=== PATIENT | male | born 1955 | race Caucasian/White ===

== ENCOUNTER 2020-01-05 13:24 | Emergency (ER) | payer BC, SELFPAY ==
[2020-01-05 13:26] VITALS: BP 159/88; PULSE 88; RESP 18; TEMP 36.4; O2SAT 96; BMI 25.9
--- NOTE | 2020-01-05 14:17 | ED.VIS.BACK ---
History of Present Illness Chief Complaint: Back Narrative: Patient presenting for evaluation secondary to back pain. History was somewhat limited on the patient secondary to his speech being difficult to understand. Patient reports that since Sunday he has been having back pain. He does feel that this was associated with lifting twisting pushing and pulling. Patient denies that there is any sort of specific injury associated with this, but states that over the course of the week it is been getting worse and now it radiates somewhat down his left leg. He states that the pain in his left leg is associated with a burning, be stinging type pain. He denies any bowel or bladder incontinence. Denies any fevers. Denies any recent injections, surgeries, or IV drug abuse. No numbness or weakness associated with this. Patient reports that he has not taken any [id number] analgesics for this. Review of systems otherwise negative. Past Medical History - Allergies and Home Meds Allergies/Adverse Reactions: Allergies No Known Allergies Allergy (Verified 01/05/20 13:28) Primary Care Physician: Trevre Acharya MD [STAFF PHYSICIAN] - As Needed Prior records reviewed: Yes Past Medical History: None Smoking Status: Never smoker Review of Systems All systems negative except as indicated General: Denies: Chills, Fever, Sweats Eyes: Denies: Visual changes - bilaterally, Diplopia ENT: Denies: Rhinorrhea, Sore throat Cardiovascular: Denies: Chest pain, Palpitations Respiratory: Denies: Dyspnea, Cough, Dyspnea on exertion Gastrointestinal: Denies: Abdominal pain, Nausea, Vomiting, Diarrhea, Melena, Hematochezia Genitourinary: Denies: Dysuria, Hematuria, Frequency Musculoskeletal: Reports: Back pain Skin: Denies: Rash, Wounds Neurological: Denies: Headache, Weakness, Numbness Physical Exam Vital Signs/Narrative: Vital Signs Temp Pulse Resp BP Pulse Ox 01/05/20 13:26 97.6 F L 88 18 159/88 H 96 Inital Vital Signs reviewed: Yes General: Well nourished, Well developed Head: Normocephalic, Atraumatic Eyes: Perrl, EOMI ENT: Moist mucous membranes, No rhinorrhea Neck: Supple, Nontender Cardiovascular: Regular rate, Regular rhythm, No murmurs Respiratory: No distress, CTA bilaterally, Chest nontender Abdomen: Soft, Nontender, Nondistended, Normal bowel sounds. Negative for: Pulsatile mass Back: Normal Inspection, Nontender, - - No reproducible tenderness of the back. 5 out of 5 strength at the hip knee ankle and foot with normal sensation over all dermatomes. 2+ Achilles and patellar reflexes with negative clonus. Normal distal pulses. Negative straight leg raise bilaterally. Extremeties: Nontender, No edema Skin: Normal color, No rash Neuro: Alert, Oriented, Normal Strength, Normal Sensation, Normal DTR, Normal Gait Psychological: Normal affect Diagnostic/Tx/Re-eval - Medical Decision Making Patient presented secondary to back pain. He has a reassuring physical exam, no evidence of red flag signs or symptoms or indications for neuroimaging. Patient has not tried any sort of intervention at home including no NSAIDs, so starting the patient on a initial course of NSAIDs for potential sciatica seems appropriate. He was placed on a course of Naprosyn. He was discharged in stable condition. ED Disposition - Plan for ED Patient: Disposition: Home or Assisted Living Diagnosis: Sciatica Instructions: Understanding Sciatica Prescriptions: Naproxen 500 mg PO BID #20 tab Prescription Printed Referrals: Trever Acharya MD [STAFF PHYSICIAN] - As Needed
[2020-01-05 15:01] VITALS: RESP 16
== END 2020-01-05 15:01 | disposition home or self-care (01) ==
LOC: ED 14:48
PROVIDERS: Emergency Provider Emergency Medicine
DX: M54.42 Lumbago with sciatica, left side (principal)
CPT/HCPCS: 99282

== ENCOUNTER 2020-04-14 15:28 | Emergency (ER) | payer BC, SELFPAY ==
[2020-04-14 15:29] VITALS: BP 167/111; PULSE 111; RESP 18; TEMP 36.8; O2SAT 97; BMI 25.9
[2020-04-14 15:50] VITALS: O2SAT 98
--- NOTE | 2020-04-14 15:50 | EKG12_ITS ---
Test Reason : CP Blood Pressure : / mmHG Vent. Rate : 108 BPM Atrial Rate : 108 BPM P-R Int : 134 ms QRS Dur : 070 ms QT Int : 320 ms P-R-T Axes : 035 -22 018 degrees QTc Int : 428 ms Sinus tachycardia Minimal voltage criteria for LVH, may be normal variant Inferior infarct , age undetermined Abnormal ECG Confirmed by ROSEMARIE SKELTON, CHAMP ([id number]), movie editor WILFRID RODRIGUEZ ([id number]) on 04/19/2020 12:51:56 PM Referred By: HARINDER Confirmed By:CHAMP HOUSTON MD
--- NOTE | 2020-04-14 16:00 | RAD_ITS ---
STUDY: X-RAY CHEST REASON FOR EXAM: Male, 64 years old. RIGHT SIDED CHEST PAIN FOR 1 WEEK TECHNIQUE: Single AP portable view of the chest. COMPARISON: None. FINDINGS: Moderate lung volumes. No infiltrates or effusions. There is mild cardiac enlargement. Normal mediastinum and saturnino. Normal visualized pulmonary arteries. Normal visualized aortic arch and descending thoracic aorta. Normal visualized thoracic spine. Normal visualized ribs, clavicles, and shoulders. There is no demonstrated abnormality of the visualized soft tissue structures of the upper abdomen. RAD/Chest 1 View (Portable) IMPRESSION: No definite acute or significant abnormality seen. Electronically Signed: Jesse Velarde MD at 16:13 EDT , Service support ,
[2020-04-14] MEDS: Acetaminophen 500 MG Tablet 1000 MG PO (16:06)
[2020-04-14] MEDS: Aspirin 81 MG TAB.CHEW 324 MG PO (16:06)
[2020-04-14] MEDS: 0.9% Normal Saline 1,000 ML 1000 ML IV (16:06)
[2020-04-14 16:11] LABS: Absolute Lymphocyte Count 0.61 X10^3/uL (0.83-4.51); Absolute Neutrophil Count 4.3 X10^3/uL (2.0-7.7); Basophil# 0.02 X10^3/uL; Basophil% 0.4 % (0-1); Eosinophil# 0.03 X10^3/uL; Eosinophils% 0.5 % (0-5); Hematocrit 46.1 % (40-54); Hemoglobin 15.5 g/dL (13.0-16.5); Lymphocyte # 0.61 X10^3/ul (4.0); Lymphocyte % 10.9 % (19-41); Mean Corp Hgb Conc 33.6 g/dL (32-36); Mean Corpuscular Hgb 34.4 pg (27.0-32.0); Mean Corpuscular Volume 102.2 fL (80-94); Mean Platelet Vol. 8.9 fl (6.2-12.0); Monocyte# 0.63 X10^3/uL; Monocyte% 11.2 % (0-10); NRBC Flagged by Analyzer 0 % (0-5); Neutrophil % 76.6 % (47-70); Platelet Count 317 K/mm3 (150-450); RBC Distribution Width CV 12.5 % (11.6-14.6); RBC Distribution Width SD 47.3 fl (35.1-43.9); Red Blood Count 4.51 M/mm3 (4.6-6.2); White Blood Count 5.6 K/mm3 (4.4-11.0)
--- NOTE | 2020-04-14 16:23 | ED.VISSUMM ---
- ER Visit Summary Date of Service: 04/14/20 Chief Complaint: Chest pain History of Present Illness: The patient is a 64 M presenting with chest pain. Patient states this started approximately 1 week ago. Pain is intermittent on the right side of his chest. It is worsened with bending over. He has associated shortness of breath. Denies fever or cough. He is not a smoker. Denies recent fall. Denies other complaints. Physical Examination: Vitals are stable. Patient is afebrile. Alert no acute distress. HEENT exam is unremarkable. Neck is supple. Lungs are clear and equal bilaterally. Right chest wall tenderness with no crepitus Heart is regular rate and rhythm. Abdomen is soft nontender nondistended. Extremities are unremarkable. Skin is warm and dry. No rash No focal neurologic deficit. Remainder of exam is unremarkable. Emergency Department Course and Treatment: EKG is sinus tachycardia rate of 108 with no acute ischemic changes. Patient declined morphine, he was given Tylenol. Chest x-ray shows no acute process. CBC, chemistries unremarkable. Troponin is negative. D-dimer was 0.55. This was discussed with the patient. Recommend CTA chest to rule out PE. Patient declines further testing and states he needs to leave the emergency department. He is advised risks of leaving AGAINST MEDICAL ADVICE including [place], . Patient understands these risks and signed out AGAINST MEDICAL ADVICE. He is advised to return to the ED if he has worsening complaints. Disposition: Left AGAINST MEDICAL ADVICE Impression: Chest pain This note was generated with [employer] dictation software. It may contain incorrect words, spelling, and punctuation that were not noted in review of the chart prior to signing ED Disposition - Plan for ED Patient: Instructions: ED Chest Pain Atypical Unkn Cause Referrals: Raul Zuniga DO [NON CLINICAL AFFILIATE] -
[2020-04-14 16:27] LABS: Anion Gap 6 (5-15); BUN 12 mg/dL (7-18); BUN/Creat Ratio 12.8 RATIO (10-20); Calcium,Total 8.9 mg/dL (8.5-10.1); Chloride 107 mmol/L (98-107); Creatinine, Serum 0.94 mg/dL (0.70-1.30); EST Glomerular Filtration Rate 87 mL/min (>60); Est Glom Filt Rate - Afr Amer 105 mL/min (>60); Estimated Creatinine Clearance 78.83 ml/min; Glucose 94 mg/dL (74-106); Potassium 4.1 mmol/L (3.5-5.1); Sodium Level 141 mmol/L (136-145)
[2020-04-14 17:00] LABS: D-Dimer Quantitative (DVT/PE) 0.55 FEU/ug/m (0.27-0.49)
--- NOTE | 2020-04-14 17:12 | ED.DEP ---
ED Disposition - Plan for ED Patient: Instructions: ED Chest Pain Atypical Unkn Cause Referrals: Raul Zuniga DO [NON CLINICAL AFFILIATE] -
[2020-04-14 17:24] VITALS: BP 164/90; PULSE 76; RESP 18; O2SAT 99
== END 2020-04-14 17:26 | disposition left against medical advice (07) ==
PROVIDERS: Emergency Provider Emergency Medicine
DX: R07.89 Other chest pain (principal); R06.00 Dyspnea, unspecified; Z53.21 Procedure and treatment not carried out due to patient leaving prior to being seen by health care provider
CPT/HCPCS: 71045; 80048; 84484; 85025; 85379; 93005; 96360; 99285; J7030; A4216

== ENCOUNTER 2021-04-16 08:27 | Emergency (ER) | payer MEDICARE, SELFPAY ==
[2021-04-16 08:28] VITALS: BP 149/117; PULSE 109; RESP 20; TEMP 35.9; O2SAT 97; BMI 26.2
[2021-04-16 08:30] VITALS: BP 149/117; PULSE 109; RESP 20; TEMP 35.9; O2SAT 97
[2021-04-16] MEDS: Loratadine 10 MG Tablet 5 MG PO (09:05)
--- NOTE | 2021-04-16 09:18 | EX.ED.DYSGE1 ---
HPI History of Present Illness Chief Complaint: Cough Narrative Narrative: Patient presents with cough and congestion runny nose itchy eyes for 1 week. No shortness of breath. No fever or chills. 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 [facility] Home Medications NK 04/14/20 [History Last Taken Unknown] Allergy/AdvReac Type Severity Reaction Status Date / Time bee venom protein (honey bee) Allergy Anaphylaxis Verified 04/16/21 08:28 Social History Smoking Status: Unknown if ever smoked ROS ROS ED ROS Narrative Past medical history: Reviewed, negative Medications: Reviewed Social history: Noncontributory Review of systems: All systems negative except as indicated General: No fever Eyes: No visual changes. Itchy eyes ENT: Rhinorrhea, upper airway congestion, itchy eyes Neck: No neck pain Cardiovascular: No chest pain Respiratory: No shortness of breath. There is a nonproductive cough. Gastrointestinal: No abdominal pain, nausea vomiting or diarrhea Genitourinary: No dysuria Musculoskeletal: Denies myalgias no difficulty with ambulation Skin: No rash Neurological: No memory loss, confusion or any focal weakness Hematologic: No easy bleeding or easy bruising EXAM Physical Exam Narrative Exam Narrative: Physical exam General: Well nourished, Well developed, No Acute Distress Head: Normocephalic, Atraumatic Eyes: Conjunctiva not pale ENT: Moist mucous membranes. He has upper airway congestion and rhinorrhea. Nasal turbinates are swollen but they are not red. No significant postnasal drip. No pharyngeal erythema. Normal voice. Neck: Supple, Nontender, No lymphadenopathy Cardiovascular: Regular rate, Regular rhythm Respiratory: No distress, CTA bilaterally Abdomen: Soft, Nontender, Nondistended Back: Nontender, Normal Inspection. Negative for: CVA tenderness Extremities: Nontender, No edema Skin: Normal color, No rash Neurological: Alert, Normal Strength, Normal Sensation Psychological: Normal affect Const Vital Signs: 04/16/21 08:28 04/16/21 08:30 04/16/21 08:43 Temperature 96.6 F L 96.6 F L Temperature Source Temporal Temporal Pulse Rate 109 H 109 H Respiratory Rate 20 H 20 H Respiratory Effort Normal Non-Labored Blood Pressure 149/117 H 149/117 H Blood Pressure Mean 127 127 Pulse Ox 97 97 Oxygen Delivery Method Room Air Room Air MDM MDM MDM Narrative Medical decision making narrative: Patient is found to have COVID-19 with corresponding infiltrates on the x-ray. Otherwise he is saturating well he appears well. He is 65 years old without any medical problems therefore he does not meet criteria for monoclonal antibodies at this time. I will discharge with education and reassurance of anything changes he is to return. Otherwise he is to quarantine. Discharge Plan Triage Chief Complaint: Cough ED Provider: Bebo Cerda Dx/Rx/DC Orders Clinical Impression: COVID-19 Instructions: Coronavirus Disease 2019 (COVID-19): Overview Prescriptions: No Action NK RF: 0 Primary Care Provider: Care Physician,No Primary Referrals: Care Physician,No Primary [Primary Care Provider] - 3-5 Days Disposition Disposition: Home, Self Care
--- NOTE | 2021-04-16 09:20 | RAD_ITS ---
STUDY: X-RAY CHEST REASON FOR EXAM: Male, 65 years old. Cough TECHNIQUE: Single AP portable upright view of the chest. Images degraded by some motion artifact near the level of the diaphragm COMPARISON: Portable AP upright chest x-ray 04/14/2020 FINDINGS: The lungs are incompletely expanded which, when combined with motion artifact, limits evaluation. Some degree of bibasilar volume loss is likely present, but there is no acute lobar consolidation. There is no demonstrated pleural abnormality. There is borderline cardiomegaly. Normal mediastinum and saturnino. Normal visualized pulmonary arteries when allowing for crowding. Normal visualized aortic arch and descending thoracic aorta. There are stable multilevel degenerative changes of the visualized thoracic spine. Normal visualized ribs, clavicles, and shoulders. There is no demonstrated abnormality of the visualized soft tissue structures of the upper abdomen. RAD/Chest 1 View (Portable) IMPRESSION: X-ray examination of the chest degraded by poor territory effort and motion artifact. The heart is borderline enlarged. No overt CHF or new pneumonic infiltrate. Electronically Signed: Geovanny Garsia MD at 9:47 EDT , Service support ,
[2021-04-16 10:30] VITALS: RESP 14
[2021-04-16 10:32] VITALS: O2SAT 95
== END 2021-04-16 10:32 | disposition home or self-care (01) ==
PROVIDERS: Emergency Provider Emergency Medicine
DX: U07.1 COVID-19 (principal)
CPT/HCPCS: 71045; 87426; 99282

== ENCOUNTER 2022-05-17 18:16 | Emergency (ER) | payer MEDICARE, SELFPAY ==
[2022-05-17 18:17] VITALS: BP 168/94; PULSE 92; RESP 16; TEMP 37.1; O2SAT 96; BMI 29.4
--- NOTE | 2022-05-17 19:25 | ED.RN ---
pt states he is going home and will come back tomorrow
== END 2022-05-17 19:30 | disposition left against medical advice (07) ==
LOC: ED 19:45
DX: Z53.21 Procedure and treatment not carried out due to patient leaving prior to being seen by health care provider (principal)

== ENCOUNTER → 2022-06-15 | Outpatient (CLI) | payer MEDICAID, SELFPAY ==
[2022-06-15 11:48] LABS: Absolute Lymphocyte Count 0.67 X10^3/uL (0.83-4.51); Absolute Neutrophil Count 3.8 X10^3/uL (2.0-7.7); Basophil# 0.04 X10^3/uL; Basophil% 0.7 % (0-1); Eosinophil# 0.42 X10^3/uL; Eosinophils% 7.6 % (0-5); Hematocrit 48.6 % (40-54); Hemoglobin 16.7 g/dL (13.0-16.5); Lymphocyte # 0.67 X10^3/ul (0.83-4.51); Lymphocyte % 12.2 % (19-41); Mean Corp Hgb Conc 34.4 g/dL (32-36); Mean Platelet Vol. 8.9 fl (6.2-12.0); Monocyte# 0.53 X10^3/uL; Monocyte% 9.6 % (0-10); NRBC Flagged by Analyzer 0 % (0-5); Neutrophil # 3.84 X10^3/uL (2.7-7.7); Neutrophil % 69.7 % (47-70); Platelet Count 251 K/mm3 (150-450); RBC Distribution Width CV 12.3 % (11.6-14.6); RBC Distribution Width SD 45.2 fl (35.1-43.9); Red Blood Count 4.91 M/mm3 (4.6-6.2); White Blood Count 5.5 K/mm3 (4.4-11.0)
[2022-06-15 12:12] LABS: Anion Gap 7 (5-15); BUN 9 mg/dL (7-18); Calcium,Total 9.4 mg/dL (8.5-10.1); Chloride 106 mmol/L (98-107); EST Glomerular Filtration Rate 90 mL/min (>60); Est Glom Filt Rate - Afr Amer 109 mL/min (>60); Glucose 94 mg/dL (74-106); Potassium 4.3 mmol/L (3.5-5.1); Sodium Level 138 mmol/L (136-145)
== END | disposition home or self-care (01) ==
PROVIDERS: Visit Provider Nurse Practitioner Family
DX: R05.3 Chronic cough (principal)
CPT/HCPCS: 36415; 80048; 85025

== ENCOUNTER → 2022-06-16 | Outpatient (CLI) | payer MEDICAID, SELFPAY ==
--- NOTE | 2022-06-16 09:37 | RAD_ITS ---
INDICATION: CHRONIC COUGH EXAMINATION/TECHNIQUE: X-RAY - XR Chest 2 Views COMPARISON: 04/16/2021 chest x-ray FINDINGS: LINES/DEVICES: None. LUNGS: Symmetric normal lung volumes. No airspace opacity or abnormal interstitial pattern. No nodule or mass. No pleural effusion or pneumothorax. MEDIASTINUM AND CARDIOVASCULAR STRUCTURES: Normal size and contour of the cardiomediastinal silhouette. No evidence of pulmonary vascular congestion. BONES AND SOFT TISSUES: No fracture or focal osseous lesion. Moderate degenerative changes left glenohumeral joint. [id number] degenerative endplate changes of the visualized spine. RAD/Chest PA and Lateral IMPRESSION: 1. No radiographic evidence of acute cardiopulmonary disease. Electronically Signed: Chu Ibarra DO at 20:29 EST ,
== END | disposition home or self-care (01) ==
PROVIDERS: Referring Provider Nurse Practitioner Family; Visit Provider Nurse Practitioner Family
DX: R05.3 Chronic cough (principal)
CPT/HCPCS: 71046

== ENCOUNTER 2022-06-27 09:18 | Emergency (ER) | payer MEDICAID, SELFPAY ==
[2022-06-27 09:18] VITALS: PULSE 101; RESP 16; TEMP 36.7; O2SAT 96; BMI 25.7
--- NOTE | 2022-06-27 09:54 | CT_ITS ---
HISTORY: Anterior left rib trauma. Fell 3 days ago, left rib pain. TECHNIQUE: Helically acquired images were obtained of the chest without contrast. A radiation dose optimization technique was used for this scan. 940 images. COMPARISON: XR 06/16/2022. FINDINGS: LARGE AIRWAYS: Patent. LUNGS: Calcified granulomas and mild dependent atelectasis bilaterally. PLEURA: No pneumothorax or significant pleural effusion. HEART/PERICARDIUM: Heart within normal limits in size. Minimal coronary artery calcification. No pericardial effusion. VESSELS: Thoracic aorta nondilated. Mild atherosclerosis. MEDIASTINUM/JERALD: Mildly enlarged precarinal and paratracheal, and subcarinal lymph nodes. Calcified hilar and mediastinal lymph nodes also noted. UPPER ABDOMEN: Unremarkable. BONES: Old right posterior fifth and sixth and 10th and 11th rib fractures. Nondisplaced left anterior fourth through sixth rib fractures. Mild degenerative changes and scoliosis of the spine. CT/Chest without Contrast IMPRESSION: Nondisplaced left anterior fourth through sixth rib fractures. Chronic granulomatous disease in the chest with mildly enlarged calcified and noncalcified lymph nodes. Old right posterior rib fractures. Electronically Signed: Laisha Lambert MD at 10:27 EST ,
--- NOTE | 2022-06-27 10:03 | EX.ED.GENINJ ---
HPI History of Present Illness Chief Complaint: Fall Informant: patient Narrative Narrative: Patient presented to the emergency room with left anterior chest pain. Patient states that on Sunday he fell at his house striking the table on his left anterior ribs. He also notes that he injured his left lateral thigh and that is bruised. He states that he is continue to have pain in the chest and that its making him feel short of breath because he cannot take a deep breath. He denies any hemoptysis or fevers. He notes a slight cough. No abdominal symptoms and no hematuria. [facility] Medical History (Updated 06/27/22 @ 10:[address] Gab Schuler DO) HTN (hypertension) Home Medications oxycodone-acetaminophen 5 mg-325 mg tablet 1 tab PO Q6H PRN PRN pain 5 days #20 TABLETS 06/27/22 [Rx Last Taken Unknown] Allergy/AdvReac Type Severity Reaction Status Date / Time bee venom protein (honey bee) Allergy Anaphylaxis Verified 06/27/22 09:21 Social History (Updated 06/27/22 @ 10:[address] Gab Schuler DO) Smoking Status: Former smoker substance use type: does not use ROS ROS ED Constitutional Constitutional ED: Denies chills, fever(s) or weight loss Eyes Eyes: Denies change in vision or diplopia ENT ENT ED: Denies ear pain, rhinorrhea or sore throat Cardiovascular Cardiovascular: Reports chest pain; Denies orthopnea, palpitations or racing heartbeat Respiratory/Chest Respiratory/Chest: Denies cough, dyspnea or orthopnea Gastrointestinal Gastrointestinal: Denies abdominal pain, diarrhea, nausea or vomiting Genitourinary Genitourinary ED: Denies dysuria, hematuria or urinary frequency Musculoskeletal Musculoskeletal: Reports other; Denies arthralgias or myalgias Integumentary Denies abscess or rash Neurologic Neurologic: Denies headache(s) or weakness Psychiatric Psychiatric: Denies anxiety, depression, suicidal ideation or suicidal thoughts Endocrine Endocrinology: Denies polydipsia, polyphagia or polyuria Allergic/Immunologic Allergic/Immunologic ED: Denies mouth swelling, tongue swelling or urticaria EXAM Physical Exam Const Vital Signs: 06/27/22 09:18 06/27/22 10:11 Temperature 98.1 F Temperature Source Temporal Pulse Rate 101 H Respiratory Rate 16 Respiratory Effort Normal Non-Labored Pulse Ox 96 Oxygen Delivery Method Room Air Positive well nourished and well developed General Appearance ED: well developed HEENT Reports normocephalic, head/scalp atraumatic and moist mucous membranes Eyes PERRL and EOMs intact bilaterally Neck no lymphadenopathy, supple and no JVD Chest Wall Chest Narrative: Left anterior lower chest wall tenderness to palpation. No crepitance is felt. No obvious deformities felt. Resp normal respiratory effort and clear to auscultation bilaterally Cardio regular rate, regular rhythm and no murmurs GI normal to inspection, nondistended, normoactive bowel sounds and non-tender Palpation: soft Back/Spine no CVA tenderness and normal ROM Extremity normal to inspection General Extremety ED: Negative for edema General Extremity: Negative for edema Neuro oriented x3 and CN's II-XII intact bilaterally Sensorium / Orientation: alert Motor Exam: strength 5/5 throughout Psych mental status grossly normal Mood & Affect: Negative for depressed or tearful Skin no rashes or lesions noted and no wounds MDM MDM MDM Narrative Medical decision making narrative: CT the chest was obtained which demonstrates nondisplaced fractures of the left fourth 5 and sixth ribs. Patient will have pain medicine written for him. I do not see any evidence of hemothorax or pneumothorax. There is no pneumonia. Would recommend follow-up 1 to 2 weeks return if worsening or concerns Radiography Diagnostic Testing: Clinical Impression(s) from Imaging Studies Chest CT 06/27/22 09:54 IMPRESSION: Nondisplaced left anterior fourth through sixth rib fractures. Chronic granulomatous disease in the chest with mildly enlarged calcified and noncalcified lymph nodes. Old right posterior rib fractures. Electronically Signed: Laisha Lambert MD at 10:27 EST , Discharge Plan Triage Chief Complaint: Fall ED Provider: Gab Schuler Dx/Rx/DC Orders Clinical Impression: Contusion of left thigh, Left rib fracture, Fall Instructions: ED Rib Fracture Prescriptions: New oxycodone-acetaminophen [oxycodone-acetaminophen] 5-325 mg tablet 1 tab PO Q6H PRN PRN (Reason: pain) 5 Days Qty: 20 0RF [facility]Primary Care Provider] - 1-2 Weeks Disposition Disposition: Home, Self Care
== END 2022-06-27 11:02 | disposition home or self-care (01) ==
PROVIDERS: Emergency Provider Emergency Medicine; Visit Provider Emergency Medicine
DX: S22.43XA Multiple fractures of ribs, bilateral, initial encounter for closed fracture (principal); I10 Essential (primary) hypertension; S70.12XA Contusion of left thigh, initial encounter; Z87.891 Personal history of nicotine dependence; W19.XXXA Unspecified fall, initial encounter
CPT/HCPCS: 71250; 99282

== ENCOUNTER → 2022-09-28 | Outpatient (CLI) | payer MEDICAID, SELFPAY ==
--- NOTE | 2022-09-28 15:50 | RAD_ITS ---
STUDY: X-RAY - LEFT KNEE REASON FOR EXAM: Male, 66 years old. L KNEE PAIN TECHNIQUE: 3 view(s) of the knee. COMPARISON: None. FINDINGS: Normal visualized distal femur. Normal visualized proximal tibia and fibula. Normal proximal tibiofibular articulation. Mildly narrowed medial femorotibial compartment. Normal lateral femorotibial compartment. Normal patellofemoral articulation. The soft tissue structures are unremarkable. RAD/Knee 3 Views IMPRESSION: Mild degenerative change. No acute fracture or other significant bony pathology Electronically Signed: Yonathan Dumont MD at 21:48 EST ,
--- NOTE | 2022-09-28 15:50 | RAD_ITS ---
STUDY: X-RAY - LUMBAR SPINE REASON FOR EXAM: Male, 66 years old. LUMBAR PAIN TECHNIQUE: AP and lateral view(s) of the lumbar spine were obtained. COMPARISON: None FINDINGS: Normal lumbar lordosis. There is severe dextro scoliosis. There is a normal alignment of the vertebrae. No evidence for acute fracture or subluxation. No lytic or sclerotic bony lesions . Multilevel disc space narrowing and endplate spurring. The soft tissue structures are unremarkable. RAD/Lumbar Spine 2 or 3 Views IMPRESSION: Scoliosis and degenerative change. No acute fracture or other significant bony pathology. Electronically Signed: Yonathan Dumont MD at 21:43 EST ,
--- NOTE | 2022-09-28 16:00 | RAD_ITS ---
STUDY: X-RAY - PELVIS AND LEFT HIP REASON FOR EXAM: Male, 66 years old. LUMBAR PAIN TECHNIQUE: 3 views of the pelvis and hip. COMPARISON: None. FINDINGS: There is a non-specific bowel gas pattern. Normal visualized soft tissue structures. Normal bilateral iliac wings, sacroiliac joints and visualized sacrum. Normal bilateral superior and inferior pubic rami. Normal pubic symphysis. Normal bilateral ischial tuberosities. Normal visualized femoral head. Mild acetabular spurring.. Narrowed superolateral hip joint. RAD/HIP, UNI W/ Pelvis 2-3 Views IMPRESSION: Degenerative changes of the left hip [. No acute hip or pelvic fracture. Electronically Signed: Yonathan Dumont MD at 21:49 EST ,
== END | disposition home or self-care (01) ==
LOC: RAD 15:46
PROVIDERS: Referring Provider Nurse Practitioner Family; Visit Provider Nurse Practitioner Family
DX: M25.562 Pain in left knee (principal); M54.16 Radiculopathy, lumbar region
CPT/HCPCS: 72100; 73502; 73562

== ENCOUNTER 2022-10-05 14:18 | Emergency (ER) | payer MEDICARE, MEDICAID, SELFPAY ==
[2022-10-05 14:19] VITALS: BP 159/82; PULSE 74; RESP 14; TEMP 36.8; O2SAT 98; BMI 25.5
--- NOTE | 2022-10-05 16:43 | EX.ED.DYSGE1 ---
HPI <CRISTINA Camargo - Last Filed: 10/05/22 17:40> History of Present Illness Chief Complaint: Other, Pain/Inj Narrative Narrative: 66-year-old male with history of difficulty speaking secondary to an accident when he was 20 years old presents to the emergency department for left sided rib pain. Patient denies any injury. Patient states it hurts with certain movements as well as lifting objects. He was told to come here to be evaluated. Patient states that it feels muscle skeletal however he wants to be sure. He denies any cough, fever chills nausea or vomiting. Denies any injury. PFS <CRISTINA Camargo - Last Filed: 10/05/22 17:40> [facility] Medical History HTN (hypertension) Home Medications oxycodone-acetaminophen 5 mg-325 mg tablet 1 tab PO Q6H PRN PRN pain 5 days #20 TABLETS 06/27/22 [Rx Last Taken Unknown] ibuprofen 600 mg tablet 600 mg PO Q6H PRN PRN pain #20 TABLETS 10/05/22 [Rx Last Taken Unknown] Allergy/AdvReac Type Severity Reaction Status Date / Time bee venom protein (honey bee) Allergy Anaphylaxis Verified 10/05/22 14:20 Social History (Updated 06/27/22 @ 10:[address] Gab Schuler, DO) Smoking Status: Former smoker substance use type: does not use ROS <CRISTINA Camargo - Last Filed: 10/05/22 17:40> ROS ED ROS Narrative Constitutional: Negative for fever, chills, weight loss, weakness Eyes: Negative for vision loss, vision change, double vision ENT: Negative for any sore throat, ear pain, congestion Cardiovascular: Negative for any chest pain, tightness, palpitations Respiratory: Negative for any cough, sputum production, hemoptysis, dyspnea, dyspnea on exertion, orthopnea Gastrointestinal: Negative for any abdominal pain, nausea, vomiting, diarrhea, constipation, blood in stool, blood in vomit : Negative for any urinary frequency, dysuria, retention, blood in urine Muscle skeletal: Negative for any muscle joint pain, stiffness, myalgias, arthralgias, neck pain. Positive for left anterior chest pain Neurological: Negative for any headache, syncope, numbness or tingling, dizziness Skin: Negative for any rashes, lumps, itching, abrasions, lacerations Psychiatric: Negative for any depression, anxiety, stress, suicidal ideation, homicidal ideation Hematologic: Negative for any easy bruising, excessive bruising, easy bleeding Allergies: Negative for any eczema, hives, rash EXAM <CRISTINA Camargo - Last Filed: 10/05/22 17:40> Physical Exam Narrative Exam Narrative: Vital signs reviewed. HEET: Head normocephalic atraumatic, TMs clear bilaterally. Posterior pharynx is clear, moist mucous membranes. Nares clear bilaterally. Neck: Supple with no lymphadenopathy or tenderness. No signs of meningismus, negative jolt sign. Cardiac: Regular rate and rhythm no murmurs gallops or rubs, equal peripheral pulses bilaterally. Respiratory: Lungs clear to auscultation bilaterally. Patient has some left anterior, lateral chest tenderness. Worse on palpation. When raising the patient's arms up and turning, this caused more pain. Denies any pain with inspiration. Abdomen: Soft, nontender, nondistended. No abdominal bruit or pulsatile masses. No hepatosplenomegaly Extremities: No peripheral edema, no signs of gross trauma or deformity. Active full range of motion of all extremities. Neuro: Cranial nerves II through XII intact, no focal neurological deficits. Skin: Clean dry and intact with no rash, purpura, petechiae, vesicles or pustules. Backs/flank: No CVA tenderness, no midline spinal tenderness, no deformity. Psych: Normal mood and affect. No SI, HI or acute psychosis. Const Vital Signs: 10/05/22 14:19 10/05/22 17:47 Temperature 98.3 F Temperature Source Temporal Pulse Rate 74 Respiratory Rate 14 Respiratory Effort Normal Respiratory Pattern Normal Blood Pressure 159/82 H Blood Pressure Mean 107 Pulse Ox 98 Oxygen Delivery Method Room Air Positive well nourished and well developed General Appearance ED: well developed <Dr. Gee Talley DO - Last Filed: 10/05/22 23:13> Physical Exam Const Vital Signs: 10/05/22 14:19 10/05/22 17:47 Temperature 98.3 F Temperature Source Temporal Pulse Rate 74 Respiratory Rate 14 Respiratory Effort Normal Respiratory Pattern Normal Blood Pressure 159/82 H Blood Pressure Mean 107 Pulse Ox 98 Oxygen Delivery Method Room Air MDM <CRISTINA Camargo - Last Filed: 10/05/22 17:40> [facility] Radiography Diagnostic Testing: Clinical Impression(s) from Imaging Studies Ribs w/Chest X-Ray 10/05/22 16:50 IMPRESSION: Negative chest and left ribs series. Electronically Signed: Henok Lezama MD at 17:13 EST , Treatment and Re-Evaluation :: All radiologic examinations were read, reviewed by the emergency department attending. From these reads, a plan of care will be put in place. Patient appears well, patient appears nontoxic, vital signs are stable. Patient presents to the emergency department with complaints of left-sided rib pain has been ongoing for last week. Patient thinks it is a muscle pain however he is concerned, and he was told to come to the emergency department. Patient's physical examination is consistent with a muscle strain. Patient will receive x-rays of the left side of the ribs as well as a chest. Differential diagnosis include pneumonia, costochondritis, rib fracture. Patient had no significant trauma, patient's x-rays were unremarkable. At this time, patient be treated with a muscle strain. He will be treated with ibuprofen 600 mg. He is instructed return for any worsening symptoms. Patient stable for discharge. <Dr. Gee Talley DO - Last Filed: 10/05/22 23:13> [facility] Narrative Medical decision making narrative: This patient was seen with a PA/FLATBED OWNER OPERATOR Individually assessed they patient including history and physical. I have reviewed everything on the chart that is available and agree with the documentation provided by the PA/FLATBED OWNER OPERATOR including discussion about the assessment, treatment plan, discussion, and return precautions. Patient with rib pain. Nontraumatic. Low suspicion for pneumonia or rib fracture but x-rays were obtained and these are negative on my interpretation. Patient request ibuprofen for home. Discharged stable condition. Radiography Diagnostic Testing: Clinical Impression(s) from Imaging Studies Ribs w/Chest X-Ray 10/05/22 16:50 IMPRESSION: Negative chest and left ribs series. Electronically Signed: Henok Lezama MD at 17:13 EST , Discharge Plan Triage Chief Complaint: Other, Pain/Inj ED Midlevel Provider: Bebo Arriaga ED Provider: Gee Talley Dx/Rx/DC Orders Clinical Impression: Acute chest wall pain Instructions: ED Chest Pain, Noncardiac Prescriptions: New ibuprofen 600 mg tablet 600 mg PO Q6H PRN PRN (Reason: pain) Qty: 20 0RF No Action oxycodone-acetaminophen [oxycodone-acetaminophen] 5-325 mg tablet 1 tab PO Q6H PRN PRN (Reason: pain) 5 Days Qty: 20 0RF Primary Care Provider: [facility] Priti Littlejohn Referrals: [facility] Eron,Priti Ruiz [Primary Care Provider] - Disposition Disposition: Home, Self Care Discharge Date/Time: 10/05/22 17:49
--- NOTE | 2022-10-05 16:50 | RAD_ITS ---
EXAM: XR LEFT RIBS AND AP CHEST, 3 OR MORE VIEWS CLINICAL INDICATION: rib pain TECHNIQUE: Frontal and oblique views of the left ribs and frontal view of the chest. This report was created using mohchi report Pond[employer] technology. COMPARISON: None. FINDINGS: LUNGS AND PLEURAL SPACES: Unremarkable. No consolidation or edema. No pneumothorax. No effusion. HEART: Unremarkable. Cardiac silhouette not enlarged. MEDIASTINUM: Central airways and mediastinal contour are unremarkable. BONES/JOINTS: Unremarkable. No evidence of displaced rib fractures. RAD/Ribs Uni Min 3V w/PA Chest IMPRESSION: Negative chest and left ribs series. Electronically Signed: Henok Lezama MD at 17:13 EST ,
== END 2022-10-05 17:49 | disposition home or self-care (01) ==
PROVIDERS: Emergency Provider Student in an Organized Health Care Education/Training Program; Visit Provider Student in an Organized Health Care Education/Training Program
DX: R07.81 Pleurodynia (principal); R07.89 Other chest pain; Z87.891 Personal history of nicotine dependence; I10 Essential (primary) hypertension
CPT/HCPCS: 99281; 71101; 99282

== ENCOUNTER 2023-01-08 17:26 | Observation (INO) | payer MEDICARE, MEDICAID, SELFPAY ==
--- NOTE | 2022-12-29 11:49 | NURSING ---
PAT INTERVIEW WITH ROXANNA OLIVERA. ROXANNA STATES PT RESIDES AT [facility] AN INDEPENDENT RESIDENT. ROXANNA WORKS WITH PT THROUGH [facility] AND STATES THAT POSTOP PT WILL BE TRANSITIONED TO ASSISTED LIVING AT [facility]. ROXANNA STATES PT HAS SLOW MENTATION WITH NO DIAGNOSIS R/T MENTATION. ROXANNA AND PT INSTRUCTED ON MEDS TO TAKE DOS, NPO, SHOWER PREP AND ARRIVAL.
[2023-01-03 10:22] LABS: Hematocrit 48.6 % (40-54); Hemoglobin 15.7 g/dL (13.0-16.5); Mean Corp Hgb Conc 32.3 g/dL (32-36); Mean Corpuscular Hgb 32.8 pg (27.0-32.0); Mean Corpuscular Volume 101.5 fL (80-94); Mean Platelet Vol. 9.7 fl (6.2-12.0); Platelet Count 229 K/mm3 (150-450); RBC Distribution Width CV 13.2 % (11.6-14.6); RBC Distribution Width SD 50.2 fl (35.1-43.9); Red Blood Count 4.79 M/mm3 (4.6-6.2)
[2023-01-03 11:22] LABS: Anion Gap 4 (5-15); BUN 10 mg/dL (7-18); BUN/Creat Ratio 9.5 RATIO (10-20); Calcium,Total 9.1 mg/dL (8.5-10.1); Chloride 104 mmol/L (98-107); Creatinine, Serum 1.05 mg/dL (0.70-1.30); EST Glomerular Filtration Rate 75 mL/min (>60); Est Glom Filt Rate - Afr Amer 91 mL/min (>60); Glucose 80 mg/dL (74-106); Potassium 4.2 mmol/L (3.5-5.1); Sodium Level 138 mmol/L (136-145)
[2023-01-08] VITALS (11 sets, daily range): BP systolic 129–140; BP diastolic 62–91; PULSE 67–91; RESP 16–24; TEMP 36.2–37.1; O2SAT 93–100; BMI 32.1; BMI 32.2; BMI 32.4
[2023-01-08] MEDS: Lactated Ringers 1,000 ML 15 ML IV ×2 (12:40→15:40)
--- NOTE | 2023-01-08 12:46 | HP.PCM_ITS ---
History and Physical Date of Admission: 01/08/23 Intake Vital Signs ? 10/05/2313:19 12/27/2308:46 Height 5 ft 8 in 5 ft 8 in Weight: 168 lb 217 lb 8 oz BMI 25.5 33.0 BP 159/82 H 156/89 H Blood Pressure Location ? Rt radial Position ? Sitting RespirationB 14 19 H Pulse 74 68 Pulse Source ? Monitor Temp 98.3 F 97.6 F L D Temp Source Temporal Temporal Pulse Oximetry (%) 98 96 Intake Visit Reasons:?L INGUINAL HERNIA AT RISK FOR INCARCERATION Chief Complaint: inguinal hernia Allergies bee venom protein (honey bee) Allergy (Verified 10/05/22 14:20) Anaphylaxis PFSH Medical History?(Updated 12/27/22 @ 09:[address] Derrell Toribio MD) HTN (hypertension) Social History? Smoking Status:? Former smoker substance use type:? does not use HPI HPI HPI: Patient has a left inguinal hernia and is here for discussion of repair.? He says it does bother him.? He denies any nausea or vomiting or fevers or chills. ROS General General: Yes weight change; No appetite, fatigue, colon cancer, breast cancer or weakness HEENT HEENT: No difficulty swallowing, eye injury, eye surgery, swollen glands or hoarseness Endo Endocrine: No thyroid disease, diabetes mellitus, thyroid cancer, Hair loss, heat intolerance or cold intolerance Skin Skin: No rash or changing moles Breast Breast: No left breast lump, right breast lump, nipple discharge, breast pain, abnormal mammogram, abnormal US or breast enlargement Musc Musculoskeletal: Yes back problems and arthritis; No rheumatoid arthritis, gout or joint pain Cardio Cardiovascular: Yes murmur, high blood pressure and heart attack; No pacemaker, heart disease, atrial fibrillation, heart stent, palpitations, shortness of breat with exertion or chest pain Psych Psychiatric: No depression, anxiety or hearing voices Resp Respiratory: Yes shortness of breath, Yes sleep apnea, Yes cough, No COPD, No asthma, No emphysema and No wheezing Gastro Gastrointestinal: No abdominal pain, No nausea or vomiting, No diarrhea, No constipation, No blood in stool, Yes acid reflux, No hemorrhoids, No ulcers, No gallbladder problem and No black,tarry stools Van Hematologic: No blood thinners, No blood disorders, No bleeding, No anemia and No blood clots Neuro Neurologic: No system reviewed and no additional complaints, except as documented, No as per HPI, No abnormal gait, No abnormal hearing, No abnormal movements, No abnormal speech, No behavioral changes, No burning sensations, No confusion, No convulsions, No disequilibrium, No dizziness, No localized weakness, No frequent falls, No headache(s), No lack of coordination, No loss of vision, No memory loss, No numbness, No other visual disturbances, No radicular pain, No restless legs, No sensory deficit, No syncope, No tingling, No tremor(s), No weakness and No other Exam Const General: cooperative Orientation: alert and oriented x3 HENMT Head: normal to inspection Neck Neck: normal visual inspection and full ROM Chest Chest palpation & inspection: normal inspection of the chest Resp Effort & Inspection: normal respiratory effort Auscultation: clear to auscultation bilaterally Cardio Rate: regular rate Rhythm: regular rhythm GI Inspection: non-distended Palpation: soft, hernia indirect inguinal on the left and nontender Skin General: no rashes or lesions noted Neuro General: patient alert and patient oriented x3 Extrem General: full ROM Psych Appearance: grossly normal Mental Status: mental status grossly normal Assessment and Plan Assessment and Plan (1) Left inguinal hernia: ?Status:?Acute ?Plan: Patient has a large left inguinal hernia which is reducible.? I discussed robotic assisted laparoscopic left inguinal hernia repair with mesh.? I discussed this with the patient and his psychologist social.? I also discussed repairing the contralateral side if there is any hernia on that side.? I discussed the risks of the procedure such as bleeding, infection, injury to underlying organs.? Patient understands the risks and mesh placement and is willing to proceed. Derrell Toribio MD Pager: [facility] [address] [place] [address], [address] [place] [address] Office: I have examined the patient and the H&P has been reviewed. There are no clinical changes since date of exam.
[2023-01-08] MEDS: Cefazolin 2 GM in 0.9% Normal Saline 100 ML IV (13:19)
[2023-01-08] MEDS: Bupivacaine Mpf 0.5% 30 ML VIAL (14:51)
--- NOTE | 2023-01-08 15:04 | PCM.OPRPT ---
Report of Operation Date of Procedure: 01/08/23 Pre-Operative Diagnosis: Large incarcerated left inguinal hernia Post-Operative Diagnosis: Same Surgery/Procedure Performed:: Robotic assisted laparoscopic incarcerated left inguinal hernia repair with mesh Specimen's removed: Lipoma of the left cord Description of Procedure: Patient was brought back to the operating room and general anesthesia was induced. The abdomen is prepped and draped in usual sterile fashion. An incision was made superior to the umbilicus and deepened to the fascia which was elevated. Veress needle was placed into the abdomen and a drop test was performed and then the abdomen was insufflated 15 mmHg. The Veress needle was removed and a port was placed and then the camera placed into the abdomen. Patient had a very large incarcerated left inguinal hernia. With direct pressure and traction from the inside it was able to be mostly reduced but there was an adhesion from pericolonic fat to the hernia sac. This was divided and the colonic side was suture-ligated using 3-0 Vicryl suture in case this was a diverticulum. Next the colon was reflected out of the hernia. A transverse incision was made in the peritoneum superior to the hernia and using combination of blunt and electrocautery dissection it was carried down to the hernia sac. The hernia sac was very long and extended all the way into the scrotum. It was removed and dissected free along its course. There was a very large lipoma in the inguinal canal. This was reduced in the course of removing it some bleeding was encountered. This may be a testicular vein but it was unable to be followed. It did not appear to be arterial. It was clipped on both sides using the robotic clips. It appeared to be venous and not arterial and it does not appear to be the ureter. The fat was then fully removed and placed in the intra-abdominal area. Once the entire hernia sac was dissected free a piece of ProGrip mesh was unfolded over the hernia defect and extending down inferiorly to cover the hernia defect and superiorly with good overlap. The peritoneum was reapproximated using 2 3-0 V-Loc sutures. There was complete coverage of the mesh after the peritoneum was reapproximated. Next the robot was undocked and the camera was placed through the lateral port. A removal bag was placed through the camera port and the lipoma was placed into the bag. It was then removed. The scrotum was checked and appeared to have both testicles. The incisions were injected with local anesthetic and closed with interrupted 4-0 Monocryl sutures. Steri-Strips and bandages were applied. The scrotum was checked once more at the end of the case and contain both testicles. Patient was awoken and taken to PACU in stable condition. Grafts/Implants Used: ProGrip mesh Admit VTE Documentation VTE Mechan Device Prophylaxis: SCD's
--- NOTE | 2023-01-08 15:09 | DCINST_ITS ---
Discharge Instructions Procedure Hernia Diet Discharge Diet: Light diet - advance as tolerated Activity Discharge Activity: May Not Drive (for 2-3 days or while taking narcotic pain meds.) and May Shower (with the bandage in place 1-2 days after surgery.) Lifting Restrictions: 20 pounds for 6 weeks. Additional Activity Instructions:: Climbing stairs is fine, walking is encouraged. Sitting in bed may be uncomfortable. Sitting up using your lateral muscles (sitting up sideways) is usually more comfortable. Do not drive, work heavy equipment of sign legal documents for 24 hours. If your hernia repair was an inguinal repair, you may have scrotal swelling, an ice pack and/or athletic support can provide more comfort. Pain medications may cause nausea, you should typically eat light foods as you take your pain medications. Pain medications may also cause constipation. If you have difficulty with this, discuss with your doctor. Please call if there is extreme testicular pain [phone] Dressing / Incision Call your doctor if your incision/area has: Continuous Slow Oozing, Sudden Increased Bleeding, Increased Pain/ Swelling, Increased Redness and Foul Smelling Discharge Call your doctor if you observe: Fever of 101 or Higher and Inability to urinate Suture Line Care: Avoid Pulling/Pushing and Avoid Pinching/Bending Remove Dressing in: 2 days (Remove clear bandages in 2 days, remove Steri-Strips in 7 to 10 days.) Follow Up Care Please Follow Up With: Derrell Toribio MD When: Please call to schedule 1 week follow up appointment. [phone] Test Results: Test results from this visit will be discussed in further detail at your follow- up appointment, if applicable. Discharge Plan Admission Attending Provider: Derrell Toribio [facility] Orders/Prescriptions Prescriptions: New oxycodone 10 mg tablet 5 - 10 mg PO Q6H PRN (Reason: pain) 5 Days Qty: 20 0RF No Action ibuprofen 600 mg tablet 600 mg PO Q6H PRN PRN (Reason: pain) Qty: 20 0RF cetirizine 10 mg tablet 10 mg PO DAILY Label Comments: TAKE 1 TABLET BY MOUTH EVERY DAY metoprolol succinate 50 mg tablet extended release 24 hr 50 mg PO DAILY Label Comments: TAKE 1 TABLET BY MOUTH EVERY DAY amlodipine 10 mg tablet 10 mg PO DAILY Label Comments: TAKE 1 TABLET BY MOUTH EVERY DAY pantoprazole 40 mg tablet,delayed release (DR/EC) 40 mg PO DAILY Label Comments: TAKE 1 TABLET BY MOUTH EVERY DAY albuterol sulfate 90 mcg/actuation HFA aerosol inhaler 1 - 2 puff INHALATION PRN PRN (Reason: Wheezing) Label Comments: Inhale 2 inhalations every 4-6 hours as needed for shortness of breath/cough [facility] Ruiz [Primary Care Provider] - Disposition Disposition (needs filled in before D/C Order can be placed): Home, Self Care
--- NOTE | 2023-01-08 15:25 | SUR.PHASEI ---
RN called from OR stating Dr. Medina would like pt to have duoneb inhalation when he arrives to pacu.
[2023-01-08] MEDS: Ipratropium/Albuterol Sulfate 3 ML AMPUL.NEB INHALATION ×2 (15:34→19:26)
--- NOTE | 2023-01-08 17:28 | PCM.PN.BLA ---
Progress Note patient became hypoxic before extubation. received breathing treatments in PACU. was still on nasal cannula and unable to go home due to hypoxia. Chest xray ordered. pt will be admitted for observation and hospitalist consulted.
--- NOTE | 2023-01-08 17:30 | RAD_ITS ---
STUDY: XR Chest 2 Views 01/08/2023 5:33 PM REASON FOR EXAM: Male, 67 years old. CHEST PAIN sob and wheezing COMPARISON: 3.2.23 TECHNIQUE: XR Chest 2 Views FINDINGS: There is no pneumothorax. There is bilateral infiltrate / atelectasis. Right pleural thickening. Enlarged heart size. Normal mediastinum. Normal saturnino. Prominent appearing increased interstitial lung markings. Normal visualized pulmonary arteries. There is atherosclerotic calcification of the aortic arch with tortuosity. There are diffuse degenerative changes of the visualized thoracic spine. There is degenerative osteoarthritis of the bilateral shoulders. There is no demonstrated abnormality of the visualized soft tissue structures of the upper abdomen. RAD/Chest PA and Lateral IMPRESSION: Bilateral pneumonia. Electronically Signed: Jose Rafael Gipson MD at 17:46 EDT ,
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
[2023-01-08 19:02] LABS: Absolute Lymphocyte Count 0.24 X10^3/uL (0.83-4.51); Basophil# 0.02 X10^3/uL; Basophil% 0.2 % (0-1); Eosinophil# 0.02 X10^3/uL; Eosinophils% 0.2 % (0-5); Hematocrit 46.6 % (40-54); Hemoglobin 15.1 g/dL (13.0-16.5); Lymphocyte # 0.24 X10^3/ul (0.83-4.51); Lymphocyte % 2.3 % (19-41); Mean Corp Hgb Conc 32.4 g/dL (32-36); Mean Corpuscular Hgb 33.1 pg (27.0-32.0); Mean Corpuscular Volume 102.2 fL (80-94); Mean Platelet Vol. 9.1 fl (6.2-12.0); Monocyte# 0.09 X10^3/uL; Monocyte% 0.9 % (0-10); NRBC Flagged by Analyzer 0 % (0-5); Neutrophil # 9.96 X10^3/uL (2.7-7.7); Neutrophil % 96.1 % (47-70); POSITIVE DIFFERENTIAL YES; Platelet Count 242 K/mm3 (150-450); RBC Distribution Width CV 13.1 % (11.6-14.6); RBC Distribution Width SD 49.7 fl (35.1-43.9); Red Blood Count 4.56 M/mm3 (4.6-6.2); White Blood Count 10.4 K/mm3 (4.4-11.0)
[2023-01-08 19:03] LABS: Differential Indicated SCAN CRITERIA MET
[2023-01-08 19:17] LABS: BNP,B-Type NATRIURETIC PEPTIDE 21.4 pg/mL (0-100)
[2023-01-08 19:24] LABS: Anisocytosis 1+; Platelet Estimate ADEQUATE (ADEQ); Red Cell Morphology N CHROM NORMAL (NORM C&C)
[2023-01-08 19:25] LABS: Macrocytosis 1+
[2023-01-08 19:28] LABS: Vitamin B12 268 pg/mL (211-911)
[2023-01-08 19:31] LABS: ALB/GLOB Ratio 0.9 RATIO (0.9-2.4); AST(SGOT) 18 U/L (15-37); Alanine Aminotransfer ALT/SGPT 23 U/L (16-61); Albumin, Serum 3.5 g/dL (3.2-5.0); Alkaline Phosphatase 64 U/L (45-117); Anion Gap 2 (5-15); BUN 12 mg/dL (7-18); BUN/Creat Ratio 11.7 RATIO (10-20); Calcium,Total 8.6 mg/dL (8.5-10.1); Chloride 108 mmol/L (98-107); Creatinine, Serum 1.03 mg/dL (0.70-1.30); EST Glomerular Filtration Rate 77 mL/min (>60); Est Glom Filt Rate - Afr Amer 93 mL/min (>60); Estimated Creatinine Clearance 69.17 ml/min; Globulin 3.9 g/dL (2.2-4.2); Glucose 150 mg/dL (74-106); Protein, Total 7.4 g/dL (6.4-8.2); Sodium Level 137 mmol/L (136-145)
[2023-01-08] MEDS: guaiFENesin 1,200 MG Tablet 1200 MG PO (20:31)
[2023-01-09] VITALS (8 sets, daily range): BP systolic 121–150; BP diastolic 64–87; PULSE 74–94; RESP 18; TEMP 36.6–36.7; O2SAT 86–96; BMI 32.2
--- NOTE | 2023-01-09 | HERN_PTH ---
PATIENT: KRISTY MERCER Jr. LOC: MS3 U#:[id number] AGE/SX: 67/M [place] [facility] [place]08[place]: Dr. Derrell Toribio MD : 1955 BED: 1 DIS: 01/09/2023 SPEC #: [id number] RECD: 01/09/23 09:20 STATUS: MILA NGUYENRahul #: [id number] MAUREEN: 01/09/23 00:[address]: Derrell Toribio DEPT: SURGICAL PATHOLOGY RECD BY: Rosalino Garcia ENTERED: 01/09/23 09:20 SP TYPE: Hernia OTHR DR: Dr. Delicia Davis MD [facility] Tissues: HERNIA Procedures: Surgery Specimen Level III HEADER OPERATION: Robotic left inguinal hernia with mesh PRE-OP DIAGNOSIS: Left inguinal hernia TISSUE SUBMITTED: Cord lipoma left MICROSCOPIC DIAGNOSIS Left cord lipoma, excision: Mature adipose tissue, consistent with lipoma. SJ:faviola 01/10/2023 MICROSCOPIC DESCRIPTION Slides are reviewed. GROSS DESCRIPTION Received in fixative is one container labeled with the patient's name and designated cord lipoma left. The specimen consists of an irregular piece of yellow adipose tissue measuring 13.0 x 2.5 x 1.1 cm. Sections reveal yellow adipose cut surfaces without area of hemorrhage, necrosis or cystic degeneration. Public Relations Officer sections are submitted in one cassette. / TALYA:faviola 01/10/2023 TC:1 CPT: 52118
[2023-01-09 06:50] LABS: Absolute Lymphocyte Count 0.46 X10^3/uL (0.83-4.51); Absolute Neutrophil Count 10.6 X10^3/uL (2.0-7.7); Basophil# 0.01 X10^3/uL; Basophil% 0.1 % (0-1); Hematocrit 46.9 % (40-54); Hemoglobin 14.8 g/dL (13.0-16.5); Lymphocyte # 0.46 X10^3/ul (0.83-4.51); Mean Corp Hgb Conc 31.6 g/dL (32-36); Mean Corpuscular Hgb 32.4 pg (27.0-32.0); Mean Corpuscular Volume 102.6 fL (80-94); Mean Platelet Vol. 9.3 fl (6.2-12.0); Monocyte# 0.49 X10^3/uL; Monocyte% 4.2 % (0-10); NRBC Flagged by Analyzer 0 % (0-5); Neutrophil # 10.59 X10^3/uL (2.7-7.7); POSITIVE DIFFERENTIAL YES; Platelet Count 281 K/mm3 (150-450); RBC Distribution Width CV 12.9 % (11.6-14.6); RBC Distribution Width SD 48.9 fl (35.1-43.9); Red Blood Count 4.57 M/mm3 (4.6-6.2); White Blood Count 11.6 K/mm3 (4.4-11.0)
[2023-01-09 07:06] LABS: Differential Indicated SCAN CRITERIA MET
[2023-01-09 07:18] LABS: Anion Gap 5 (5-15); BUN 12 mg/dL (7-18); BUN/Creat Ratio 11.9 RATIO (10-20); Chloride 106 mmol/L (98-107); Creatinine, Serum 1.01 mg/dL (0.70-1.30); EST Glomerular Filtration Rate 79 mL/min (>60); Est Glom Filt Rate - Afr Amer 95 mL/min (>60); Estimated Creatinine Clearance 70.54 ml/min; Glucose 131 mg/dL (74-106); Potassium 4.3 mmol/L (3.5-5.1); Sodium Level 139 mmol/L (136-145)
[2023-01-09] MEDS: Ipratropium/Albuterol Sulfate 3 ML AMPUL.NEB INHALATION ×2 (07:32→11:39)
--- NOTE | 2023-01-09 07:39 | PN.HOSP_ITS ---
Reason for Visit Reason for Visit: Diagnoses Unilateral inguinal hernia, without obstruction or gangrene, not specified as r ecurrent (01/08/23) Hypoxemia (01/08/23) Encounter for other preprocedural examination (01/08/23) Subjective Subjective Patient feeling much better today, requiring O2 only with ambulation Objective Data Objective Data Vital Signs: Vital Signs Temp Pulse Resp BP Pulse Ox O2 Del Method O2 Flow Rate 98.1 F 80 18 121/68 H 96 Nasal Cannula 2 01/09/23 03:08 01/09/23 07:29 01/09/23 07:29 01/09/23 03:08 01/09/23 03:08 01/09/23 03:08 01/09/23 03:08 Oxygen Flow Rate (L/min) 2 Oxygen Delivery Method Nasal Cannula Weight: 96.9 kg Body Mass Index (BMI) 32.4 Intake & Output: Intake and Output for Last 24 Hours 01/07/23 01/08/23 01/09/23 23:59 23:59 23:59 Intake Total 1488.5 / 1488.5 Output Total 250 / 250 100 / 100 Balance 1238.5 / 1238.5 -100 / -100 Lab / Micro Data Result Diagrams: 01/09/23 06:00 01/09/23 06:00 Labs: Laboratory Results - last 24 hr 01/08/23 18:50: WBC 10.4, RBC 4.56 L, Hgb 15.1, Hct 46.6, MCV 102.2 H, MCH 33.1 H, MCHC 32.4, RDW Std Deviation 49.7 H, RDW Coeff of [place]ron[place] 13.1, Plt Count 242, MPV 9.1, Immature Gran % (Auto) 0.300, Neut % (Auto) 96.1 H, Lymph % (Auto) 2.3 L, Christian % (Auto) 0.9, Eos % (Auto) 0.2, Baso % (Auto) 0.2, Absolute Neuts (auto) 10.0 H, Absolute Lymphs (auto) 0.24 L, Nucleated RBC % 0, Differential Comment SEE COMMENT, Platelet Estimate ADEQUATE, RBC Morphology N CHROM, Anisocytosis 1+, Macrocytosis 1+ 01/08/23 18:50: Sodium 137, Potassium 4.0, Chloride 108 H, Carbon Dioxide 27.0, Anion Gap 2 L, BUN 12, Creatinine 1.03, Estim Creat Clear Calc 69.17, Est GFR (MDRD) Af Amer 93, Est GFR (MDRD) Non-Af 77, BUN/Creatinine Ratio 11.7, Glucose 150 H, Calcium 8.6, Total Bilirubin 0.40, AST 18, ALT 23, Alkaline Phosphatase 64, Total Protein 7.4, Albumin 3.5, Globulin 3.9, Albumin/Globulin Ratio 0.9, Folate 14.50 01/08/23 18:50: Vitamin B12 268 01/08/23 18:50: B-Natriuretic Peptide 21.4 01/09/23 06:00: WBC 11.6 H, RBC 4.57 L, Hgb 14.8, Hct 46.9, MCV 102.6 H, MCH 32.4 H, MCHC 31.6 L, RDW Std Deviation 48.9 H, RDW Coeff of [place] 12.9, Plt Count 281, MPV 9.3, Immature Gran % (Auto) 0.700, Neut % (Auto) 91.0 H, Lymph % (Auto) 4.0 L, Christian % (Auto) 4.2, Eos % (Auto) 0.0, Baso % (Auto) 0.1, Absolute Neuts (auto) 10.6 H, Absolute Lymphs (auto) 0.46 L, Nucleated RBC % 0 01/09/23 06:00: Sodium 139, Potassium 4.3, Chloride 106, Carbon Dioxide 28.0, Anion Gap 5, BUN 12, Creatinine 1.01, Estim Creat Clear Calc 70.54, Est GFR (MDRD) Af Amer 95, Est GFR (MDRD) Non-Af 79, BUN/Creatinine Ratio 11.9, Glucose 131 H, Calcium 9.0 Radiography Diagnostic Testing: Radiology Impression Chest X-Ray 01/08/23 17:30 IMPRESSION: Bilateral pneumonia. Electronically Signed: Jose Rafael Gipson MD at 17:46 EDT , Physical Exam Narrative General: Alert, oriented, no apparent distress HEENT: Atraumatic, normocephalic Eyes: Anicteric, normal conjunctiva, extraocular movements grossly intact, does have slight speech impediment Neck: Supple Respiratory: Normal respiratory effort, improving airflow Cardiovascular: Regular rate and rhythm GI: Slightly distended, status post surgery Extremities: No edema Musculoskeletal: Moving all extremities Neuro: No overt focal neurological deficits Skin: No rashes appreciated Psych: Cooperative Assessment & Plan Assessment/Plan (1) Hypoxia: PLAN: Plan #Acute hypoxia suspect secondary to pneumonia -Postop hypoxia with O2 sat going to 83% on room air and requiring 4 L to maintain sat of 93% -Exposed use inhalers at home, suspect component of COPD and noncompliance with inhalers contributing but no wheezing and do not feel he is in exacerbation -Chest x-ray with poor inspiration and increased markings, query as bilateral pneumonia -Given patient's history of increasing cough and sputum production will treat for CAP with low threshold to broaden coverage if needed, no reported history of aspirating -Also scheduled nebs -Sputum culture if able -Urine antigens -Incentive spirometry -Mucinex -Patient did not appear overloaded on exam however cannot rule out with his cardiomegaly and increased markings, BNP ordered -We will hold on fluids pending that result -01/09: BNP within normal limits, was taken off O2 and went to 88% on room air. When ambulated required O2, patient is a community ambulator and needs portable oxygen at discharge. Can continue antibiotics, Augmentin 875 twice daily for 5 days and azithromycin 500 daily for 3 days. Continue home inhalers. Okay to DC from medicine perspective #Status post elective inguinal hernia repair -Pain control -Management per primary #Tobacco use -Uses chew tobacco -Advise cessation -We will add as needed nicotine gum #DVT ppx: SCDs, will defer decision to start chemoprophylaxis to primary Delicia Davis MD Time spent in the patient's overall evaluation,decision-making process, review of diagnostic data, adjustment of management, discussion with other providers, nursing nursing and ancillary staff involved in patient's care documentation, 31 minutes Charges/Coding Visit Charges Inpatient E&M: 34284 Subs Hosp L2
--- NOTE | 2023-01-09 07:54 | PCM.PN.SRG ---
Subjective Subjective Patient notes he is feeling well and really wants to go home Objective Data Objective Data Vital Signs: Vital Signs Temp Pulse Resp BP Pulse Ox O2 Del Method O2 Flow Rate 97.9 F 94 18 150/87 H 93 Room Air 2 01/09/23 07:45 01/09/23 07:45 01/09/23 07:45 01/09/23 07:45 01/09/23 07:45 01/09/23 07:46 01/09/23 03:08 Oxygen Flow Rate (L/min) 2 Oxygen Delivery Method Room Air Weight: 213 lb 10.047 oz Body Mass Index (BMI) 32.4 Intake & Output: Intake and Output for Last 24 Hours 01/07/23 01/08/23 01/09/23 23:59 23:59 23:59 Intake Total 1488.5 / 1488.5 Output Total 250 / 250 100 / 100 Balance 1238.5 / 1238.5 -100 / -100 Lab / Micro Data Result Diagrams: 01/09/23 06:00 01/09/23 06:00 Labs: Laboratory Results - last 24 hr 01/08/23 18:50: WBC 10.4, RBC 4.56 L, Hgb 15.1, Hct 46.6, MCV 102.2 H, MCH 33.1 H, MCHC 32.4, RDW Std Deviation 49.7 H, RDW Coeff of Petrona 13.1, Plt Count 242, MPV 9.1, Immature Gran % (Auto) 0.300, Neut % (Auto) 96.1 H, Lymph % (Auto) 2.3 L, [place] % (Auto) 0.9, Eos % (Auto) 0.2, Baso % (Auto) 0.2, Absolute Neuts (auto) 10.0 H, Absolute Lymphs (auto) 0.24 L, Nucleated RBC % 0, Differential Comment SEE COMMENT, Platelet Estimate ADEQUATE, RBC Morphology N CHROM, Anisocytosis 1+, Macrocytosis 1+ 01/08/23 18:50: Sodium 137, Potassium 4.0, Chloride 108 H, Carbon Dioxide 27.0, Anion Gap 2 L, BUN 12, Creatinine 1.03, Estim Creat Clear Calc 69.17, Est GFR (MDRD) Af Amer 93, Est GFR (MDRD) Non-Af 77, BUN/Creatinine Ratio 11.7, Glucose 150 H, Calcium 8.6, Total Bilirubin 0.40, AST 18, ALT 23, Alkaline Phosphatase 64, Total Protein 7.4, Albumin 3.5, Globulin 3.9, Albumin/Globulin Ratio 0.9, Folate 14.50 01/08/23 18:50: Vitamin B12 268 01/08/23 18:50: B-Natriuretic Peptide 21.4 01/09/23 06:00: WBC 11.6 H, RBC 4.57 L, Hgb 14.8, Hct 46.9, MCV 102.6 H, MCH 32.4 H, MCHC 31.6 L, RDW Std Deviation 48.9 H, RDW Coeff of [place]ron[place] 12.9, Plt Count 281, MPV 9.3, Immature Gran % (Auto) 0.700, Neut % (Auto) 91.0 H, Lymph % (Auto) 4.0 L, [place] % (Auto) 4.2, Eos % (Auto) 0.0, Baso % (Auto) 0.1, Absolute Neuts (auto) 10.6 H, Absolute Lymphs (auto) 0.46 L, Nucleated RBC % 0, Differential Comment COMMENT 01/09/23 06:00: Sodium 139, Potassium 4.3, Chloride 106, Carbon Dioxide 28.0, Anion Gap 5, BUN 12, Creatinine 1.01, Estim Creat Clear Calc 70.54, Est GFR (MDRD) Af Amer 95, Est GFR (MDRD) Non-Af 79, BUN/Creatinine Ratio 11.9, Glucose 131 H, Calcium 9.0 Micro: Microbiology 01/09/23 07:00 Urine, Clean Catch Legionella Antigen - Final 01/09/23 07:00 Urine, Clean Catch Streptococcus pneumoniae Antigen (M - Final Radiography Diagnostic Testing: Radiology Impression Chest X-Ray 01/08/23 17:30 IMPRESSION: Bilateral pneumonia. Electronically Signed: Jose Rafael Gipson MD at 17:46 EDT , Physical Exam Const no apparent distress Resp normal respiratory effort GI soft to palpation and non-tender Assessment & Plan Assessment/Plan (1) Left inguinal hernia: (2) Hypoxia: PLAN: Plan Patient was admitted for hypoxia last night. He is still only 87% on room air but he is satting well on 2 L. I will advance his diet and stopping IV fluids. Antibiotics for possible pneumonia. Hospitalist involved. Possible DC today although the patient did threaten to leave AMA this morning. Derrell Toribio MD Pager: [facility] [address] [place] [address], [address] [place] [address] Office:
[2023-01-09] MEDS: guaiFENesin 1,200 MG Tablet 1200 MG PO (09:14)
[2023-01-09] MEDS: Pantoprazole Sodium 40 MG Tablet PO (09:14)
[2023-01-09] MEDS: Metoprolol(XL)Succ 25 MG Tablet PO (09:14)
--- NOTE | 2023-01-09 09:40 | CASEMGMT ---
Addendum entered by Oralia Hood 01/09/23 12:01: Per physician pt is ready for discharge today. Discharge instructions faxed to [facility]. SW met with pt who called LEYLACandida Lexii and left message requesting she come pick him up. No further SW needs. DERRICK Bingham Original Note: Social Work SW met with pt and introduced self and role of SW. Pt confirms he currently lives at [facility]. Pt communicating with SW but very difficult to understand. NOK listed is Lexii Hare. Pt states she is from [facility] and permission given to call Lexii. VM left requesting return call. SW placed call to Paige at [facility] who states pt was moved from independent living to the assisted living on Sunday or Sunday and pt can return when medically ready. Plan: [facility], when medically ready DERRICK Bingham
--- NOTE | 2023-01-09 10:36 | EX.PCM.DISCH ---
Discharge Instructions Procedure Hernia Diet Discharge Diet: Light diet - advance as tolerated Activity Discharge Activity: May Not Drive (for 2-3 days or while taking narcotic pain meds.) and May Shower (with the bandage in place 1-2 days after surgery.) Lifting Restrictions: 20 pounds for 6 weeks. Additional Activity Instructions:: Climbing stairs is fine, walking is encouraged. Sitting in bed may be uncomfortable. Sitting up using your lateral muscles (sitting up sideways) is usually more comfortable. Do not drive, work heavy equipment of sign legal documents for 24 hours. If your hernia repair was an inguinal repair, you may have scrotal swelling, an ice pack and/or athletic support can provide more comfort. Pain medications may cause nausea, you should typically eat light foods as you take your pain medications. Pain medications may also cause constipation. If you have difficulty with this, discuss with your doctor. Please call if there is extreme testicular pain [phone] Dressing / Incision Call your doctor if your incision/area has: Continuous Slow Oozing, Sudden Increased Bleeding, Increased Pain/ Swelling, Increased Redness and Foul Smelling Discharge Call your doctor if you observe: Fever of 101 or Higher and Inability to urinate Suture Line Care: Avoid Pulling/Pushing and Avoid Pinching/Bending Remove Dressing in: 2 days (Remove clear bandages in 2 days, remove Steri-Strips in 7 to 10 days.) Follow Up Care Please Follow Up With: Derrell Toribio MD When: Please call to schedule 1 week follow up appointment. [phone] Test Results: Test results from this visit will be discussed in further detail at your follow-up appointment, if applicable. Discharge Plan Admission Admit Date/Time: 01/08/23 17:26 Attending Provider: Derrell Toribio [facility] Providers: Delicia Davis Discharge Orders/Prescriptions Prescriptions: New oxycodone 10 mg tablet 5 - 10 mg PO Q6H PRN (Reason: pain) 5 Days Qty: 20 0RF acetaminophen 325 mg Tablet 650 mg PO Q4H PRN PRN (Reason: P/F) Qty: 0 0RF amoxicillin-pot clavulanate 875-125 mg tablet 1 tab PO BID 5 Days Qty: 10 0RF azithromycin 500 mg tablet 500 mg PO DAILY 3 Days Qty: 3 0RF Continued ibuprofen 600 mg tablet 600 mg PO Q6H PRN PRN (Reason: pain) Qty: 20 0RF cetirizine 10 mg tablet 10 mg PO DAILY Label Comments: TAKE 1 TABLET BY MOUTH EVERY DAY metoprolol succinate 50 mg tablet extended release 24 hr 50 mg PO DAILY Label Comments: TAKE 1 TABLET BY MOUTH EVERY DAY amlodipine 10 mg tablet 10 mg PO DAILY Label Comments: TAKE 1 TABLET BY MOUTH EVERY DAY pantoprazole 40 mg tablet,delayed release (DR/EC) 40 mg PO DAILY Label Comments: TAKE 1 TABLET BY MOUTH EVERY DAY albuterol sulfate 90 mcg/actuation HFA aerosol inhaler 1 - 2 puff INHALATION PRN PRN (Reason: Wheezing) Label Comments: Inhale 2 inhalations every 4-6 hours as needed for shortness of breath/cough [facility]Primary Care Provider[facility] - Disposition Disposition (needs filled in before D/C Order can be placed): Home, Self Care
--- NOTE | 2023-01-09 10:55 | CASEMGMT ---
NANCI CM into pt room as pt qualifies for oxygen with exertion. Veronique MCMAHAN present in room, discussed homegoing oxygen instructions, pt verbalized understanding. Pt states he does not have a pox but is able to afford it and Lexii or Leta from [employer] will help him get one. Provided pt with a verbal local in network list of [employer] companies, pt chose [employer]. Referral sent to [employer] via careport at this time. Pt very anxious to leave and denies further needs.
--- NOTE | 2023-01-09 11:27 | PHA.DC.MC ---
Pharmacy Service has performed discharge medication reconciliation and counseling for this patient. 1. AZITHROMYCIN 500MG PO DAILY X 3 DAYS 2. AUGMENTIN 875MG 1T PO BID X 5 DAYS 3. OXYCODONE 5-10MG PO Q6H PRN PAIN The patient's discharge medication list was reviewed for discrepancies and discrepancies were resolved. Home Medications ibuprofen 600 mg tablet 600 mg PO Q6H PRN PRN pain #20 TABLETS 10/05/22 albuterol sulfate 90 mcg/actuation aerosol inhaler 1 - 2 puff inhalation PRN PRN Wheezing 12/29/22 amlodipine 10 mg tablet 10 mg PO DAILY 12/29/22 cetirizine 10 mg tablet 10 mg PO DAILY 12/29/22 metoprolol succinate 50 mg tablet,extended release 24 hr 50 mg PO DAILY 12/29/22 pantoprazole 40 mg tablet,delayed release 40 mg PO DAILY 12/29/22 oxycodone 10 mg tablet 5 - 10 mg PO Q6H PRN pain 5 days #20 tabs 01/08/23 acetaminophen 325 mg tablet 650 mg PO Q4H PRN PRN P/F #0 tabs 01/09/23 amoxicillin 875 mg-potassium clavulanate 125 mg tablet 1 tab PO BID 5 days #10 tabs 01/09/23 azithromycin 500 mg tablet 500 mg PO DAILY 3 days #3 tabs 01/09/23 The patient was counseled on the following discharge medications and changes in medications for homegoing were reviewed. The Reason for Use, instructions for use, and potential side effects were reviewed for all new medications. The patient's questions regarding all of their medications were answered. The patient was able to verbally demonstrate an understanding of their discharge medications. Patient counseled by pharmacy services representativeMark.
== END 2023-01-09 12:55 | disposition home or self-care (01) ==
LOC: MS3 17:26 → SDC 17:57 → MS3 17:57
PROVIDERS: Anesthesiology; Internal Medicine; Admitting Provider Surgery; Referring Provider Surgery; Visit Provider Surgery
PROC: 0YQ64ZZ Repair Left Inguinal Region, Percutaneous Endoscopic Approach (ICD-10-PCS; CPT 49650; principal; 2023-01-08 13:10)
DX: K40.30 Unilateral inguinal hernia, with obstruction, without gangrene, not specified as recurrent (principal); I10 Essential (primary) hypertension; F17.220 Nicotine dependence, chewing tobacco, uncomplicated; R09.02 Hypoxemia; D17.6 Benign lipomatous neoplasm of spermatic cord; K21.9 Gastro-esophageal reflux disease without esophagitis; I25.2 Old myocardial infarction; Z79.899 Other long term (current) drug therapy; R06.02 Shortness of breath
CPT/HCPCS: 49650; S2900; 00830; 36415; 71046; 80048; 80053; 82607; 82746; 83880; 85025; 85027; 87449; 88302; 88304; 93005; 94640; 94668; 96365; 96366; 96367; 99221; 99252; J7120; G0378; G0463; J0696; J2405

== ENCOUNTER 2023-04-26 09:35 | Emergency (ER) | payer MEDICARE, MEDICAID, SELFPAY ==
[2023-04-26] VITALS (8 sets, daily range): BP systolic 140–159; BP diastolic 79–87; PULSE 61–83; RESP 14–27; TEMP 36.7; O2SAT 92–96; BMI 36.3
--- NOTE | 2023-04-26 09:44 | ED.VIS.DYS ---
HPI History of Present Illness Chief Complaint: Shortness of Breath PFSH PFS Medical History Alcohol use Back pain Chews tobacco Gastric reflux Heart murmur History of heart attack Hoarseness HTN (hypertension) Mental disability Seasonal allergies Speech abnormality Home Medications ibuprofen 600 mg tablet 600 mg PO Q6H PRN PRN pain #20 TABLETS 10/05/22 [Rx Last Taken Unknown] albuterol sulfate 90 mcg/actuation aerosol inhaler 1 - 2 puff inhalation PRN PRN Wheezing 12/29/22 [History Last Taken Unknown] amlodipine 10 mg tablet 10 mg PO DAILY 12/29/22 [History Last Taken 01/08/23] cetirizine 10 mg tablet 10 mg PO DAILY 12/29/22 [History Last Taken Unknown] metoprolol succinate 50 mg tablet,extended release 24 hr 50 mg PO DAILY 12/29/22 [History Last Taken 01/08/23] pantoprazole 40 mg tablet,delayed release 40 mg PO DAILY 12/29/22 [History Last Taken 01/08/23] acetaminophen 325 mg tablet 650 mg (2 x 325 mg) PO Q4H PRN PRN P/F #0 tabs 01/09/23 [Rx Last Taken Unknown] furosemide 20 mg tablet (Lasix) 20 mg PO DAILY #14 tabs 04/26/23 [Rx Last Taken Unknown] ipratropium 20 mcg-albuterol 100 mcg/actuation mist for inhalation 1 puff inhalation Q4H PRN shortness of breath or wheezing 14 days #4 grams 04/26/23 [Rx Last Taken Unknown] prednisone 20 mg tablet 20 mg PO DAILY #5 tabs 04/26/23 [Rx Last Taken Unknown] Allergy/AdvReac Type Severity Reaction Status Date / Time bee venom protein (honey bee) Allergy Anaphylaxis Verified 04/26/23 09:37 mushroom Allergy swollen Verified 04/26/23 09:37 Social History Smoking Status: Former smoker quit date: 09/09/75 pack-years: 5 substance use type: does not use EXAM Physical Exam Const Vital Signs: 04/26/23 09:37 04/26/23 09:49 04/26/23 09:49 Temperature 98.0 F Temperature Source Temporal Pulse Rate 76 Respiratory Rate 16 Respiratory Effort Short of Breath Labored Respiratory Pattern Blood Pressure 159/79 H Blood Pressure Mean 105 Pulse Ox 95 94 Oxygen Delivery Method Room Air Room Air Room Air 04/26/23 10:38 04/26/23 10:54 04/26/23 10:55 Temperature Temperature Source Pulse Rate 61 70 Respiratory Rate 16 14 Respiratory Effort Respiratory Pattern Normal Blood Pressure 140/87 H Blood Pressure Mean 104 Pulse Ox 94 94 Oxygen Delivery Method Room Air Room Air 04/26/23 11:09 04/26/23 12:09 04/26/23 12:09 Temperature Temperature Source Pulse Rate 83 76 76 Respiratory Rate 23 H 27 H Respiratory Effort Respiratory Pattern Blood Pressure 140/87 H 143/79 H 143/79 H Blood Pressure Mean 104 100 Pulse Ox 94 92 Oxygen Delivery Method Room Air MDM MDM MDM Narrative Medical decision making narrative: HISTORY OF PRESENT ILLNESS: 67-year-old male here with shortness of breath, bilateral lower extremity edema. He states he has been having progressive lower extremity edema and problems with breathing since his surgery in January. No recent surgeries reported. The patient denies recent surgery in the last 4 weeks or immobilization in the last 3 days, denies previous diagnosis of DVT or PE, hemoptysis, unilateral leg swelling or malignancy with treatment the last 6 months or palliative. No estrogen use noted. He denies chest pain. He notes a cough dyspnea, white sputum. Denies any fever. Denies any sick contacts. REVIEW OF SYSTEMS: Pertinent positives: Shortness of breath, bilateral lower extremity edema Pertinent negatives: Syncope, chest pain PHYSICAL EXAM: Nursing triage notes reviewed, Vital signs reviewed Constitutional: please see mdm HENT: MMM Eyes: Pupils equal round and reactive to light, Extraocular muscles intact Neck: No stridor, no JVD, full neck ROM Lungs: Diminished breath sounds throughout, bilateral wheezing noted worse in the lung bases. Mild increased work of breathing but no conversational dyspnea or respiratory distress noted. Heart: Regular rate and rhythm, No murmurs, No rubs and No gallops, 2+ distal pulses (radial, femoral, posterior tibial) in all extremities Abdomen: Soft, there is no tenderness, rigidity, rebound or guarding, no obvious peritoneal signs, no palpable pulsatile abdominal masses, no auscultated abdominal bruit : No CVAT Extremities: 2+ pitting edema bilateral lower extremities Neuro: No focal neurological deficits, cranial nerves II through XII intact, 5/5 strength in all extremities. Intact sensation to light touch in all extremities, 2+ reflexes bilateral patella tendons. Normal gait. No ataxia. Skin: No rash or lesions noted MEDICAL DECISION MAKING: Chief Complaint: Shortness of breath, lower extremity edema External records reviewed: No recent echocardiograms noted in the chart. Imaging reviewed: Chest x-ray from January 2023 shows bilateral infiltrates versus atelectasis as well as right pleural thickening Factors affecting care: n hypertension, emphysema Social determinants of health: 5-year pack smoking history History obtained from others: Patient's patient account representative Consults: none MDM Narrative: Patient was initially hemodynamically stable, afebrile, nontoxic-appearing. Pulmonary exam consistent with wheezing clinically. Patient appears volume overloaded consistent with CHF. There is a possibility given wheezing is also COPD exacerbation given report of emphysema on prior imaging studies. I considered the following differential diagnosis: CHF exacerbation, COPD exacerbation, pneumonia, COVID-19/flu, ACS, arrhythmia, anemia, pulmonary embolism. I Considered pulmonary embolism but thought this diagnosis was less likely given low risk Wells score and lack of right heart strain on EKG. There is medication for CTA or D-dimer at this time given focal lung findings and more compelling diagnosis of CHF or COPD. EKG with normal sinus rhythm, normal axis, normal intervals, no STEMI, no signs of right heart strain VBG without evidence of CO2 retention to suggest severe COPD exacerbation Troponin is negative, no evidence of myocardial ischemia BNP within normal limits suggestive no increased ventricular myocyte stretch CBC without leukocytosis, severe anemia, no thrombocytopenia. COVID/flu negative I have personally reviewed the patient's chest x-ray. Chest x-ray is unremarkable for pulmonary edema, pneumothorax, pneumonia or focal cardiopulmonary abnormality. I obtained a broad lab and imaging work-up to further elucidate the etiology of the patient's complaints. Initial EKG was nonacute non-arrhythmogenic nonischemic. No signs of right heart strain. There is no significant anemia. No significant electrolyte abnormalities. Troponin negative. BNP negative. COVID and flu is negative. VBG without evidence of CO2 retention. Chest x-ray without evidence of pneumonia or volume overload. No clear life-limiting etiology could be identified to explain the patient's symptomatology. Did give DuoNeb breathing treatment and performed ambulatory pulse ox. Patient ambulated without significant hypoxia. [place] marginally better after breathing treatment. Patient has home oxygen. He was given a prescription for oral Lasix to start diuresis, prednisone for anti-inflammatory effect and inhaler for symptomatic control. I suspect the patient is suffering from a COPD exacerbation. He is to follow-up with his primary care physician at the next available appointment for further evaluation. Notification for admission at this time. The patient and/or family, caregivers express understanding. The patient and/or family, caregivers agrees with the plan. Shared decision making: I will have a discussion with the patient and or visitors regarding risk/benefits of further testing or admission. They will be made aware of of the risk/benefits inherent in this decision they will be given the opportunity to voice understanding. Total critical care time today provided was at least 0 minutes. This excludes separately billable procedures. Critical care time (if documented) is secondary to the patient having high probability of clinically significant/life threatening deterioration in the patient's condition which required my urgent intervention. Impression: 1. Dyspnea 2. Lower extremity edema 3. COPD exacerbation Dispo: Discharge Lab Data Attestation: I reviewed the patient's lab results. Labs: Laboratory Results - last 24 hr 04/26/23 10:00 WBC 5.8 RBC 3.98 L Hgb 13.2 Hct 41.0 MCV 103.0 H MCH 33.2 H MCHC 32.2 RDW Std Deviation 49.4 H RDW Coeff of [place] 12.9 Plt Count 281 MPV 8.8 Immature Gran % (Auto) 0.300 Neut % (Auto) 65.0 Lymph % (Auto) 9.9 L [place] % (Auto) 11.8 H Eos % (Auto) 12.1 H Baso % (Auto) 0.9 Absolute Neuts (auto) 3.8 Absolute Lymphs (auto) 0.57 L Nucleated RBC % 0 Differential Comment COMMENT Sodium 138 Potassium 4.1 Chloride 106 Carbon Dioxide 29.0 Anion Gap 3 L BUN 12 Creatinine 1.07 Estim Creat Clear Calc 66.59 Est GFR (MDRD) Af Amer 89 Est GFR (MDRD) Non-Af 74 BUN/Creatinine Ratio 11.2 Glucose 118 H Calcium 9.0 Troponin I High Sens 5 B-Natriuretic Peptide 21.2 ABG Data ABG results: ABG 04/26/23 10:50 Specimen Type BOGDAN Sample Site Not entered O2 % 21.0 VBG pH 7.35 VBG pO2 39 VBG HCO3 28 H VBG Total CO2 30 VBG O2 Sat (Calc) 70 VBG Base Excess 2 POC Mix VBG pCO2 Pt Tmp 51.5 H O2 Delivery Device Not entered Radiography Chest X-Ray - ED: Read by ED Physician Diagnostic Testing: Clinical Impression(s) from Imaging Studies Chest X-Ray 04/26/23 10:15 IMPRESSION: Elevation of the right hemidiaphragm. The lungs are clear. Electronically Signed: Edgar Altman MD at 10:31 EDT , Discharge Plan Triage Chief Complaint: Shortness of Breath ED Provider: Rex Urbano Dx/Rx/DC Orders Instructions: ED Dyspnea Prescriptions: New furosemide [Lasix] 20 mg tablet 20 mg PO DAILY Qty: 14 0RF prednisone 20 mg tablet 20 mg PO DAILY Qty: 5 0RF ipratropium-albuterol 20-100 mcg/actuation mist 1 puff inhalation Q4H PRN (Reason: shortness of breath or wheezing) 14 Days Qty: 4 0RF No Action ibuprofen 600 mg tablet 600 mg PO Q6H PRN PRN (Reason: pain) Qty: 20 0RF cetirizine 10 mg tablet 10 mg PO DAILY Patient Comments: TAKE 1 TABLET BY MOUTH EVERY DAY metoprolol succinate 50 mg tablet extended release 24 hr 50 mg PO DAILY Patient Comments: TAKE 1 TABLET BY MOUTH EVERY DAY amlodipine 10 mg tablet 10 mg PO DAILY Patient Comments: TAKE 1 TABLET BY MOUTH EVERY DAY pantoprazole 40 mg tablet,delayed release (DR/EC) 40 mg PO DAILY Patient Comments: TAKE 1 TABLET BY MOUTH EVERY DAY albuterol sulfate 90 mcg/actuation HFA aerosol inhaler 1 - 2 puff INHALATION PRN PRN (Reason: Wheezing) Patient Comments: Inhale 2 inhalations every 4-6 hours as needed for shortness of breath/cough acetaminophen 325 mg Tablet 650 mg PO Q4H PRN PRN (Reason: P/F) Qty: 0 0RF Primary Care Provider: Priti Pak Referrals: Priti Pak [Primary Care Provider] - Activity Restrictions/Additional Instructions: Thank you for trusting us with your care today! Please take Tylenol (2 pills, 650 mg), ibuprofen (2 pills, 400 mg) every 6 hours as needed for pain and fever control. Please begin taking Lasix daily to alleviate swelling in your lower extremities. Please take prednisone for next 5 days to decrease inflammation in your lungs. Please use prescribed inhaler as needed for shortness of breath Please use your home oxygen as needed. Please return to the emergency department if your symptoms change or worsen. Specifically for shortness of breath worsens. Specific if develop loss of consciousness, chest pain. Please follow with your primary care physician for further outpatient evaluation and management. Disposition Disposition: Home, Self Care Discharge Date/Time: 04/26/23 12:10
--- NOTE | 2023-04-26 09:46 | EKG12_ITS ---
Test Reason : SOB Blood Pressure : / mmHG Vent. Rate : 071 BPM Atrial Rate : 071 BPM P-R Int : 162 ms QRS Dur : 066 ms QT Int : 368 ms P-R-T Axes : 036 -13 034 degrees QTc Int : 399 ms Normal sinus rhythm Inferior infarct (cited on or before 14-APR-2020) Abnormal ECG Confirmed by JOSE MARTIN SKELTON, RUBEN ([id number]), newspaper photo editor JODY PINO ([id number]) on 05/01/2023 11:25:27 AM Referred By: Confirmed By:OSIEL PHILIPPE MD
--- NOTE | 2023-04-26 09:51 | ED.RN ---
pitting edema to ble.
[2023-04-26 10:09] LABS: Absolute Lymphocyte Count 0.57 X10^3/uL (0.83-4.51); Absolute Neutrophil Count 3.8 X10^3/uL (2.0-7.7); Basophil# 0.05 X10^3/uL; Basophil% 0.9 % (0-1); Eosinophils% 12.1 % (0-5); Hemoglobin 13.2 g/dL (13.0-16.5); Lymphocyte # 0.57 X10^3/ul (0.83-4.51); Lymphocyte % 9.9 % (19-41); Mean Corp Hgb Conc 32.2 g/dL (32-36); Mean Corpuscular Hgb 33.2 pg (27.0-32.0); Mean Platelet Vol. 8.8 fl (6.2-12.0); Monocyte# 0.68 X10^3/uL; Monocyte% 11.8 % (0-10); NRBC Flagged by Analyzer 0 % (0-5); Neutrophil # 3.76 X10^3/uL (2.7-7.7); POSITIVE DIFFERENTIAL YES; Platelet Count 281 K/mm3 (150-450); RBC Distribution Width CV 12.9 % (11.6-14.6); RBC Distribution Width SD 49.4 fl (35.1-43.9); Red Blood Count 3.98 M/mm3 (4.6-6.2); White Blood Count 5.8 K/mm3 (4.4-11.0)
[2023-04-26 10:10] LABS: Differential Indicated SCAN CRITERIA MET
--- NOTE | 2023-04-26 10:15 | RAD_ITS ---
STUDY: X-RAY CHEST REASON FOR EXAM: Male, 67 years old. SOB TECHNIQUE: Single AP portable view of the chest. COMPARISON: Comparison is made with prior study January 08, 2023. FINDINGS: EKG electrodes are seen. Elevation of the right hemidiaphragm. The lungs are clear. There is no demonstrated pleural abnormality. Normal size heart. Normal mediastinum and saturnino. Normal visualized pulmonary arteries. Normal visualized aortic arch and descending thoracic aorta. Normal visualized thoracic spine. Normal visualized ribs, clavicles, and shoulders. There is no demonstrated abnormality of the visualized soft tissue structures of the upper abdomen. RAD/Chest 1 View (Portable) IMPRESSION: Elevation of the right hemidiaphragm. The lungs are clear. Electronically Signed: Edgar Altman MD at 10:31 EDT ,
[2023-04-26 10:23] LABS: BNP,B-Type NATRIURETIC PEPTIDE 21.2 pg/mL (0-100)
[2023-04-26 10:26] LABS: Anion Gap 3 (5-15); BUN 12 mg/dL (7-18); BUN/Creat Ratio 11.2 RATIO (10-20); Chloride 106 mmol/L (98-107); Creatinine, Serum 1.07 mg/dL (0.70-1.30); EST Glomerular Filtration Rate 74 mL/min (>60); Est Glom Filt Rate - Afr Amer 89 mL/min (>60); Estimated Creatinine Clearance 66.59 ml/min; Glucose 118 mg/dL (74-106); Potassium 4.1 mmol/L (3.5-5.1); Sodium Level 138 mmol/L (136-145); Troponin-I HS 5 pg/mL (3.0-78.0)
[2023-04-26] MEDS: Ipratropium/Albuterol Sulfate 3 ML AMPUL.NEB INHALATION (10:35)
--- NOTE | 2023-04-26 10:38 | CPS ---
Pt has a wheeze in the upper airway but lungs are diminished
[2023-04-26 10:55] LABS: Blood Gas Specimen Type VEN; O2 Delivery Device Not entered; SITE Not entered; VBG BASE EXCESS 2 mmol/L (-1.0-3.5); VBG Bicarbonate 28 mmol/L (22-26); VBG PO2 39 mmHg (25-40); VBG SO2 70 % (50-70); VBG TCO2 30 mmol/L (23-33); VBG pCO2 51.5 mmHg (41-51); VBG pH 7.35 (7.32-7.42)
== END 2023-04-26 12:10 | disposition home or self-care (01) ==
PROVIDERS: Emergency Provider Emergency Medicine; Visit Provider Emergency Medicine
DX: R60.0 Localized edema (principal); J44.1 Chronic obstructive pulmonary disease with (acute) exacerbation; F17.220 Nicotine dependence, chewing tobacco, uncomplicated; I10 Essential (primary) hypertension; R06.00 Dyspnea, unspecified; K21.9 Gastro-esophageal reflux disease without esophagitis; Z79.899 Other long term (current) drug therapy
CPT/HCPCS: 71045; 80048; 82803; 83880; 84484; 85025; 87428; 93005; 94640; 99284; A4216

== ENCOUNTER → 2023-05-03 | Outpatient (CLI) | payer MEDICARE, MEDICAID, SELFPAY ==
[2023-05-03 11:35] VITALS: PULSE 72; PULSE 80; PULSE 85; PULSE 88; PULSE 95; PULSE 96; PULSE 98; O2SAT 93; O2SAT 94; O2SAT 95; O2SAT 97
--- NOTE | 2023-05-04 05:57 | WT_ITS ---
PSN 6 Minute Walk Test 6 Minute Walk Test 6 Minute Walk Test: 6 Minute Walk Test PSN:6-Minute Walk Test Start: 05/03/23 11:35 Freq: Status: Active Protocol: RESP.6MINW Document 05/03/23 11:35 [facility] (Rec: 05/03/23 11:38 [facility] [id number]) 6 Minute Walk Test Date Performed 05/03/23 Time Performed 11:15 Height 5 ft 8 in Weight: 96.162 kg Weight in Pounds 212.[address]: Dr Corado Assistive device used: Walker Pre-test Oxygen Delivery Method Room Air Pulse Ox 95 Pulse Rate (60-100) 72 Dyspnea Ioana Scale (0-10) 0 Exertion Ioana Scale (6-20) 6 1st minute Oxygen Delivery Method Room Air Pulse Ox 97 Pulse Rate (60-100) 85 2nd minute Oxygen Delivery Method Room Air Pulse Ox 97 Pulse Rate (60-100) 98 3rd minute Oxygen Delivery Method Room Air Pulse Ox 94 Pulse Rate (60-100) 88 4th minute Oxygen Delivery Method Room Air Pulse Ox 93 Pulse Rate (60-100) 95 5th minute Oxygen Delivery Method Room Air Pulse Ox 93 Pulse Rate (60-100) 96 6th minute Oxygen Delivery Method Room Air Pulse Ox 93 Pulse Rate (60-100) 96 Dyspnea Ioana Scale (0-10) 0 Exertion Ioana Scale (6-20) 12 Post-test Oxygen Delivery Method Room Air Pulse Ox 95 Pulse Rate (60-100) 80 Full Laps Walked 12 Partial Lap, Number of Tiles Walked 25 Total Distance Walked (ft) 733 Interpretation Interpretation: The patient was able to ambulate 733 feet over the course of 6 minutes on room air with the assistance of a walker and no breaks. The patient experienced no significant tachycardia or desaturation during testing with an oxygen faustino of 93%. These findings are consistent with a musculoskeletal limitation exercise tolerance. Recommendations Recommendations: No supplemental oxygen is indicated at this time, but could consider repeating if musculoskeletal status improves.
== END | disposition home or self-care (01) ==
LOC: PSN 11:06
PROVIDERS: Referring Provider Internal Medicine Critical Care Medicine; Visit Provider Internal Medicine Critical Care Medicine
DX: R09.02 Hypoxemia (principal)
CPT/HCPCS: 94618

== ENCOUNTER → 2023-05-24 | Outpatient (CLI) | payer MEDICARE, MEDICAID, SELFPAY ==
--- NOTE | 2023-05-24 13:55 | RAD_ITS ---
STUDY: X-RAY CHEST REASON FOR EXAM: Male, 67 years old. Tightness with history of rib fracture TECHNIQUE: PA and lateral COMPARISON: April 26, 2023 FINDINGS: Elevated right hemidiaphragm and mild basilar atelectasis. Tiny calcified granuloma in the right upper and lower lobes There is no demonstrated pleural abnormality. Normal size heart. Normal mediastinum and saturnino. Normal visualized pulmonary arteries. Normal visualized aortic arch and descending thoracic aorta. Normal visualized thoracic spine. Normal visualized clavicles, and shoulders. Deformity of the right lateral chest wall which may be consistent with old healed rib fractures There is no demonstrated abnormality of the visualized soft tissue structures of the upper abdomen. RAD/Chest PA and Lateral IMPRESSION: Elevated right hemidiaphragm and mild basilar atelectasis. No acute disease. Electronically Signed: Yonathan Dumont MD at 18:31 EDT ,
== END | disposition home or self-care (01) ==
PROVIDERS: Referring Provider Internal Medicine Critical Care Medicine; Visit Provider Internal Medicine Critical Care Medicine
DX: S22.49XA Multiple fractures of ribs, unspecified side, initial encounter for closed fracture (principal); R06.00 Dyspnea, unspecified
CPT/HCPCS: 71046

== ENCOUNTER → 2023-06-06 | Outpatient (CLI) | payer MEDICAID, MEDICARE, SELFPAY ==
[2023-06-06 13:27] LABS: BNP,B-Type NATRIURETIC PEPTIDE 12.5 pg/mL (0-100)
== END | disposition home or self-care (01) ==
LOC: LAB 11:53
PROVIDERS: Referring Provider Internal Medicine Cardiovascular Disease; Visit Provider Internal Medicine Cardiovascular Disease
DX: R06.09 Other forms of dyspnea (principal); R60.0 Localized edema; I10 Essential (primary) hypertension; G47.10 Hypersomnia, unspecified
CPT/HCPCS: 36415; 83880; 84443

== ENCOUNTER 2023-06-12 08:12 | Emergency (ER) | payer MEDICARE, MEDICAID, SELFPAY ==
[2023-06-12] VITALS (7 sets, daily range): BP systolic 130–146; BP diastolic 72–85; PULSE 74–90; RESP 15–29; TEMP 36.3; O2SAT 94–98; BMI 30.8
--- NOTE | 2023-06-12 08:22 | EKG12_ITS ---
Test Reason : CHEST PAIN Blood Pressure : / mmHG Vent. Rate : 088 BPM Atrial Rate : 088 BPM P-R Int : 170 ms QRS Dur : 068 ms QT Int : 358 ms P-R-T Axes : 049 -12 035 degrees QTc Int : 433 ms Normal sinus rhythm Inferior infarct , age undetermined Abnormal ECG Confirmed by JOSE MARTIN SKELTON, RUBEN ([id number]), writer editor WILFRID RODRIGUEZ ([id number]) on 06/18/2023 10:15:17 AM Referred By: Confirmed By:OSIEL PHILIPPE MD
--- NOTE | 2023-06-12 08:22 | RAD_ITS ---
STUDY: X-RAY CHEST REASON FOR EXAM: Male, 67 years old. Left-sided chest pain. TECHNIQUE: Single AP portable view of the chest. COMPARISON: Comparison is made with prior study dated May 24, 2023. FINDINGS: EKG electrodes are seen. There is elevation of the right hemidiaphragm. There is no demonstrated pleural abnormality. There is moderate cardiac enlargement. Normal mediastinum and saturnino. Normal visualized pulmonary arteries. Normal visualized aortic arch and descending thoracic aorta. There are diffuse degenerative changes of the visualized thoracic spine. Normal visualized ribs, clavicles, and shoulders. There is no demonstrated abnormality of the visualized soft tissue structures of the upper abdomen. RAD/Chest 1 View (Portable) IMPRESSION: Elevation of the right hemidiaphragm. Cardiomegaly. Electronically Signed: Edgar Altman MD at 8:50 EST ,
--- NOTE | 2023-06-12 08:23 | ED.VIS.CHEST ---
HPI History of Present Illness Chief Complaint: Chest Pain Detail of Chief Complaint: Chest pain Informant: patient Narrative Narrative: Patient presents to the emergency department with complaint of chest pain that started around 2 AM. Patient states that it woke him from sleep. He describes a heaviness across his left chest. He denies nausea or vomiting or diaphoresis. No real radiation of the pain. Patient states the pain comes and goes and lasts anywhere from half an hour to 45 minutes. Called EMS this morning will bring him in for evaluation. Currently rates his pain about a 4 out of 10. He tells me he had a heart attack in his 20s but no stents or any type of intervention. Patient had a head cold 2 weeks ago. Patient denies recent travel or surgery. No history of PE or DVT. [facility] Medical History Alcohol use Back pain Chews tobacco COVID-19 Gastric reflux Heart murmur History of heart attack Hoarseness HTN (hypertension) Mental disability Rib fractures Seasonal allergies Speech abnormality Home Medications ibuprofen 600 mg tablet 600 mg PO Q6H PRN PRN pain #20 TABLETS 10/05/22 [Rx Last Taken Unknown] cetirizine 10 mg tablet 10 mg PO DAILY 12/29/22 [History Last Taken Unknown] pantoprazole 40 mg tablet,delayed release 40 mg PO DAILY 12/29/22 [History Last Taken 01/08/23] acetaminophen 325 mg tablet 650 mg (2 x 325 mg) PO Q4H PRN PRN P/F #0 tabs 01/09/23 [Rx Last Taken Unknown] ipratropium 20 mcg-albuterol 100 mcg/actuation mist for inhalation 1 puff inhalation Q4H PRN shortness of breath or wheezing 14 days #4 grams 04/26/23 [Rx Last Taken Unknown] guaifenesin 1,200 mg tablet, extended release 12 hr (Mucinex) 1,200 mg PO Q12H #60 tabs 05/24/23 [Rx Last Taken Unknown] albuterol sulfate 90 mcg/actuation aerosol inhaler 2 puff inhalation Q4H PRN Wheezing 05/31/23 [History Last Taken Unknown] lisinopril 20 mg tablet 20 mg PO DAILY 05/31/23 [History Last Taken Unknown] furosemide 40 mg tablet (Lasix) 40 mg PO DAILY #90 tabs 06/06/23 [Rx Last Taken Unknown] metoprolol succinate 100 mg tablet,extended release 24 hr 100 mg PO DAILY #90 tabs 06/06/23 [Rx Last Taken Unknown] montelukast 10 mg tablet 10 mg PO QHS 06/06/23 [History Last Taken Unknown] potassium chloride 20 mEq tablet,extended release 20 meq PO DAILY #90 tabs 06/06/23 [Rx Last Taken Unknown] tamsulosin 0.4 mg capsule 0.4 mg PO DAILY 06/06/23 [History Last Taken Unknown] Allergy/AdvReac Type Severity Reaction Status Date / Time grass pollen Allergy Intermediate Chest Verified 06/12/23 08:24 tightness bee venom protein (honey bee) Allergy Anaphylaxis Verified 06/12/23 08:24 mushroom Allergy swollen Verified 06/12/23 08:24 Family History (Updated 06/06/23 @ 10:41 by Fany Granda) Mother Heart disease Father Heart disease Surgical History Hx of tonsillectomy Social History (Updated 06/06/23 @ 10:40 by Fany Granda) Smoking Status: Former smoker quit date: 09/09/75 pack-years: 5 Smokeless tobacco user: chewing tobacco alcohol intake: current alcohol intake frequency: a few times a month substance use type: does not use caffeine: Yes ROS ROS ED Review of Systems ROS Unobtainable: other Constitutional Constitutional ED: Reports lethargy; Denies chills, fever(s), sweats or weight loss Eyes Eyes: Denies blurry vision, change in vision or diplopia ENT ENT ED: Denies rhinorrhea or sore throat Cardiovascular Cardiovascular: Reports chest pain; Denies orthopnea or racing heartbeat Respiratory/Chest Respiratory/Chest: Denies cough, dyspnea, dyspnea on exertion, orthopnea or sputum Gastrointestinal Gastrointestinal: Denies abdominal pain, diarrhea, nausea or vomiting Genitourinary Genitourinary ED: Denies dysuria, hematuria or urinary frequency Musculoskeletal Musculoskeletal: Denies arthralgias, back pain, myalgias or neck pain Integumentary Denies abscess, Abrasions or rash Neurologic Neurologic: Denies headache(s) or weakness Psychiatric Psychiatric: Denies anxiety, depression or suicidal thoughts Endocrine Endocrinology: Denies polydipsia, polyphagia or polyuria Hematologic/Lymphatic Hematologic/Lymphatic: Denies easy bleeding, easy bruising or lymphadenopathy Allergic/Immunologic Allergic/Immunologic ED: Denies mouth swelling, tongue swelling or urticaria EXAM Physical Exam Const Vital Signs: 06/12/23 08:14 06/12/23 08:19 06/12/23 08:19 Temperature 97.4 F L Temperature Source Oral Pulse Rate 90 89 Respiratory Rate 16 15 Respiratory Effort Normal Non-Labored Blood Pressure 135/75 H 135/75 H Blood Pressure Mean 95 95 Pulse Ox 94 95 Oxygen Delivery Method Room Air Room Air 06/12/23 08:24 06/12/23 09:46 06/12/23 10:23 Temperature Temperature Source Pulse Rate 75 74 Respiratory Rate 29 H 17 Respiratory Effort Blood Pressure 130/85 H 142/74 H Blood Pressure Mean 100 96 Pulse Ox 94 95 95 Oxygen Delivery Method Room Air Room Air Room Air 06/12/23 11:05 Temperature Temperature Source Pulse Rate 75 Respiratory Rate 15 Respiratory Effort Blood Pressure 146/74 H Blood Pressure Mean 98 Pulse Ox 94 Oxygen Delivery Method Room Air Positive well nourished and well developed General Appearance ED: well developed and NAD HEENT Reports TM's clear and moist mucous membranes normocephalic and atraumatic; Negative for trauma or tenderness Tympanic Membrane ED: Yes TM's clear Eyes PERRL and EOMs intact bilaterally General Eye ED: Negative for pale conjunctiva or scleral icterus Neck no lymphadenopathy, supple and no JVD General: Negative for tenderness Chest Wall inspection of chest normal and palpation of chest normal Chest: Negative for tenderness Resp normal respiratory effort and clear to auscultation bilaterally Effort and Inspection: Negative for respiratory distress or pain with movement Auscultation: Negative for rhonchi, wheezes or diminished lung sounds Cardio regular rate, regular rhythm, S1 normal heart sound, S2 normal heart sound and no murmurs Peripheral Pulses: pulses 2+ throughout GI normal to inspection, nondistended, normoactive bowel sounds, soft to palpation, non-tender, non-distended and no masses Back/Spine no CVA tenderness and no thoracic nor lumbar tenderness Extremity normal to inspection General Extremety ED: Negative for edema General Extremity: Negative for edema Neuro oriented x3, CN's II-XII intact bilaterally, no sensory deficits noted and gait normal Sensorium / Orientation: awake, alert, oriented to person, oriented to place and oriented to time Motor Exam: strength 5/5 throughout and strength abnormal Psych mental status grossly normal Skin no rashes or lesions noted and no wounds Heart Score History: Slightly/Non-Suspicious ECG: Normal Age: >/= 65 years Risk Factors: 1 or 2 Risk Factors Troponin: </= Normal Limit Score: 3 MDM MDM MDM Narrative Medical decision making narrative: Patient presents with vague chest discomfort since 2 AM. At times pain positional. Pains been intermittent. Patient had an IV line established on arrival and placed on nurse monitoring. In the differential would be acute coronary syndrome versus PE versus musculoskeletal chest pain. CBC with differential obtained showed a white count 7.1 with hemoglobin 15 and platelets of 276. Chemistries unremarkable. First troponin was normal at 6. Delta troponin also normal at 8. D-dimer was negative. Chest x-ray showed nothing acute. EKG on arrival showed sinus rhythm with a rate of 88 bpm with no acute ST segment changes. Patient has a heart score of 3. On repeat exam his chest discomfort is resolved and he feels well. Requesting to be discharged. I feel he can be safely discharged to home suspicion is low for acute coronary syndrome. Lab Data Attestation: I reviewed the patient's lab results. Labs: Laboratory Results - last 24 hr 06/12/23 06/12/23 08:05 10:21 WBC 7.1 RBC 4.71 Hgb 15.4 Hct 47.5 MCV 100.8 H MCH 32.7 H MCHC 32.4 RDW Std Deviation 45.5 H RDW Coeff of [place] 11.9 Plt Count 276 MPV 9.2 Immature Gran % (Auto) 0.300 Neut % (Auto) 51.7 Lymph % (Auto) 15.4 L [place] % (Auto) 11.8 H Eos % (Auto) 20.0 H Baso % (Auto) 0.8 Absolute Neuts (auto) 3.7 Absolute Lymphs (auto) 1.10 Nucleated RBC % 0 D-Dimer Quant (PE/DVT) 0.48 Sodium 137 Potassium 4.0 Chloride 104 Carbon Dioxide 29.0 Anion Gap 4 L BUN 14 Creatinine 0.95 Estim Creat Clear Calc 75.00 Est GFR (MDRD) Af Amer 102 Est GFR (MDRD) Non-Af 84 BUN/Creatinine Ratio 14.7 Glucose 85 Calcium 9.2 Troponin I High Sens 6 8 Radiography Diagnostic Testing: Clinical Impression(s) from Imaging Studies Chest X-Ray 06/12/23 08:22 IMPRESSION: Elevation of the right hemidiaphragm. Cardiomegaly. Electronically Signed: Edgar Altman MD at 8:50 EST , 1 view chest x-ray obtained interpreted by myself as no evidence of infiltrate or pneumothorax or acute disease process. Radiology was in agreement and they did note a an elevated right hemidiaphragm. Also noted was cardiomegaly. EKG Initial EKG: Attestation: I personally reviewed and interpreted this EKG as follows: Comments: Sinus rhythm with a ventricular rate of 88 bpm with no acute ST segment changes Prior EKG tracings: available for review Prior: Unchanged Discharge Plan Triage Chief Complaint: Chest Pain ED Provider: Ulisses Young Dx/Rx/DC Orders Clinical Impression: Chest pain Instructions: ED Chest Pain, Uncertain Cause Prescriptions: No Action guaifenesin [Mucinex] 1,200 mg tablet extended release 12hr 1,200 mg PO Q12H Qty: 60 7RF lisinopril 20 mg tablet 20 mg PO DAILY montelukast 10 mg tablet 10 mg PO QHS tamsulosin 0.4 mg capsule 0.4 mg PO DAILY furosemide [Lasix] 40 mg tablet 40 mg PO DAILY Qty: 90 3RF potassium chloride 20 mEq tablet extended release 20 meq PO DAILY Qty: 90 3RF metoprolol succinate 100 mg tablet extended release 24 hr 100 mg PO DAILY Qty: 90 3RF ibuprofen 600 mg tablet 600 mg PO Q6H PRN PRN (Reason: pain) Qty: 20 0RF cetirizine 10 mg tablet 10 mg PO DAILY Patient Comments: TAKE 1 TABLET BY MOUTH EVERY DAY pantoprazole 40 mg tablet,delayed release (DR/EC) 40 mg PO DAILY Patient Comments: TAKE 1 TABLET BY MOUTH EVERY DAY acetaminophen 325 mg Tablet 650 mg PO Q4H PRN PRN (Reason: P/F) Qty: 0 0RF albuterol sulfate 90 mcg/actuation HFA aerosol inhaler 2 puff INHALATION Q4H PRN (Reason: Wheezing) Patient Comments: Inhale 2 inhalations every 4-6 hours as needed for shortness of breath/cough ipratropium-albuterol 20-100 mcg/actuation mist 1 puff inhalation Q4H PRN (Reason: shortness of breath or wheezing) 14 Days Qty: 4 0RF Primary Care Provider: Medical Priti Littlejohn Referrals: [facility] Eron,Priti Ruiz [Primary Care Provider] - 3-5 Days Disposition Disposition: Home, Self Care
[2023-06-12 08:29] LABS: Absolute Neutrophil Count 3.7 X10^3/uL (2.0-7.7); Basophil# 0.06 X10^3/uL; Basophil% 0.8 % (0-1); Eosinophil# 1.43 X10^3/uL; Hematocrit 47.5 % (40-54); Hemoglobin 15.4 g/dL (13.0-16.5); Lymphocyte % 15.4 % (19-41); Mean Corp Hgb Conc 32.4 g/dL (32-36); Mean Corpuscular Hgb 32.7 pg (27.0-32.0); Mean Corpuscular Volume 100.8 fL (80-94); Mean Platelet Vol. 9.2 fl (6.2-12.0); Monocyte# 0.84 X10^3/uL; Monocyte% 11.8 % (0-10); NRBC Flagged by Analyzer 0 % (0-5); Neutrophil # 3.69 X10^3/uL (2.7-7.7); Neutrophil % 51.7 % (47-70); Platelet Count 276 K/mm3 (150-450); RBC Distribution Width CV 11.9 % (11.6-14.6); RBC Distribution Width SD 45.5 fl (35.1-43.9); Red Blood Count 4.71 M/mm3 (4.6-6.2); White Blood Count 7.1 K/mm3 (4.4-11.0)
[2023-06-12] MEDS: Aspirin 81 MG TAB.CHEW 324 MG PO (08:31)
[2023-06-12] MEDS: 0.9% Normal Saline (1000mL) 1,000 ML 150 ML IV (08:31)
[2023-06-12 08:47] LABS: Anion Gap 4 (5-15); BUN 14 mg/dL (7-18); BUN/Creat Ratio 14.7 RATIO (10-20); Calcium,Total 9.2 mg/dL (8.5-10.1); Chloride 104 mmol/L (98-107); Creatinine, Serum 0.95 mg/dL (0.70-1.30); EST Glomerular Filtration Rate 84 mL/min (>60); Est Glom Filt Rate - Afr Amer 102 mL/min (>60); Glucose 85 mg/dL (74-106); Sodium Level 137 mmol/L (136-145); Troponin-I HS (w/2H Reflex) 6 pg/mL (3.0-78.0)
[2023-06-12 08:55] LABS: D-Dimer Quantitative (DVT/PE) 0.48 FEU/ug/m (0.27-0.49)
[2023-06-12 10:27] LABS: Reflex Troponin-HS? (from REC) Y
[2023-06-12 10:52] LABS: Troponin-I HS 8 pg/mL (3.0-78.0)
--- NOTE | 2023-06-12 11:25 | ED.RN ---
THIS RN CALLED REPORT BACK TO [facility]. REPORT GIVEN TO NANCI HAYES AT 1125.
== END 2023-06-12 11:27 | disposition home or self-care (01) ==
PROVIDERS: Emergency Provider Emergency Medicine; Visit Provider Emergency Medicine
DX: R07.9 Chest pain, unspecified (principal); I10 Essential (primary) hypertension; J30.2 Other seasonal allergic rhinitis; K21.9 Gastro-esophageal reflux disease without esophagitis; Z79.899 Other long term (current) drug therapy; F17.220 Nicotine dependence, chewing tobacco, uncomplicated
CPT/HCPCS: 71045; 80048; 84484; 85025; 85379; 93005; 96360; 96361; 99285; J7030; A4216

== ENCOUNTER → 2023-07-11 | Outpatient (CLI) | payer MEDICARE, MEDICAID, SELFPAY ==
--- NOTE | 2023-07-11 07:10 | ECHOD_ITS ---
Reason For Study: HYPOXEMIA Procedure This was a 2D Doppler, Color Flow transthoracic echocardiogram. Exam performed in department. Left Ventricle Normal size and thickness. The left ventricular ejection fraction is 65 %. Stage 1 diastolic dysfunction. Right Ventricle Normal right ventricle. Atria The left atrium is mildly enlarged. Normal right atrium. Mitral Valve Trivial mitral valve insufficiency. Tricuspid Valve Trivial tricuspid valve insufficiency. Normal pulmonary artery pressure. Aortic Valve Mildly calcified aortic valve annulus. There is no aortic stenosis. No aortic valve insufficiency. Pulmonic Valve The pulmonic valve is not well visualized. Great Vessels Mildly dilated aortic root. Pericardium/Pleural No pericardial effusion. MMode/2D Measurements & Calculations LVIDd: 4.5 cm IVSd: 0.99 cm Ao root diam: 3.8 cm LVIDs: 3.4 cm LVPWd: 0.99 cm RVDd: 3.3 cm FS: 24.0 % LAV(MOD-bp): 33.5 ml LVAd ap4: 31.1 cm2 LVAd ap2: 22.8 cm2 LAV(MOD-bp) Indexed: 15.5 ml/m2 LVLd ap4: 8.8 cm LVLd ap2: 7.8 cm LAV(MOD-sp2): 33.6 ml EDV(MOD-sp4): 91.8 ml EDV(MOD-sp2): 57.3 ml LAV(MOD-sp4): 33.8 ml EDV(sp4-el): 93.1 ml EDV(sp2-el): 56.5 ml LVAs ap4: 17.4 cm2 LVAs ap2: 13.2 cm2 LVLs ap4: 6.9 cm LVLs ap2: 7.0 cm ESV(MOD-sp4): 38.7 ml ESV(MOD-sp2): 22.3 ml ESV(sp4-el): 37.0 ml ESV(sp2-el): 21.1 ml EF(MOD-sp4): 57.9 % EF(MOD-sp2): 61.1 % EF(sp4-el): 60.2 % SV(MOD-sp4): 53.2 ml SV(MOD-sp2): 35.0 ml SV(sp4-el): 56.1 ml LA dimension(2D): 4.2 cm LA A4 area: 13.9 cm2 RA A4 area: 11.8 cm2 TAPSE: 1.9 cm Time Measurements MV dec time: 0.28 sec Doppler Measurements & Calculations MV E max tera: 45.5 cm/sec Lat Peak E' Tera: 11.8 cm/sec Med Peak E' Tera: 6.2 cm/sec MV A max tera: 51.2 cm/sec E/E' lat: 3.8 E/E' med: 7.3 MV E/A: 0.89 MV V2 max: 74.1 cm/sec MV P1/2t max tera: 54.5 cm/sec Ao V2 max: 126.3 cm/sec MV max P.2 mmHg MV P1/2t: 94.0 msec Ao max P.4 mmHg MV V2 mean: 38.3 cm/sec MV dec slope: 169.7 cm/sec2 Ao V2 mean: 86.3 cm/sec MV mean P.67 mmHg Ao mean P.4 mmHg MV V2 VTI: 16.5 cm MVA(P1/2t): 2.3 cm2 Ao V2 VTI: 25.9 cm AV (velocity ratio): 0.93 LV V1 max: 103.8 cm/sec PA V2 max: 126.5 cm/sec TR max tera: 226.0 cm/sec LV V1 max P.3 mmHg PA V2 mean: 84.9 cm/sec TR max P.4 mmHg LV V1 mean P.1 mmHg LV V1 mean: 67.7 cm/sec LV V1 VTI: 24.1 cm ECHO/Echo Complete Interpretation Summary The left ventricular ejection fraction is 65 %. Stage 1 diastolic dysfunction. The left atrium is mildly enlarged. Mildly calcified aortic valve annulus. Mildly dilated aortic root. Ordering Physician: Kenton Couch Referring Physician: BRITTANI ROE [facility] Performed By: Berta Hardwick, RDCS, RVT
== END | disposition home or self-care (01) ==
PROVIDERS: Referring Provider Internal Medicine Cardiovascular Disease; Visit Provider Internal Medicine Cardiovascular Disease
DX: R06.09 Other forms of dyspnea (principal); R60.0 Localized edema; I10 Essential (primary) hypertension; R09.02 Hypoxemia
CPT/HCPCS: 78452; 93017; 93306; A9500; A4216; J2785

== ENCOUNTER → 2023-09-18 | Outpatient (CLI) | payer MEDICARE, MEDICAID, SELFPAY ==
--- OUTSIDE RECORDS SUMMARY | 2023-09-18 20:58 | XMS RPT_ITS | CCD ---
Author Name Unknown Address [address] [place] [address] Organization [facility] Care Team Providers Care Equipment Planner Name Role Phone CRUZ CONNER Unavailable Unavailable CRUZ CONNER Unavailable Unavailable Problems Problem Classification Problem Date Documented Da te Episodic/Chronic Other non-traumatic joint disorders (1 source) Pain in right knee; Translations: [Pain in right knee] Onset: 03-15-2017 Episodic Results Test Name Value Interpretation Reference Range Facil ity Encounters Encounter Date Encounter Type Care Provider Facility Start: 03-15-2017 End: 03-15-2017 Ambulatory CRUZ CONNER [facility] Summary Purpose Family History No Family History Records Found Advance Directives No Advanced Directives Records Found Additional Source Comments (unrecognized sect ion and content) No Status Records Found INFORMATION SOURCE (unrecogn ized section and content) FOR RECORDS PERTAINING TO PATIENTS WHO ARE OR HAVE BEEN ENROLLED IN A CHEMICAL DEPENDENCY/SUBSTANCEABUSE PROGRAM, SOME INFORMATION MAY BE OMITTED. This clinical summary was aggregated from multiple sources. Caution should be exercised in using it in the provision of clinical care. This summary normalizes information from multiple sources, and as a consequence, information in this document may materially change the coding, format and clinical context of patient data. In addition, data may be omitted in some cases. CLINICAL DECISIONS SHOULD BE BASED ON THE PRIMARY CLINICAL RECORDS. [employer] [facility]. provides no warranty or guarantee of the accuracy or completeness of information in this document.
== END | disposition home or self-care (01) ==
LOC: SL 20:09
PROVIDERS: Referring Provider Internal Medicine Critical Care Medicine; Visit Provider Internal Medicine Critical Care Medicine
DX: G47.10 Hypersomnia, unspecified (principal)
CPT/HCPCS: 95810

== ENCOUNTER 2025-01-14 09:00 | Outpatient (RCR) | payer MEDICARE, MEDICAID, SELFPAY ==
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
--- NOTE | 2025-05-05 08:59 | HP.PT.NRP ---
Patient Information Patient Information: KRISTY MERCER Jr. was seen in my office for initial evaluation on 12/08/24. The following Plan of Care was established for this patient: POC Established Initial Frequency: 2x /Week Initial Duration: 3 Months Anticipated Interventions Patient/Client Instruction: Educate patient on: Condition and Plan of Care For the Purpose of:: To decrease pain, To increase ROM, To improve nutrient delivery to tissue, To improve muscle performance and motor function, To improve ability to perform ADL's, To increase tolerance to activity/condition/position, To improve performance and independence with ADL's, To decrease level of supervision to perform tasks, To improve ability of physical actions for home/community/work/leisure, To improve gait and locomotor functions, To improve health of tissue, To decrease soft tissue restriction, To increase flexibility/ROM and To improve balance Therapeutic Exercise to Include: Strength training, Endurance training, Body mechanics, Postural training, Flexibilty training, Gait and locomotor training, Neuromotor development, Passive ROM, Active ROM, Dynamic Lumbar Stabilization and Scapular Strength/Stabilization For the Purpose of:: To decrease pain, To increase ROM, To improve muscle performance and motor function, To improve ability to perform ADL's, To increase tolerance to activity/condition/position, To improve performance and independence with ADL's, To improve ability of physical actions for home/community/work/leisure, To improve gait and locomotor functions, To improve health of tissue, To decrease soft tissue restriction, To increase flexibility/ROM, To improve endurance and To improve safety with gait Functional Training to Include: Gait training For the Purpose of:: To improve gait and locomotor functions and To improve safety with gait Manual Therapy Techniques to Include: Passive ROM For the Purpose of:: To decrease pain, To increase ROM, To improve nutrient delivery to tissue, To improve muscle performance and motor function, To improve ability to perform ADL's, To increase tolerance to activity/condition/position, To improve performance and independence with ADL's, To improve ability of physical actions for home/community/work/leisure, To improve gait and locomotor functions, To improve health of tissue, To decrease soft tissue restriction, To increase flexibility/ROM, To improve endurance and To improve safety with gait Last Seen Last Seen: This patient was last seen in our office 01/14/25. Pertinent comments regarding their Physical therapy will appear below: [facility] PT At this point I will be discontinuing this patient from physical therapy. I would be happy to see this patient again in the future if found appropriate by the physician. Thank you! Sandra Hobbs, JCARLOS Balance/Gait/Functional tests Balance/Special Test Scores Lower Extremity Functional Score: 23
== END 2025-01-14 19:00 | disposition home or self-care (01) ==
LOC: PT 09:00
PROVIDERS: Referring Provider Orthopaedic Surgery; Visit Provider Orthopaedic Surgery
DX: M47.816 Spondylosis without myelopathy or radiculopathy, lumbar region (principal); M16.12 Unilateral primary osteoarthritis, left hip; M70.62 Trochanteric bursitis, left hip
CPT/HCPCS: 97110; 97140; 97162

== ENCOUNTER 2025-01-20 10:34 | Day surgery (SDC) | payer MEDICARE, MEDICAID, SELFPAY ==
--- NOTE | 2025-01-16 14:37 | PAT.ANE_ITS ---
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 When Was Last Pacemaker Check QUESTION #4 FULL TEXT: You/Your Family Experience fever (hyperthermia) with Anesthesia Last Oral Intake Last Oral intake: Last Oral Intake NPO since Meds taken in AM with sips of water? Meds patient instructed to take am of surgery PONV PONV - bag machine adjuster: PONV - bag machine adjuster Female No 01/16/25 14:01 HX of Motion Sickness No 01/16/25 14:01 HX of N/V After Surgery No 01/16/25 14:01 Non-Smoker No 01/16/25 14:01 Duration of Surgery greater No 01/16/25 14:01 than 60 minutes Number of Risk Factors PONV Score Height & Weight Height & Weight: Anesthesia: Height & Weight Height 5 ft 8 in 12/01/24 07:38 Respiratory Assessment Respiratory Assessment - bag machine adjuster: Respiratory Tract Infection Hx - bag machine adjuster Hx Respiratory Tract Infection No 01/16/25 14:01 STOP Sleep Apnea STOP Sleep Apnea - bag machine adjuster: STOP Sleep Apnea - bag machine adjuster Hx Hypertension Yes: PER CAREGIVER, WELL 01/16/25 14:01 CONTROLLED Hx Sleep Apnea No 01/16/25 14:01 CPAP No 01/16/25 14:01 BIPAP No 01/16/25 14:01 Do you snore loudly (louder No 01/16/25 14:01 than talking or can be heard Do you often feel tired/ No 01/16/25 14:01 fatigued/ sleepy during daytime? Has anyone observed you stop No 01/16/25 14:01 breathing during sleep? STOP Results Negative 01/16/25 14:01 QUESTION #5 FULL TEXT : Do you snore loudly (louder than talking or can be heard through closed doors)? 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 Specify any problems Hx of Preganancy in last 3 N/A 01/16/25 14:01 Months Nurse Filling Out Transfusion VCHRISTIN 01/16/25 14:01 & Questions: Date: 01/16/25 01/16/25 14:01 Time: 14:02 01/16/25 14:01 Patient unable to answer at this time (ie. confused, unrespo /Reproduction History /Reproductive History - bag machine adjuster: /Reproductive Hx- bag machine adjuster Hx Now Gestational Age (in weeks): EDC: Hx Hx Para Hx [facility] Medical History (Updated 01/16/25 @ 14:01 by Norma Summers) History of echocardiogram History of stress test Cardiology follow-up encounter Walker as ambulation aid On home oxygen therapy Shortness of breath on exertion Chronic cough History of edema H/O inguinal hernia Obesity (BMI 30.0-34.9) Bilateral lower extremity edema Hypersomnia Dyspnea Hypoxia Mental disability Speech abnormality Seasonal allergies Alcohol use Back pain Gastric reflux Hoarseness Chews tobacco History of heart attack Heart murmur Rib fractures HTN (hypertension) COVID-19 Home Medications ?Medication ?Instructions ?Recorded ?Last Taken ?Type ibuprofen 600 mg tablet 600 mg PO Q6H PRN PRN pain # 20 10/05/22 Unknown Rx TABLETS cetirizine 10 mg tablet 10 mg PO DAILY 12/29/22 Unkn own History pantoprazole 40 mg tablet,delayed 40 mg PO DAILY 12/2901/08/23 History release albuterol sulfate 90 mcg/actuation 2 puff inhalation Q 4H PRN Wheezing 05/31/23 U nknown History aerosol inhaler lisinopril 20 mg tablet 20 mg PO DAILY 05/31/23 Unkn own History montelukast 10 mg tablet 10 mg PO QHS 06/06/23 Unknow n History tamsulosin 0.4 mg capsule 0.4 mg PO DAILY 06/06/23 Unk nown History aspirin 81 mg tablet,delayed 81 mg PO DAILY #30 tabs 1 09/04/22 Unknown Rx release isosorbide mononitrate 60 mg 60 mg PO DAILY #30 tabs 1 09/04/22 Unknown Rx tablet,extended release 24 hr potassium chloride 20 mEq 20 meq PO DAILY #30 tabs Unknown Rx tablet,extended release acetaminophen 500 mg tablet 1,000 mg PO TID PRN pain 0 09/19/23 Unknown History (Tylenol Extra Strength) fluticasone propionate 50 1 spray intranasal DAILY all ergy 09/19/23 Unknown History mcg/actuation nasal symptoms spray,suspension polyethylene glycol 3350 17 gram 17 g PO DAILY PRN con stipation 09/19/23 Unknown History oral powder packet atorvastatin 20 mg tablet 20 mg PO QHS 11/05/24 Unknow n History coenzyme Q10 100 mg capsule 100 mg PO QDAY 11/05/24 Un known History famotidine 20 mg tablet 20 mg PO QDAY 11/05/24 Unkno wn History melatonin 5 mg capsule 5 mg PO QHS 11/05/24 Unknown History metoprolol succinate 100 mg 100 mg PO DAILY 11/05/24 U nknown History tablet,extended release 24 hr trazodone 100 mg tablet 100 mg PO QHS 11/05/24 Unkno wn History budesonide 32 mcg/actuation nasal 1 spray intranasal D AILY 12/30/24 Unknown History spray fluticasone 100 mcg-salmeterol 50 1 inh inhalation BID 12/30/24 Unknown History mcg/dose blistr powdr for inhalation (Advair Diskus) furosemide 20 mg tablet 60 mg PO QDAY 12/30/24 Unkno wn History guaifenesin 600 mg tablet, 600 mg PO TID PRN COUGH Unknown History extended release 12 hr metoprolol succinate 25 mg 25 mg PO QDAY 12/30/24 Unkn own History tablet,extended release 24 hr nystatin 100,000 unit/gram topical 1 applic topical TI D 12/30/24 Unknown History powder Allergy/AdvReac Type Severity Reaction Status Date / Time grass pollen Allergy Intermediate Chest Verified 01/16/25 13:49 tightness bee venom protein (honey bee) Allergy Anaphylaxis Verified 01/16/25 13:49 mushroom Allergy swollen Verified 01/16/25 13:49 Family History Mother Heart disease Father Heart disease Surgical History Hx of tonsillectomy Social History Smoking Status: Current every day smoker tobacco type: smokeless tobacco Smokeless tobacco user: chewing tobacco alcohol intake: current alcohol intake frequency: a few times a month substance use type: does not use caffeine: Yes Audit: Pertinent Findings Pertinent Findings EKG Perinent findings: 06/12/2023. Normal sinus rhythm 88 bpm. Inferior infarct, age undetermined. Echo (EF%) pertinent findings: 07/11/2023. EF 65%. Consult pertinent findings: Cardiology 11/23/2024. Coronary artery disease. Chronic. Stress test 07/25/2023 negative for ischemia. Stable. Continue current medications. Recommendation Anesthesia Recommendation Anesthesia recommendation: OPTIMIZED for anesthesia
[2025-01-20] VITALS (8 sets, daily range): BP systolic 90–110; BP diastolic 43–67; PULSE 66–88; RESP 16–18; TEMP 36.6–37.7; O2SAT 94–98; BMI 40.8
[2025-01-20] MEDS: Lactated Ringers 1,000 ML 15 ML IV (11:39)
--- NOTE | 2025-01-20 11:40 | HP.PCM_ITS ---
HPI - General General Date of Admission: 01/20/25 Date of Service: 01/20/25 Chief Complaint: Screening colon HPI Narrative KRISTY MERCER, is a 69 M who presents screening colonoscopy 01/01/2024 [facility] Assessment and Plan (1) Difficulty swallowing: Status: Acute Qualifiers: Dysphagia type: unspecified Qualified Code(s): R13.10 - Dysphagia, unspecified Plan: Patient is having dysphagia and epigastric pain suggestive of reflux. The patient also reports feeling like he is choking in the morning. The patient has been started on a PPI but reports no improvement. I discussed EGD with possible dilation with him. I discussed the increased risks of bleeding and perforation. (2) Screen for colon cancer: Status: Acute Plan: Patient is overdue for screening colonoscopy. I explained endoscopy in detail to the patient. I explained the risks including but not limited to stroke or heart attack with anesthesia, perforation of the GI tract, bleeding, infection. I explained that any of these could necessitate further emergency surgery. The patient understands and all questions were answered sufficiently. The patient wishes to proceed with procedure. 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 - denies any dyspnea or CP - c/o difficulty sleeping, reports a h/o sleep study but never heard the results [facility] P: [phone] [email or web address] Medical History History of echocardiogram History of stress test Cardiology follow-up encounter Walker as ambulation aid On home oxygen therapy Shortness of breath on exertion Chronic cough History of edema H/O inguinal hernia Obesity (BMI 30.0-34.9) Bilateral lower extremity edema Hypersomnia Dyspnea Hypoxia Mental disability Speech abnormality Seasonal allergies Alcohol use Back pain Gastric reflux Hoarseness Chews tobacco History of heart attack Heart murmur Rib fractures HTN (hypertension) COVID-19 Home Medications ?Medication ?Instructions ?Recorded ?Last Taken ?Type ibuprofen 600 mg tablet 600 mg PO Q6H PRN PRN pain # 20 10/05/22 Unknown Rx TABLETS cetirizine 10 mg tablet 10 mg PO DAILY 12/29/22 Unkn own History pantoprazole 40 mg tablet,delayed 40 mg PO DAILY 12/2901/08/23 History release albuterol sulfate 90 mcg/actuation 2 puff inhalation Q 4H PRN Wheezing 05/31/23 Unknown History aerosol inhaler lisinopril 20 mg tablet 20 mg PO DAILY 05/31/23 Unkn own History montelukast 10 mg tablet 10 mg PO QHS 06/06/23 Unknow n History tamsulosin 0.4 mg capsule 0.4 mg PO DAILY 06/06/23 Unk nown History aspirin 81 mg tablet,delayed 81 mg PO DAILY #30 tabs 1 09/04/22 Unknown Rx release isosorbide mononitrate 60 mg 60 mg PO DAILY #30 tabs 1 09/04/22 Unknown Rx tablet,extended release 24 hr potassium chloride 20 mEq 20 meq PO DAILY #30 tabs Unknown Rx tablet,extended release acetaminophen 500 mg tablet 1,000 mg PO TID PRN pain 0 09/19/23 Unknown History (Tylenol Extra Strength) fluticasone propionate 50 1 spray intranasal DAILY all ergy 09/19/23 Unknown History mcg/actuation nasal symptoms spray,suspension polyethylene glycol 3350 17 gram 17 g PO DAILY PRN con stipation 09/19/23 Unknown History oral powder packet atorvastatin 20 mg tablet 20 mg PO QHS 11/05/24 Unknow n History coenzyme Q10 100 mg capsule 100 mg PO QDAY 11/05/24 Un known History famotidine 20 mg tablet 20 mg PO QDAY 11/05/24 Unkno wn History melatonin 5 mg capsule 5 mg PO QHS 11/05/24 Unknown History metoprolol succinate 100 mg 100 mg PO DAILY 11/05/24 0 01/20/25 07:30 History tablet,extended release 24 hr trazodone 100 mg tablet 100 mg PO QHS 11/05/24 Unkno wn History budesonide 32 mcg/actuation nasal 1 spray intranasal D AILY 12/30/24 Unknown History spray fluticasone 100 mcg-salmeterol 50 1 inh inhalation BID 12/30/24 Unknown History mcg/dose blistr powdr for inhalation (Advair Diskus) furosemide 20 mg tablet 60 mg PO QDAY 12/30/24 Unkno wn History guaifenesin 600 mg tablet, 600 mg PO TID PRN COUGH Unknown History extended release 12 hr metoprolol succinate 25 mg 25 mg PO QDAY 12/30/24 Unkn own History tablet,extended release 24 hr nystatin 100,000 unit/gram topical 1 applic topical TI D 12/30/24 Unknown History powder Allergy/AdvReac Type Severity Reaction Status Date / Time grass pollen Allergy Intermediate Chest Verified 01/20/25 11:21 tightness bee venom protein (honey bee) Allergy Anaphylaxis Verified 01/20/25 11:21 mushroom Allergy swollen Verified 01/20/25 11:21 Family History Mother Heart disease Father Heart disease Surgical History Hx of tonsillectomy Social History Smoking Status: Former smoker quit date: 09/09/75 pack-years: 5 Smokeless tobacco user: chewing tobacco alcohol intake: current alcohol intake frequency: a few times a month substance use type: does not use caffeine: Yes ROS Constitutional Constitutional: Denies fatigue, fever(s), poor appetite, weight gain or weight loss Gastrointestinal Gastrointestinal: Denies belching, bloating, change in bowel habits, change in stool character, chewing difficulty, coffee ground emesis, constipation, cramping, diarrhea, dyspepsia, dysphagia, early satiety, excessive flatus, fecal incontinence, heartburn, hematemesis, hematochezia, hemorrhoids, loose stools, melena, nausea, odynophagia, rectal bleeding, tenesmus, vomiting or weight changes Vital Signs Vital Signs Vital Signs: 01/20/25 11:22 01/20/25 11:22 Temperature 98.1 F Temperature Source Temporal Pulse Rate 88 Respiratory Rate 16 Respiratory Pattern Normal Blood Pressure 110/67 Blood Pressure Mean 81 Blood Pressure Source Monitor Blood Pressure Position Semi-Fowlers Blood Pressure Location Left Arm Pulse Ox 94 Oxygen Delivery Method Room Air Weight Weight: 238 lb 1.588 oz Body Mass Index (BMI) 40.8 Physical Exam Const no apparent distress Resp normal respiratory effort GI soft to palpation and non-tender Assessment & Plan Assessment/Plan (1) Rectal bleeding: (2) Screen for colon cancer: (3) Lower abdominal pain: PLAN: Assessment and Plan Assessment and Plan (1) Screen for colon cancer: Status: Acute (2) Rectal bleeding: Status: Acute (3) Lower abdominal pain: Status: Acute Medications: New peg 3350-electrolytes 236-22.74-6.74 -5.86 gram (Golytely) as directed for split dose bowel prep 240 mL PO Q10M 4,000 mL 0RF Plan 69-year-old male presents for initial consultation. He was seen by [facility] December 2023 for complaints of dysphagia and epigastric pain suggestive of reflux. It was recommended he schedule an EGD for further evaluation as well as screening colonoscopy; however, he was unable to complete testing due to lack of transportation. He presently denies any HB, N/V, epigastric pain, or dysphagia. He does endorse occasional BRBPR and complains of lower abdominal pain. Pain is exacerbated with standing and coughing. Although, he reports improvement in pain with a bowel movement. He will proceed with colonoscopy. I have recommended he follow-up with pulmonology to review previous sleep study. Patient Instructions: Colonoscopy - GoLyte bowel prep Schedule follow-up [facility] pulmonology
--- NOTE | 2025-01-20 11:44 | PRE.ANES_ITS ---
ASA Classification* ASA Classification ASA Classification: 3 (hx TBI, HTN, GERD, CHRIS, oxygen use at night, asthma/COPD, dysarthric speech) Assessment & Plan Anesthesia* Anesthesia Assessment Anesthesia Assessment: Discussed sedation and/or anesthesia options, risks, benefits, and alternatives with patient/parents/legal guardian/POA. Questions invited. The patient/parents/legal guardian/POA seems to understand and agrees to proceed with anesthesia plan. Reviewed the physical assessment, medical history, allergy history and patient home medications list prior to surgery/procedure/anesthetic and documented any changes. Performed airway and anesthesia risk assessments. Anesthesia Type Anesthesia Type: General History Source History Obtained from:: Patient and Chart Anesthesia Focused Assessment* Temperature: 98.1 F Pulse Rate: 88 Blood Pressure: 110/67 Respiratory Rate: 16 Pulse Ox: 94 Airway Assessment Mouth opens: >3 cm Mallampati Score: III Teeth Condition: Missing (Missing many) Neck Range of motion (ROM): Full ROM Labs Anesthesia Preop lab: CBC WBC 7.1 K/mm3 (4.4-11.0) 06/12/23 08:05 06/12/23 RBC 4.71 M/mm3 (4.6-6.2) 06/12/23 08:05 06/12/23 Hgb 15.4 g/dL (13.0-16.5) 06/12/23 08:05 06/12/23 Hct 47.5 % (40-54) 06/12/23 08:05 06/12/23 Plt Count 276 K/mm3 (150-450) 06/12/23 08:05 06/12/23 CHEMISTRY Potassium 4.0 mmol/L (3.5-5.1) 06/12/23 08:05 06/12/23 Sodium 137 mmol/L (136-145) 06/12/23 08:05 06/12/23 BUN 14 mg/dL (7-18) 06/12/23 08:05 06/12/23 Creatinine 0.95 mg/dL (0.70-1.30) 06/12/23 08:05 06/12/23 Glucose 85 mg/dL (74-106) 06/12/23 08:05 06/12/23 TSH 2.70 uIU/mL (0.358-3.74) 06/06/23 11:58 COAG Pre-Assessment Diagnosis/Proposed Procedure Planned Operative Procedure(s): COLONOSCOPY Anesthesia History 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 When Was Last Pacemaker Check QUESTION #4 FULL TEXT: You/Your Family Experience fever (hyperthermia) with Anesthesia Last Oral Intake Last Oral intake: Last Oral Intake NPO since 06:30 01/20/25 11:22 Meds taken in AM with sips of Yes 01/20/25 11:22 water? Meds patient instructed to take am of surgery PONV PONV - policy writer sales: PONV - policy writer sales Female No 01/16/25 14:01 HX of Motion Sickness No 01/16/25 14:01 HX of N/V After Surgery No 01/16/25 14:01 Non-Smoker No 01/16/25 14:01 Duration of Surgery greater No 01/16/25 14:01 than 60 minutes Number of Risk Factors PONV Score Height & Weight Height & Weight: Anesthesia: Height & Weight Height 5 ft 4 in 01/20/25 11:22 Weight: 108 kg 01/20/25 11:22 Body Mass Index (BMI) 40.8 01/20/25 11:22 Respiratory Assessment Respiratory Assessment - policy writer sales: Respiratory Tract Infection Hx - policy writer sales Hx Respiratory Tract Infection No 01/16/25 14:01 STOP Sleep Apnea STOP Sleep Apnea - policy writer sales: STOP Sleep Apnea - policy writer sales Hx Hypertension Yes: PER CAREGIVER, WELL 01/16/25 14:01 CONTROLLED Hx Sleep Apnea No 01/16/25 14:01 CPAP No 01/16/25 14:01 BIPAP No 01/16/25 14:01 Do you snore loudly (louder No 01/16/25 14:01 than talking or can be heard Do you often feel tired/ No 01/16/25 14:01 fatigued/ sleepy during daytime? Has anyone observed you stop No 01/16/25 14:01 breathing during sleep? STOP Results Negative 01/16/25 14:01 QUESTION #5 FULL TEXT : Do you snore loudly (louder than talking or can be heard through closed doors)? 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 Specify any problems Hx of Preganancy in last 3 N/A 01/16/25 14:01 Months Nurse Filling Out Transfusion VCHRISTIN 01/16/25 14:01 & Questions: Date: 01/16/25 01/16/25 14:01 Time: 14:02 01/16/25 14:01 Patient unable to answer at this time (ie. confused, unrespo /Reproduction History /Reproductive History - policy writer sales: /Reproductive Hx- policy writer sales Hx Now Gestational Age (in weeks): EDC: Hx Hx Para Hx Section SAB Active Medications Active Medications: Current Medications Generic Name Dose Route Start Last Admin Trade Name Freq PRN Reason Stop Dose Admin Lactated Ringer's 1,000 mls @ 15 mls/hr 01/20/25 11:00 01/20/25 11:39 IV 15 mls/hr .Q48H MELITON Administration PFSH Medical History History of echocardiogram History of stress test Cardiology follow-up encounter Walker as ambulation aid On home oxygen therapy Shortness of breath on exertion Chronic cough History of edema H/O inguinal hernia Obesity (BMI 30.0-34.9) Bilateral lower extremity edema Hypersomnia Dyspnea Hypoxia Mental disability Speech abnormality Seasonal allergies Alcohol use Back pain Gastric reflux Hoarseness Chews tobacco History of heart attack Heart murmur Rib fractures HTN (hypertension) COVID-19 Home Medications ?Medication ?Instructions ?Recorded ?Last Taken ?Type ibuprofen 600 mg tablet 600 mg PO Q6H PRN PRN pain # 20 10/05/22 Unknown Rx TABLETS cetirizine 10 mg tablet 10 mg PO DAILY 12/29/22 Unkn own History pantoprazole 40 mg tablet,delayed 40 mg PO DAILY 12/2901/08/23 History release albuterol sulfate 90 mcg/actuation 2 puff inhalation Q 4H PRN Wheezing 05/31/23 Unknown History aerosol inhaler lisinopril 20 mg tablet 20 mg PO DAILY 05/31/23 Unkn own History montelukast 10 mg tablet 10 mg PO QHS 06/06/23 Unknow n History tamsulosin 0.4 mg capsule 0.4 mg PO DAILY 06/06/23 Unk nown History aspirin 81 mg tablet,delayed 81 mg PO DAILY #30 tabs 1 09/04/22 Unknown Rx release isosorbide mononitrate 60 mg 60 mg PO DAILY #30 tabs 1 09/04/22 Unknown Rx tablet,extended release 24 hr potassium chloride 20 mEq 20 meq PO DAILY #30 tabs Unknown Rx tablet,extended release acetaminophen 500 mg tablet 1,000 mg PO TID PRN pain 0 09/19/23 Unknown History (Tylenol Extra Strength) fluticasone propionate 50 1 spray intranasal DAILY all ergy 09/19/23 Unknown History mcg/actuation nasal symptoms spray,suspension polyethylene glycol 3350 17 gram 17 g PO DAILY PRN con stipation 09/19/23 Unknown History oral powder packet atorvastatin 20 mg tablet 20 mg PO QHS 11/05/24 Unknow n History coenzyme Q10 100 mg capsule 100 mg PO QDAY 11/05/24 Un known History famotidine 20 mg tablet 20 mg PO QDAY 11/05/24 Unkno wn History melatonin 5 mg capsule 5 mg PO QHS 11/05/24 Unknown History metoprolol succinate 100 mg 100 mg PO DAILY 11/05/24 0 01/20/25 07:30 History tablet,extended release 24 hr trazodone 100 mg tablet 100 mg PO QHS 11/05/24 Unkno wn History budesonide 32 mcg/actuation nasal 1 spray intranasal D AILY 12/30/24 Unknown History spray fluticasone 100 mcg-salmeterol 50 1 inh inhalation BID 12/30/24 Unknown History mcg/dose blistr powdr for inhalation (Advair Diskus) furosemide 20 mg tablet 60 mg PO QDAY 12/30/24 Unkno wn History guaifenesin 600 mg tablet, 600 mg PO TID PRN COUGH Unknown History extended release 12 hr metoprolol succinate 25 mg 25 mg PO QDAY 12/30/24 Unkn own History tablet,extended release 24 hr nystatin 100,000 unit/gram topical 1 applic topical TI D 12/30/24 Unknown History powder Allergy/AdvReac Type Severity Reaction Status Date / Time grass pollen Allergy Intermediate Chest Verified 01/20/25 11:21 tightness bee venom protein (honey bee) Allergy Anaphylaxis Verified 01/20/25 11:21 mushroom Allergy swollen Verified 01/20/25 11:21 Family History Mother Heart disease Father Heart disease Surgical History Hx of tonsillectomy Social History Smoking Status: Former smoker quit date: 09/09/75 pack-years: 5 Smokeless tobacco user: chewing tobacco alcohol intake: current alcohol intake frequency: a few times a month substance use type: does not use caffeine: Yes Review of Systems (Anesthesia) ROS Narrative System reviewed and no additional complaints, except as documented. Physical Exam Const alert, oriented x3 and average body habitus Resp normal respiratory effort, normal air movement and clear to auscultation monik aterally Cardio regular rate, regular rhythm, no murmurs and diaphoretic
--- NOTE | 2025-01-20 12:18 | PCM.POST.ANE ---
Anesthesia: Postop Eval I Current Vital Signs Temperature: 98 F Pulse Rate: 70 Blood Pressure: 90/43 Respiratory Rate: 16 Pulse Ox: 98 Oxygen Delivery Method: Room Air Assessment Airway patent: Yes Spontaneous unlabored respirations: Yes Mental status: Awake and Calm nausea: No Vomiting: No Anesthesia Complication: No Fluid Hydration Crystalloid volume administer (ml): 500 Total IV fluid infused: 500 Progress Note Anesthesia document: Postop Eval 1 completed: Yes
--- NOTE | 2025-01-20 13:10 | OP.COLON_ITS ---
Patient Name: Omero Plummer Procedure Date: 01/20/2025 11:11 AM Date of : 1955 Age: 69 Procedure: Colonoscopy Indications: Screening for colorectal malignant neoplasm Providers: Cordell Celestin DO Medicines: Monitored Anesthesia Care Patient Profile: This is a 69 year old male. Refer to note in patient chart for documentation of history and physical. Last Colonoscopy: none. The patient's first colonoscopy is today. Complications: No immediate complications. Procedure: Pre-Anesthesia Assessment: - Prior to the procedure, a History and Physical was performed, and patient medications and allergies were reviewed. The patient is competent. The risks and benefits of the procedure and the sedation options and risks were discussed with the patient. All questions were answered and informed consent was obtained. Patient identification and proposed procedure were verified by the physician in the pre-procedure area. Mental Status Examination: alert and oriented. Airway Examination: normal oropharyngeal airway and neck mobility. Respiratory Examination: clear to auscultation. CV Examination: normal. Prophylactic Antibiotics: The patient does not require prophylactic antibiotics. Prior Anticoagulants: The patient has taken no anticoagulant or antiplatelet agents. ASA Grade Assessment: II - A patient with mild systemic disease. After reviewing the risks and benefits, the patient was deemed in satisfactory condition to undergo the procedure. The anesthesia plan was to use monitored anesthesia care (MAC). Immediately prior to administration of medications, the patient was re-assessed for adequacy to receive sedatives. The heart rate, respiratory rate, oxygen saturations, blood pressure, adequacy of pulmonary ventilation, and response to care were monitored throughout the procedure. The physical status of the patient was re-assessed after the procedure. After I obtained informed consent, the scope was passed under direct vision. Throughout the procedure, the patient's blood pressure, pulse, and oxygen saturations were monitored continuously. The colonoscope was introduced through the anus and advanced to the terminal ileum. The colonoscopy was performed without difficulty. The patient tolerated the procedure well. The quality of the bowel preparation was adequate. The terminal ileum, ileocecal valve, appendiceal orifice, and rectum were photographed. Scope In: 12:00:23 PM Scope Withdrawal Time 0 hours 6 minutes 59 seconds Scope Out: 12:09:03 PM Total Procedure Duration Time 0 hours 8 minutes 40 seconds Findings: The perianal and digital rectal examinations were normal. A few small-mouthed diverticula were found in the recto-sigmoid colon and hepatic flexure. The exam was otherwise without abnormality on direct and retroflexion views. Impression: - Diverticulosis in the recto-sigmoid colon and at the hepatic flexure. - The examination was otherwise normal on direct and retroflexion views. - No specimens collected. Recommendation: - Discharge patient to home. - Repeat colonoscopy in 10 years for screening purposes. - Continue present medications. Procedure Code(s): --- Professional --- 84376, Colonoscopy, flexible; diagnostic, including collection of specimen(s) by brushing or washing, when performed (separate procedure) CPT copyright 2021 [employer]. All rights reserved. The codes documented in this report are preliminary and upon maternal fetal physician review may be revised to meet current compliance requirements. Cordell Celestin DO 01/20/2025 1:10:17 PM This report has been signed electronically. Number of Addenda: 0 Note Initiated On: 01/20/2025 11:11 AM
--- NOTE | 2025-01-20 13:11 | OP.CCLET_ITS ---
01/20/2025 Priti Ruiz [facility] Re : Colonoscopy procedure for Omero Shaikh [facility] This procedure was performed on Monday, January 20, 2025. My impressions and recommendations are as follows: Impressions : - Diverticulosis in the recto-sigmoid colon and at the hepatic flexure. - The examination was otherwise normal on direct and retroflexion views. - No specimens collected. Recommendations : - Discharge patient to home. - Repeat colonoscopy in 10 years for screening purposes. - Continue present medications. My findings are described in the full procedure note, which is enclosed. If I can be of further assistance, please feel free to contact me at . Sincerely, Cordell Celestin, 01/20/2025 1:10:17 PM This report has been signed electronically.
--- NOTE | 2025-01-20 18:35 | PCM.POSTANE2 ---
Anesthesia Postop Eval I Sum Postop Eval Completion status Anesthesia document: Postop Eval 1 completed: Yes Anesthesia Postop Eval I Summary Anesthesia Postop Eval I Summary: Anesthesia Postop Eval I: Assessment Summary Airway patent Yes 01/20/25 12:19 [email or web address] Spontaneous unlabored Yes 01/20/25 12:19 [email or web address] respirations Mental status Awake,Calm 01/20/25 12:19 [email or web address] nausea No 01/20/25 12:19 [email or web address] Vomiting No 01/20/25 12:19 [email or web address] Anesthesia Postop Eval I: Fluid Summary Crystalloid volume administer 500 01/20/25 12:19 [email or web address] (ml) Colloids volume administered ( ml) Blood Product volume administered (ml) Total IV fluid infused 500 01/20/25 12:19 [email or web address] Anesthesia Postop Eval I: Summary Notes Anesthesia Complication No 01/20/25 12:19 [email or web address] Anesthesia Complication Comment: Post-operative progress note Anesthesia: Postop Eval II Evaluation Mental status: Awake Pain Level: 0 nausea: No Vomiting: No Complications Anesthesia Complication: No
--- OUTSIDE RECORDS SUMMARY | 2025-01-20 21:56 | XMS RPT_ITS | CCD ---
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 Derrell Toribio Attending Provider Dr. Derrell Toribio Referring Provider Dr. Derrell Toribio Other Provider Dr. Derrell Toribio Admit Provider Dr. Delicia Davis Attending Provider Dr. Delicia Davis Other Provider Dr. Kenton Couch Attending Provider Dr. Derrell Toribio Referring Provider Dr. Talat Corado Attending Provider [facility] [place] Primary Care Pro vider [facility] [place] Referring Provid er Dr. Talat Corado Referring Provider Dr. Talat Corado Other Provider [facility] [place] Primary Care Pro vider [facility] [place] Referring Provid er Dr. Talat Corado Attending Provider Dr. Talat Corado Referring Provider Dr. Talat Corado Other Provider Khoa, Dr. Fung Attending Provider [facility] [place] [facility] Pro vider Dr. Talat Corado Attending Provider [facility] [place] [facility] Referring Provid er Khoa, Dr. Fung Referring Provider Khoa, Dr. Fung Other Provider [facility] [place] [facility] Pro vider [facility] [place] [facility] Referring Provid er [facility] [place] [facility] Pro vider [facility] [place] Referring Provid er Derrell GLEASONCBarbara Attending Provider Dr. Herbert Pizarro DO Attending Provider Musa WHITTAKER-Fany Hamm Attending Provider Dr. Herbert Pizarro DO Referring Provider Marcos WHITTAKER-Jess Hamm Attending Provider Barbara Dove Attending Unavailable [facility] [place] [facility] Unavailable [facility] [place] [facility] Referring Unavailable [facility] [place] [facility] Unavailable Herbert Pizarro Attending Unavailable [facility] [place] [facility] Referring Unavailable [facility] [place] [facility] Unavailable Fany Vigil NP Attending Unavailable [facility] [place] [facility] Referring Unavailable [facility] [place] [facility] Unavailable Cordell Celestin Attending Unavailable [facility] [place] [facility] Unavailable Herbert Pizarro Attending Unavailable Herbert Pizarro Referring Unavailable Jess Rodríguez NP Attending Unavailable [facility] [place] [facility] Referring Unavailable [facility] [place] [facility] Unavailable Barbara Dove Attending Unavailable [facility] [place] [facility] Unavailable [facility] [place] [facility] Referring [facility]available [facility] [place] [facility] Unavailable Herbert Pizarro Attending Unavailable [facility] [place] Referring Unavailable Dr. Herbert Pizarro DO Referring Provider Friend Dr. Cordell CALDERA Attending Provider Beam DEVELOPMENT EDITOR-CLester Primary Care Provider Beam DEVELOPMENT EDITOR-CLester Referring Provider Friend Dr. Cordell CALDERA Other Provider Allergies Allergy Classification Reported Allergen(s) Allergy Type Date of Onset Reaction(s) Facility (14 sources) bee venom protein (honey bee) Allergy to substance 2 Anaphylaxis [facility] (8 sources) cultivated mushroom extract Drug Allergy 3 swollen [facility] (7 sources) Grass pollen; Translations: [grass pollen] Allergy to substance 3 Chest tightness [facility] (1 source) Mushroom (edible) Drug allergy (disorder) 5 [facility] (1 source) bee venom protein (honey bee) Drug allergy (disorder) 5 [facility] Medications Current Medications Medication Drug Class(es) Dates Sig (Normalized) Sig (Original) acetaminophen 500 mg oral tablet (12 sources) Start: 09-19-2023 take 2 tablets by mouth three times daily as needed for pain Acetaminophen (Tylenol Extra Strength) 500 mg tablet Active 1000 mg PO THREE TIMES A DAY as needed for pain September 19, 2023 1:00am Start: 01-09-2023 End: 09-19-2023 take 2 tablets by mouth every four hours as needed Acetaminophen 325 mg Tablet Discontinued 650 mg PO EVERY 4 HOURS NEEDED as needed for P/F 0 January 09, 2023 12:00am September 19, 2023 3:12pm Start: 01-09-2023 End: 09-19-2023 take 650 mg by mouth every four hours as needed Acetaminophen Discontinued 650 MG PO EVERY 4 HOURS NEEDED 0 January 08, 2023 11:00pm September 19, 2023 2:12pm acetaminophen 325 mg / oxyCODONE hydrochloride 5 mg oral tablet (2 sources) Opioid Agonist Start: 06-27-2022 take 1 tablet by mouth every six hours as needed Oxycodone-Acetaminophen Active 1 TABLET PO EVERY 6 HOURS NEEDED 20 5 June 27, 2022 [id number] 200 actuat albuterol 0.09 mg/actuat metered dose inhaler (15 sources) beta2-Adrene rgic Agonist Start: 05-31-2023 Albuterol Sulfate 90 mcg/actuation HFA aerosol inhaler Active 2 NMA INHALATION Q4H as needed for Wheezing May 31, 2023 9:47am Start: 05-31-2023 take 1 puff(s) by in halation every four hours Albuterol Sulfate Active 2 PUFF INHALATION Q4H May 31, 2023 8:47am Start: 12-29-2022 End: 05-31-2023 Albuterol Sulfate 90 mcg/act uation HFA aerosol inhaler Discontinued 1 - 2 NMA INHALATION NEEDED as needed for Wheezing December 29, 2022 12:00am May 31, 2023 9:50am Start: 12-29-2022 End: 05-31-2023 Albuterol Sulfate Discontinu ed 1 - 2 PUFF INHALATION NEEDED December 28, 2022 11:00pm May 31, 2023 8:50am aspirin 81 mg delayed release oral tablet (8 sources) Platelet Aggregation Inhibitor, Nonsteroidal Anti-inflammatory Drug Start: 07-05-2023 End: 07-05-2023 take 1 tablet by mouth once daily Aspirin 81 mg tablet,delayed release (DR/EC) Active 81 mg PO DAILY July 05, 2023 6:03pm atorvastatin 20 mg oral tablet (8 sources) HMG-CoA Reductase Inhibitor Start: 11-05-2024 take 1 tablet by mouth at bedtime Atorvastatin 20 mg tablet Active 20 mg PO AT BEDTIME November 05, 2024 12:00am Start: 09-19-2023 End: 01-01-2024 take 1 tablet by mouth at bedtime Atorvastatin 10 mg tablet Discontinued 10 mg PO AT BEDTIME September 19, 2023 5:12pm January 01, 2024 9:45am budesonide 0.032 mg/actuat metered dose nasal spray (2 sources) Corticosteroid Start: 12-30-2024 Budesonide 32 mcg/actuation spray,non-aerosol Active 1 NMA INTRANASAL DAILY December 30, 2024 12:00am Start: 12-30-2024 Budesonide 32 mcg/actuation spray,non-aerosol Active INTRANASAL December 30, 2024 12:00am cetirizine hydrochloride 10 mg oral tablet (9 sources) Histamine-1 Receptor Antagonist Start: 12-29-2022 take 1 tablet by mouth once daily Cetirizine 10 mg tablet Active 10 mg PO DAILY December 29, 2022 12:00am famotidine 20 mg oral tablet (2 sources) Histamine-2 Receptor Antagonist Start: 11-05-2024 take 1 tablet by mouth once daily Famotidine 20 mg tablet Active 20 mg PO daily November 05, 2024 12:00am fluticasone propionate 0.05 mg/actuat metered dose nasal spray (3 sources) Corticosteroid Start: 09-19-2023 Fluticasone Propionate 50 mcg/actuation spray,suspension Active 1 NMA INTRANASAL DAILY September 19, 2023 1:00am Start: 09-19-2023 Fluticasone Pr opionate Active 1 SPRAY INTRANASAL DAILY September 19, 2023 12:00am Fluticasone Propion-Salmeterol (2 sources) Corticosteroid, beta2-Adrenergic Agonist Start: 12-30-2024 Fluticasone Propion-Salmeterol (Advair Diskus) 100-50 mcg/dose blister with device Active 1 NMA INHALATION TWICE A DAY December 30, 2024 12:00am furosemide 20 mg oral tablet (20 sources) Loop Diuretic Start: 12-30-2024 take 1 tablet by mouth once daily Furosemide 20 mg tablet Active 60 mg PO daily December 30, 2024 12:00am Take 1 & 1/2 tabes Start: 11-05-2024 End: 12-30-2024 Furosemide (Lasix) 40 mg tab let Discontinued 60 mg PO DAILY November 05, 2024 10:58am December 30, 2024 8:01am Start: 06-06-2023 End: 11-05-2024 take 1 tablet by mouth once daily Furosemide (Lasix) 40 mg tablet Discontinued 40 mg PO DAILY July 05, 2023 6:03pm November 05, 2024 11:03am Start: 04-26-2023 End: 06-06-2023 take 1 tablet by mouth once daily Furosemide (Lasix) 20 mg tablet Discontinued 20 mg PO DAILY April 26, 2023 12:00am June 06, 2023 11:31am 12 hr guaiFENesin 600 mg extended release oral tablet (9 sources) Start: 12-30-2024 take 1 tablet by mouth three times daily as needed Guaifenesin 600 mg tablet extended release 12hr Active 600 mg PO 3 TIMES DAILY NEEDED December 30, 2024 12:00am Start: 12-30-2024 take 1 tablet by zully th every twelve hours Guaifenesin 600 mg tablet extended release 12hr Active mg PO December 30, 2024 12:00am Start: 05-24-2023 End: 12-30-2024 take 1 tablet by mouth every twelve hours, then take 1 tablet by mouth every twelve hours Guaifenesin (Mucinex) 1,200 mg tablet extended release 12hr Discontinued 1200 mg PO Q12H May 24, 2023 12:00am December 30, 2024 8:02am ibuprofen 600 mg oral tablet (10 sources) Nonsteroidal Anti-inflammatory Drug Start: 10-05-2022 take 1 tablet by mouth every six hours as needed for pain Ibuprofen 600 mg tablet Active 600 mg PO EVERY 6 HOURS NEEDED as needed for pain October 05, 2022 1:00am 24 hr isosorbide mononitrate 60 mg extended release oral tablet (8 sources) Nitrate Vasodilator Start: 07-05-2023 End: 07-05-2023 take 1 tablet by mouth once daily, then take 1 tablet by mouth every twenty-four hours Isosorbide Mononitrate 60 mg tablet extended release 24 hr Active 60 mg PO DAILY July 05, 2023 6:03pm lisinopril 20 mg oral tablet (6 sources) Angiotensin Converting Enzyme Inhibitor Start: 05-31-2023 take 1 tablet by mouth once daily Lisinopril 20 mg tablet Active 20 mg PO DAILY May 31, 2023 12:00am melatonin 5 mg oral capsule (2 sources) Start: 11-05-2024 take 1 capsule by mouth at bedtime Melatonin 5 mg capsule Active 5 mg PO AT BEDTIME November 05, 2024 12:00am 24 hr metoprolol succinate 25 mg extended release oral tablet (20 sources) beta-Adrenergic Tracy Start: 12-30-2024 take 1 tablet by mouth once daily Metoprolol Succinate 25 mg tablet extended release 24 hr Active 25 mg PO daily December 30, 2024 12:00am Start: 11-05-2024 Metoprolol Suc cinate 100 mg tablet extended release 24 hr Active 125 mg PO DAILY November 05, 2024 11:00am Start: 07-05-2023 End: 07-05-2023 take 1 tablet by mouth once daily Metoprolol Succinate 50 mg tablet extended release 24 hr Discontinued 50 mg PO DAILY July 05, 2023 1:00am July 05, 2023 3:45pm Start: 07-05-2023 End: 07-05-2023 take 50 mg by mouth once daily Metoprolol Succinate Di scontinued 50 MG PO DAILY July 05, 2023 12:00am July 05, 2023 2:45pm Start: 06-06-2023 End: 11-05-2024 take 1 tablet by mouth once daily Metoprolol Succinate 100 mg tablet extended release 24 hr Discontinued 100 mg PO DAILY July 05, 2023 6:03pm November 05, 2024 11:03am Start: 12-29-2022 End: 06-06-2023 take 1 tablet by mouth once daily Metoprolol Succinate 50 mg tablet extended release 24 hr Discontinued 50 mg PO DAILY December 29, 2022 12:00am June 06, 2023 11:32am montelukast 10 mg oral tablet (6 sources) Leukotriene Receptor Antagonist Start: 06-06-2023 take 1 tablet by mouth at bedtime Montelukast 10 mg tablet Active 10 mg PO AT BEDTIME June 06, 2023 12:00am nystatin 100 unt/mg topical powder (2 sources) Polyene Antifungal Start: 12-30-2024 Nystatin 10 0,000 unit/gram powder Active 1 NMA TOPICAL THREE TIMES A DAY December 30, 2024 12:00am Start: 12-30-2024 Nystatin 100,0 00 unit/gram powder Active TOPICAL December 30, 2024 12:00am pantoprazole 40 mg delayed release oral tablet (9 sources) Proton Pump Inhibitor Start: 12-29-2022 take 1 tablet by mouth once daily Pantoprazole 40 mg tablet,delayed release (DR/EC) Active 40 mg PO DAILY December 29, 2022 12:00am polyethylene glycol 3350 37485 mg powder for oral solution (3 sources) Osmotic Laxative Start: 09-19-2023 take 17 g by mouth once daily as needed for constipation Polyethylene Glycol 3350 17 gram powder in packet Active 17 g PO DAILY as needed for constipation September 19, 2023 1:00am potassium chloride 20 meq extended release oral tablet (10 sources) Start: 06-06-2023 End: 07-05-2023 take 1 tablet by mouth once daily Potassium Chloride 20 mEq tablet extended release Active 20 meq PO DAILY July 05, 2023 6:03pm tamsulosin hydrochloride 0.4 mg oral capsule (6 sources) alpha-Adrenergi c Tracy Start: 06-06-2023 take 1 capsule by mouth once daily Tamsulosin 0.4 mg capsule Active 0.4 mg PO DAILY June 06, 2023 12:00am traZODone hydrochloride 100 mg oral tablet (2 sources) Serotonin Reuptake Inhibitor Start: 11-05-2024 take 1 tablet by mouth at bedtime Trazodone 100 mg tablet Active 100 mg PO AT BEDTIME November 05, 2024 12:00am ubidecarenone 100 mg oral capsule (2 sources) Start: 11-05-2024 take 10 capsules by mouth once daily Coenzyme Q10 100 mg capsule Active 100 mg PO daily November 05, 2024 12:00am Completed/Discontinued Medications Medication Drug Class(es) Dates Sig (Normalized) Sig (Original) 120 actuat albuterol 0.1 mg/actuat / ipratropium bromide 0.02 mg/actuat inhalation spray (8 sources) Anticholinergic, beta2-Adrenergic Agonist Start: 04-26-2023 End: 09-19-2023 Ipratropium-Albuter ol 20-100 mcg/actuation mist Discontinued 1 NMA INHALATION Q4H as needed for shortness of breath or wheezing 4 April 26, 2023 12:00am September 19, 2023 3:16pm Start: 04-26-2023 End: 09-19-2023 take 1 puff(s) by inhalation every four hours Ipratropium-Albuterol Discontinued 1 PUFF INHALATION Q4H 4 April 25, 2023 11:00pm September 19, 2023 2:16pm amLODIPine 10 mg oral tablet (13 sources) Dihydropyridine Calcium Channel Tracy Start: 07-05-2023 End: 07-05-2023 take 1 tablet by mouth once daily Amlodipine 10 mg tablet Discontinued 10 mg PO DAILY July 05, 2023 1:00am July 05, 2023 3:45pm Start: 12-29-2022 End: 06-06-2023 take 1 tablet by mouth once daily Amlodipine 10 mg tablet Discontinued 10 mg PO DAILY December 29, 2022 12:00am June 06, 2023 11:30am amoxicillin 875 mg / clavulanate 125 mg oral tablet (9 sources) Penicillin-class Antibacterial Start: 01-09-2023 End: 01-22-2023 Amoxicillin-Pot Clavulanate 875-125 mg tablet Discontinued 1 {tbl} PO TWICE A DAY 10 January 09, 2023 12:00am January 22, 2023 9:21am Start: 01-09-2023 End: 01-22-2023 take 1 tablet by mouth twice daily Amoxicillin-Pot Clavulanate Discontinued 1 TABLET PO TWICE A DAY 10 January 08, 2023 11:00pm January 22, 2023 8:21am azithromycin 500 mg oral tablet (9 sources) Macrolide Antimicrobial Start: 01-09-2023 End: 01-22-2023 take 1 tablet by mouth once daily Azithromycin 500 mg tablet Discontinued 500 mg PO DAILY 3 January 09, 2023 12:00am January 22, 2023 9:22am naproxen 250 mg oral tablet (2 sources) Nonsteroidal Anti-inflammatory Drug Start: 11-05-2024 End: 12-02-2024 take 1 tablet by mouth twice daily as needed Naproxen 250 mg tablet Discontinued 250 mg PO TWICE A DAY as needed November 05, 2024 12:00am December 02, 2024 3:57pm oxyCODONE hydrochloride 10 mg oral tablet (9 sources) Opioid Agonist Start: 01-08-2023 End: 01-22-2023 take 5-10 mg by mouth every six hours as needed for pain Oxycodone 10 mg tablet Discontinued 5 - 10 mg PO EVERY 6 HOURS as needed for pain 20 January 08, 2023 January 22, 2023 9:22am polyethylene glycol 3350 853262 mg / potassium chloride 2970 mg / sodium bicarbonate 6740 mg / sodium chloride 5860 mg / sodium sulfate 77027 mg powder for oral solution (2 sources) Osmotic Laxative Start: 11-05-2024 End: 12-02-2024 Peg 3350-Electrolytes (Golytely) 236-22.74-6.74 -5.86 gram recon soln Discontinued 240 mL PO Q10M 4000 November 05, 2024 12:00am December 02, 2024 3:56pm as directed for split dose bowel prep predniSONE 20 mg oral tablet (8 sources) Start: 04-26-2023 End: 05-24-2023 take 1 tablet by mouth once daily Prednisone 20 mg tablet Discontinued 20 mg PO DAILY April 26, 2023 12:00am May 24, 2023 1:19pm Problems Active Problems Problem Classification Problem Date Documented Da te Episodic/Chronic Abdominal hernia (14 sources) Left inguinal hernia ; Translations: [Unilateral inguinal hernia, without obstruction or gangrene, not specified as recurrent] 12-27-2022 Episodic Abdominal pain (6 sources) Lower abdominal pain; Translations: [Lower abdominal pain, unspecified] Onset: 11-05-2024 11-05-2024 Episodic Coronary atherosclerosis and other heart disease (7 sources) Coronary arteriosclerosis; Translations: [Atherosclerotic heart disease of [place] coronary artery without angina pectoris] Onset: 12-02-2024 09-19-2023 Chronic Developmental disorders (2 sources) Intellectual disability; Translations: [Unspecified intellectual disabilities] 12-30-2024 Chronic E Codes: Fall (11 sources) Fall; Translations: [Unspecified fall, initial encounter] 07-05-2022 Episodic Esophageal disorders (2 sources) Gastric reflux; Translations: [Gastro-esophageal reflux disease without esophagitis] 01-01-2024 Chronic Essential hypertension (15 sources) Hypertensive disorder; Translations: [Essential (primary) hypertension] 05-31-2023 Chronic Comment on above: PER CAREGIVER, CONTR OLLED ON MEDS Gastrointestinal hemorrhage (6 sources) Rectal hemorrhage; Translations: [Hemorrhage of anus and rectum] Onset: 11-05-2024 11-05-2024 Episodic Nonspecific chest pain (15 sources) Chest wall pain; Translations: [Other chest pain] 10-05-2022 Episodic Osteoarthritis (6 sources) Arthritis of hip; Translations: [Unilateral primary osteoarthritis, left hip] Onset: 11-21-2024 11-21-2024 Chronic Other connective tissue disease (4 sources) Trochanteric bursitis; Translations: [Trochanteric bursitis, left hip] 11-21-2024 Episodic Other connective tissue disease (2 sources) Trochanteric bursitis, left hip; Translations: [Trochanteric bursitis, left hip] Onset: 11-21-2024 Episodic Other fractures (8 sources) Fracture of rib; Translations: [Fracture of one rib, left side, initial encounter for closed fracture] 07-05-2022 Episodic Other fractures (11 sources) Fracture of multiple ribs ; Translations: [Multiple fractures of ribs, unspecified side, initial encounter for closed fracture] 06-27-2022 Episodic Other fractures (1 source) Multiple fractures of ribs, unspecified side, initial encounter for closed fracture; Translations: [Closed fracture of multiple ribs, unspecified] 05-24-2023 Episodic Other fractures (3 sources) Fracture of left rib; Translations: [Fracture of one rib, left side, initial encounter for closed fracture] 07-05-2022 Episodic Other gastrointestinal disorders (2 sources) Dysphagia; Translations: [Dysphagia, unspecified] 01-01-2024 Episodic Other lower respiratory disease (10 sources) Hypoxia; Translations: [Hypoxemia] 01-08-2023 Episodic Other lower respiratory disease (10 sources) Hypoxemia; Translations: [Hypoxemia] 01-09-2023 Episodic Other lower respiratory disease (8 sources) Dyspnea; Translations: [Dyspnea, unspecified] 02-12-2023 Episodic Other lower respiratory disease (15 sources) Dyspnea, unspecified; Translations: [Other respiratory abnormalities] 02-12-2023 Episodic Other nervous system disorders (2 sources) Disturbance in speech; Translations: [Unspecified speech disturbances] 12-30-2024 Episodic Other nutritional; endocrine; and metabolic disorders (7 sources) Obese class I; Translations: [Obesity, unspecified] 06-06-2023 Chronic Other nutritional; endocrine; and metabolic disorders (7 sources) Obesity, unspecified; Translations: [Obesity, unspecified] 06-06-2023 Chronic Other screening for suspected conditions (not mental disorders or infectious disease) (6 sources) Patient encounter status; Translations: [Encounter for screening for malignant neoplasm of colon] Onset: 11-05-2024 01-01-2024 Episodic Other upper respiratory disease (2 sources) Seasonal allergy; Translations: [Other seasonal allergic rhinitis] 12-30-2024 Chronic Residual codes; unclassified (7 sources) Hypersomnia; Translations: [Hypersomnia, unspecified] 05-24-2023 Chronic Residual codes; unclassified (4 sources) Hypersomnia, unspecified; Translations: [Hypersomnia, unspecified] 05-24-2023 Chronic Residual codes; unclassified (4 sources) Obstructive sleep apnea syndrome; Translations: [Obstructive sleep apnea (adult) (pediatric)] 12-30-2024 Chronic Residual codes; unclassified (1 source) Obstructive sleep apnea (adult) (pediatric); Translations: [Obstructive sleep apnea (adult) (pediatric)] Onset: 12-30-2024 Chronic Residual codes; unclassified (6 sources) Bilateral lower limb edema; Translations: [Localized edema] 06-06-2023 Episodic Residual codes; unclassified (7 sources) Localized edema; Translations: [Edema] 06-06-2023 Episodic Spondylosis; intervertebral disc disorders; other back problems (6 sources) Spondylosis without myelopathy or radiculopathy, lumbar region; Translations: [Osteoarthritis of lumbar spine] Onset: 11-21-2024 11-21-2024 Chronic Spondylosis; intervertebral disc disorders; other back problems (14 sources) Sciatica; Translations: [Sciatica, unspecified side] 01-06-2020 Episodic Spondylosis; intervertebral disc disorders; other back problems (2 sources) Spondylosis; intervertebral disc disorders; other back problems Superficial injury; contusion (11 sources) Contusion of thigh; Translations: [Contusion of left thigh, initial encounter] 07-05-2022 Episodic Viral infection (14 sources) Disease caused by 2019-nCoV; Translations: [COVID-19] 04-16-2021 Episodic Past or Other Problems Problem Classification Problem Date Documented Da te Episodic/Chronic Other non-traumatic joint disorders (1 source) Pain in right knee; Translations: [Pain in right knee] Onset: 03-15-2017 Episodic Results Test Name Value Interpretation Reference Range Facility [email or web address] 01-16-2025 MR/PAT.[facility] Medical Records Department [address] [place] [address] PAT - Anesthesia 01/16/25 1437 MR#: [id number] Acct: [id number] Name: OMERO MERCER Jr. Rep #: [id number] : 1955 69 From: Davey Saenz MD PCP: [facility] Status:PRE SDC Y Race: C Location: [place] Pre-Assessment Diagnosis/Proposed Procedure Planned Operative Procedure(s): COLONOSCOPY Anesthesia History Anesthesia History - it project lead: Anesthesia History - it project lead Hx Hospitalization No 01/16/25 14:01 Any Problems With Anesthesia No 01/16/25 14:01 Cholinesterase deficiency No 01/16/25 14:01 You/Your Family Experience No 01/16/25 14:01 fever (hyperthermia) with Relationship Recent Exposure to Contagious No 01/08/23 12:30 Disease Does patient have nerve No 01/16/25 14:01 stimulator Patient instructed to have device shut off --Does patient have Pacemaker or ICD? When Was Last Pacemaker Check QUESTION #4 FULL TEXT: You/Your Family Experience fever (hyperthermia) with Anesthesia Last Oral Intake Last Oral intake: Last Oral Intake NPO since Meds taken in AM with sips of water? Meds patient instructed to take am of surgery PONV PONV - it project lead: PONV - it project lead Female No 01/16/25 14:01 HX of Motion Sickness No 01/16/25 14:01 HX of N/V After Surgery No 01/16/25 14:01 Non-Smoker No 01/16/25 14:01 Duration of Surgery greater No 01/16/25 14:01 than 60 minutes Number of Risk Factors PONV Score Height Weight Height Weight: Anesthesia: Height Weight Height 5 ft 8 in 12/01/24 07:38 Respiratory Assessment Respiratory Assessment - it project lead: Respiratory Tract Infection Hx - it project lead Hx Respiratory Tract Infection No 01/16/25 14:01 STOP Sleep Apnea STOP Sleep Apnea - it project lead: STOP Sleep Apnea - it project lead Hx Hypertension Yes: PER CAREGIVER, WELL 01/16/25 14:01 CONTROLLED Hx Sleep Apnea No 01/16/25 14:01 CPAP No 01/16/25 14:01 BIPAP No 01/16/25 14:01 Do you snore loudly (louder No 01/16/25 14:01 than talking or can be heard Do you often feel tired/ No 01/16/25 14:01 fatigued/ sleepy during daytime? Has anyone observed you stop No 01/16/25 14:01 breathing during sleep? STOP Results Negative 01/16/25 14:01 QUESTION #5 FULL TEXT : Do you snore loudly (louder than talking or can be heard through closed doors)? 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 Specify any problems Hx of Preganancy in last 3 N/A 01/16/25 14:01 Months Nurse Filling Out Transfusion VCHRISTIN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 [Mass/Vol] 85 mg/dL 74-106 [facility] Neutrophils (Bld) [#/Vol] 3.7 10*3/uL 2.0-7.7 [facility] Neutrophils/100 WBC (Bld) 51.7 % 47-70 [facility] Potassium [Moles/Vol] 4.0 mmol/L 3.5-5.[address] [facility] Sodium [Moles/Vol] 137 mmol/L 136-145 [facility] WBC (Bld) [#/Vol] 7.1 10*3/uL 4.4-11.0 [facility] Blood erythrocytes count (nu mber/volume)Ordered By: Ulisses Young on 06-12-2023 RBC (Bld) [#/Vol] 4.71 10*6/uL 4.6-6.2 [facility] Blood hemoglobin measurement (mass/volume)Ordered By: Ulisses Young on 06-12-2023 Hemoglobin (Bld) [Mass/Vol] 15.4 g/dL 13.0-16.5 [facility] Blood lymphocytes/100 leukoc ytesOrdered By: Ulisses Young on 06-12-2023 Lymphocytes/100 WBC (Bld) 15.4 % 19-41 [facility] Blood monocytes/100 leukocyt esOrdered By: Ulisses Young on 06-12-2023 Monocytes/100 WBC (Bld) 11.8 % 0-10 [facility] Blood platelet mean volumeOr dered By: Ulisses Young on 06-12-2023 Platelet mean volume (Bld) [Entitic vol] 9.2 fL 6.2-12.0 [facility] Determination of erythrocyte mean corpuscular volume (MCV)Ordered By: Ulisses Young on 06-12-2023 MCV (RBC) [Entitic vol] 100.8 fL 80-94 [facility] Hematocrit Auto (Bld) [Volum e fraction]Ordered By: Ulisses Young on 06-12-2023 Hematocrit (Bld) [Volume fraction] 47.5 % 40-54 [facility] Laboratory - Chemistry and C hemistry - challengeOrdered By: Ulisses Young on 06-12-2023 CO2 [Moles/Vol] 29.0 mmol/L 21.0-32.0 [facility] Urea nitrogen/Creatinine [Mass ratio] 14.7 mg/mg 10-20 [facility] - Hematology and Cell countsOrdered By: Ulisses Young on 06-12-2023 Erythrocyte distribution width (RBC) [Entitic vol] 45.5 fL 35.1-43.9 [facility] Erythrocyte distribution width (RBC) [Ratio] 11.9 % 11.6-14.6 [facility] Immature granulocytes/100 WBC (Bld) 0.300 % 0.0-0.9 [facility] Comment on above: IG% - Immature Granu locytes (promyelocytes, myelocytes and metamyelocytes) > 1% indicates that a LEFT SHIFT is Present. MCH (RBC) [Entitic mass] 32.7 pg 27.0-32.0 [facility] Nucleated RBC/100 WBC (Bld) [Ratio] 0 % 0-5 [facility] MCHC Auto (RBC) [Mass/Vol]Or dered By: Ulisses Young on 06-12-2023 MCHC (RBC) [Mass/Vol] 32.4 g/dL 32-[address] [facility] No Panel InformationOrdered By: Ulisses Young on 06-12-2023 Troponin I High Sensitivity 8 pg/mL 3.0-78.0 [facility] Comment on above: Please Note: New Ness t Units and Gender Specific Reference Ranges. For more information see Policy Stat Procedure [place] High Sensitivity Troponin (TNIH) and attachments. D-Dimer Quantitative (PE/DVT) 0.48 FEU/ug/m 0.27-0.49 [facility] Comment on above: NORMAL D-Dimer level (<0.50) indicates no DVT or PE. Estimated Creatinine Clearance Calc 75.00 ml/min [facility] Estimated GFR (MDRD) Amer 102 mL/min >60 [facility] Comment on above: GFR Calc Estimated GFR (MDRD) Non-Af Amer 84 mL/min >60 [facility] Comment on above: Non- GFR Calc Platelets bldOrdered By: Shea Young on 06-12-2023 Platelets (Bld) [#/Vol] 276 10*3/uL 150-450 [facility] Serum or plasma calcium adilene urement (mass/volume)Ordered By: Ulisses Young on 06-12-2023 Calcium [Mass/Vol] 9.2 mg/dL 8.5-10.1 [facility] Serum or plasma creatinine m easurement (mass/volume)Ordered By: Ulisses Young on 06-12-2023 Creatinine [Mass/Vol] 0.95 mg/dL 0.70-1.[address] [facility] Comment on above: The validity of the calculated GFR & GFRAA in patients over 70 years has not been determined. Clinical correlation is essential. Serum or plasma urea nitroge n measurement (mass/volume)Ordered By: [facility] on 06-12-2023 Urea nitrogen [Mass/Vol] 14 mg/dL 7-18 [facility] Thin prep Papanicolaou smear with manual screeningOrdered By: Ulisses Young on 06-12-2023 Thin prep Papanicolaou smear with manual screening 4 5-15 [facility] - Chemistry and C hemistry - challengeOrdered By: Kenton Couch on 06-06-2023 Natriuretic peptide B (Bld) [Mass/Vol] 12.5 pg/mL 0-100 [facility] No Panel InformationOrdered By: Kenton Couch on 06-06-2023 Thyroid Stimulating Hormone (TSH) 2.70 uIU/mL 0.358-3.74 [facility] Absolute lymphocyte countOrd ered By: Rex Urbano on 04-26-2023 Lymphocytes Auto (Unsp spec) [#/Vol] 0.57 10*3/uL 0.83-4.51 [facility] Basophil percentageOrdered B y: Rex Urbano on 04-26-2023 Basophils/100 WBC (Bld) 0.9 % 0-1 [facility] Chloride [Moles/Vol] 106 mmol/L 98-107 [facility] Eosinophils/100 WBC (Bld) 12.1 % 0-5 [facility] Glucose [Mass/Vol] 118 mg/dL 74-106 [facility] Comment on above: Fasting Glucose resu lt from 100 to 125 mg/dL suggests IMPAIRED HOMEOSTASIS per A.D.A. criteria. Neutrophils (Bld) [#/Vol] 3.8 10*3/uL 2.0-7.7 [facility] Neutrophils/100 WBC (Bld) 65.0 % 47-70 [facility] Potassium [Moles/Vol] 4.1 mmol/L 3.5-5.[address] [facility] Sodium [Moles/Vol] 138 mmol/L 136-145 [facility] WBC (Bld) [#/Vol] 5.8 10*3/uL 4.4-11.0 [facility] Blood erythrocytes count (nu mber/volume)Ordered By: Rex Urbano on 04-26-2023 RBC (Bld) [#/Vol] 3.98 10*6/uL 4.6-6.2 [facility] Blood hemoglobin measurement (mass/volume)Ordered By: Rex Urbano on 04-26-2023 Hemoglobin (Bld) [Mass/Vol] 13.2 g/dL 13.0-16.5 [facility] Blood lymphocytes/100 leukoc ytesOrdered By: Rex Urbano on 04-26-2023 Lymphocytes/100 WBC (Bld) 9.9 % 19-41 [facility] Blood manual differential co mment interpretation (narrative result)Ordered By: Rex Urbano on 04-26-2023 Manual differential comment Maxwell (Bld) [Interp] COMMENT [facility] Comment on above: LYMPHOPENIA. Blood monocytes/100 leukocyt esOrdered By: Rex Urbano on 04-26-2023 Monocytes/100 WBC (Bld) 11.8 % 0-10 [facility] Blood platelet mean volumeOr dered By: Rex Urbano on 04-26-2023 Platelet mean volume (Bld) [Entitic vol] 8.8 fL 6.2-12.0 [facility] Determination of erythrocyte mean corpuscular volume (MCV)Ordered By: Rex Urbano on 04-26-2023 MCV (RBC) [Entitic vol] 103.0 fL 80-94 [facility] HCO3 (BldA) [Moles/Vol]Order ed By: Rex Urbano on 04-26-2023 HCO3 (Bld) [Moles/Vol] 28 mmol/L 22-26 [facility] Hematocrit Auto (Bld) [Volum e fraction]Ordered By: Rex Urbano on 04-26-2023 Hematocrit (Bld) [Volume fraction] 41.0 % 40-54 [facility] Influenza virus A and B and SARS-CoV-2 (COVID-19) Ag panel - Upper respiratory specimOrdered By: Rex Urbano on 04-26-2023 SARS-CoV-2 (COVID-19) RNA ANA+probe Ql (Resp) [facility] - Chemistry and C hemistry - challengeOrdered By: Rex Urbano on 04-26-2023 CO2 [Moles/Vol] 30 mmol/L 23-33 [facility] CO2 [Moles/Vol] 29.0 mmol/L 21.0-32.0 [facility] Natriuretic peptide B (Bld) [Mass/Vol] 21.2 pg/mL 0-100 [facility] Urea nitrogen/Creatinine [Mass ratio] 11.2 mg/mg 10-20 [facility] - Hematology and Cell countsOrdered By: Rex Urbano on 04-26-2023 Erythrocyte distribution width (RBC) [Entitic vol] 49.4 fL 35.1-43.9 [facility] Erythrocyte distribution width (RBC) [Ratio] 12.9 % 11.6-14.6 [facility] Immature granulocytes/100 WBC (Bld) 0.300 % 0.0-0.9 [facility] Comment on above: IG% - Immature Granu locytes (promyelocytes, myelocytes and metamyelocytes) > 1% indicates that a LEFT SHIFT is Present. MCH (RBC) [Entitic mass] 33.2 pg 27.0-32.0 [facility] Nucleated RBC/100 WBC (Bld) [Ratio] 0 % 0-5 [facility] MCHC Auto (RBC) [Mass/Vol]Or dered By: Rex Urbano on 04-26-2023 MCHC (RBC) [Mass/Vol] 32.2 g/dL 32-[address] [facility] No Panel InformationOrdered By: Rex Urbano on 04-26-2023 Bed Mix Venous Bld PCO2 at Pat Temp 51.5 mmHg 41-51 [facility] Blood Gas Oxygen Percent 21.0 [facility] Blood Gas Sample Site Not entered [facility] Blood Gas Specimen Type BOGDAN [facility] Oxygen Delivery Device Not entered [facility] Venous Blood Base Excess 2 mmol/L -1.0-3.5 [facility] Estimated Creatinine Clearance Calc 66.59 ml/min [facility] Estimated GFR (MDRD) Amer 89 mL/min >60 [facility] Comment on above: GFR Calc Estimated GFR (MDRD) Non-Af Amer 74 mL/min >60 [facility] Comment on above: Non- GFR Calc Troponin I High Sensitivity 5 pg/mL 3.0-78.0 [facility] Comment on above: Please Note: New Ness t Units and Gender Specific Reference Ranges. For more information see Policy Stat Procedure [place] High Sensitivity Troponin (TNIH) and attachments. PO2 venousOrdered By: Rex Urbano on 04-26-2023 Oxygen (BldV) [Partial pressure] 39 mm[Hg] 25-40 [facility] Platelets bldOrdered By: Trini Urbano on 04-26-2023 Platelets (Bld) [#/Vol] 281 10*3/uL 150-450 [facility] Serum or plasma calcium adilene urement (mass/volume)Ordered By: Rex Urbano on 04-26-2023 Calcium [Mass/Vol] 9.0 mg/dL 8.5-10.1 [facility] Serum or plasma creatinine m easurement (mass/volume)Ordered By: Rex Urbano on 04-26-2023 Creatinine [Mass/Vol] 1.07 mg/dL 0.70-1.[address] [facility] Comment on above: The validity of the calculated GFR & GFRAA in patients over 70 years has not been determined. Clinical correlation is essential. Serum or plasma urea nitroge n measurement (mass/volume)Ordered By: Rex Urbano on 04-26-2023 Urea nitrogen [Mass/Vol] 12 mg/dL 7-18 [facility] Thin prep Papanicolaou smear with manual screeningOrdered By: Rex Urbano on 04-26-2023 Thin prep Papanicolaou smear with manual screening 3 5-15 [facility] Vital signsOrdered By: Gomez Urbano on 04-26-2023 Oxygen saturation in Blood 70 % 50-70 [facility] pH measurementOrdered By: Katlyn Urbano on 04-26-2023 pH (Unsp spec) 7.35 [pH] 7.32-7.42 [facility] Absolute lymphocyte countOrd ered By: Dr. Toribio on 01-09-2023 Lymphocytes Auto (Unsp spec) [#/Vol] 0.46 10*3/uL 0.83-4.51 [facility] Basophil percentageOrdered B y: Dr. Toribio on 01-09-2023 Basophils/100 WBC (Bld) 0.1 % 0-1 [facility] Chloride [Moles/Vol] 106 mmol/L 98-107 [facility] Eosinophils/100 WBC (Bld) 0.0 % 0-5 [facility] Glucose [Mass/Vol] 131 mg/dL 74-106 [facility] Comment on above: Fasting Glucose resu lt greater than or equal to 126 mg/dL suggests DIABETES MELLITUS per A.D.A. criteria. Neutrophils (Bld) [#/Vol] 10.6 10*3/uL 2.0-7.7 [facility] Neutrophils/100 WBC (Bld) 91.0 % 47-70 [facility] Potassium [Moles/Vol] 4.3 mmol/L 3.5-5.[address] [facility] Sodium [Moles/Vol] 139 mmol/L 136-145 [facility] WBC (Bld) [#/Vol] 11.6 10*3/uL 4.4-11.0 [facility] Blood erythrocytes count (nu mber/volume)Ordered By: Dr. Toribio on 01-09-2023 RBC (Bld) [#/Vol] 4.57 10*6/uL 4.6-6.2 [facility] Blood hemoglobin measurement (mass/volume)Ordered By: Dr. Toribio on 01-09-2023 Hemoglobin (Bld) [Mass/Vol] 14.8 g/dL 13.0-16.5 [facility] Blood lymphocytes/100 leukoc ytesOrdered By: Dr. Toribio on 01-09-2023 Lymphocytes/100 WBC (Bld) 4.0 % 19-41 [facility] Blood manual differential co mment interpretation (narrative result)Ordered By: Dr. Toribio on 01-09-2023 Manual differential comment Maxwell (Bld) [Interp] COMMENT [facility] Comment on above: LYMPHOPENIA NOTED Blood monocytes/100 leukocyt esOrdered By: Dr. Toribio on 01-09-2023 Monocytes/100 WBC (Bld) 4.2 % 0-10 [facility] Blood platelet mean volumeOr dered By: Dr. Toribio on 01-09-2023 Platelet mean volume (Bld) [Entitic vol] 9.3 fL 6.2-12.0 [facility] Determination of erythrocyte mean corpuscular volume (MCV)Ordered By: Dr. Toribio on 01-09-2023 MCV (RBC) [Entitic vol] 102.6 fL 80-94 [facility] Hematocrit Auto (Bld) [Volum e fraction]Ordered By: Dr. Toribio on 01-09-2023 Hematocrit (Bld) [Volume fraction] 46.9 % 40-54 [facility] - Chemistry and C hemistry - challengeOrdered By: Dr. Toribio on 01-09-2023 CO2 [Moles/Vol] 28.0 mmol/L 21.0-32.0 [facility] Urea nitrogen/Creatinine [Mass ratio] 11.9 mg/mg 10-20 [facility] - Hematology and Cell countsOrdered By: Dr. Toribio on 01-09-2023 Erythrocyte distribution width (RBC) [Entitic vol] 48.9 fL 35.1-43.9 [facility] Erythrocyte distribution width (RBC) [Ratio] 12.9 % 11.6-14.6 [facility] Immature granulocytes/100 WBC (Bld) 0.700 % 0.0-0.9 [facility] Comment on above: IG% - Immature Granu locytes (promyelocytes, myelocytes and metamyelocytes) > 1% indicates that a LEFT SHIFT is Present. MCH (RBC) [Entitic mass] 32.4 pg 27.0-32.0 [facility] Nucleated RBC/100 WBC (Bld) [Ratio] 0 % 0-5 [facility] MCHC Auto (RBC) [Mass/Vol]Or dered By: Dr. Toribio on 01-09-2023 MCHC (RBC) [Mass/Vol] 31.6 g/dL 32-[address] [facility] No Panel InformationOrdered By: Dr. Davis on 01-09-2023 Streptococcus pneumoniae Antigen (M [facility] No Panel InformationOrdered By: Dr. Toribio on 01-09-2023 Estimated Creatinine Clearance Calc 70.54 ml/min [facility] Estimated GFR (MDRD) Amer 95 mL/min >60 [facility] Comment on above: GFR Calc Estimated GFR (MDRD) Non-Af Amer 79 mL/min >60 [facility] Comment on above: Non- GFR Calc Platelets bldOrdered By: Dr. Toribio on 01-09-2023 Platelets (Bld) [#/Vol] 281 10*3/uL 150-450 [facility] Serum or plasma calcium adilene urement (mass/volume)Ordered By: Dr. Toribio on 01-09-2023 Calcium [Mass/Vol] 9.0 mg/dL 8.5-10.1 [facility] Serum or plasma creatinine m easurement (mass/volume)Ordered By: Dr. Toribio on 01-09-2023 Creatinine [Mass/Vol] 1.01 mg/dL 0.70-1.[address] [facility] Comment on above: The validity of the calculated GFR & GFRAA in patients over 70 years has not been determined. Clinical correlation is essential. Serum or plasma urea nitroge n measurement (mass/volume)Ordered By: Dr. Toribio on 01-09-2023 Urea nitrogen [Mass/Vol] 12 mg/dL 7-18 [facility] Thin prep Papanicolaou smear with manual screeningOrdered By: Dr. Toribio on 01-09-2023 Thin prep Papanicolaou smear with manual screening 5 5-15 [facility] Urine Legionella pneumophila antigen detectionOrdered By: Dr. Davis on 01-09-2023 L. pneumophila Ag Ql (U) [facility] Basophil percentageOrdered B y: Dr. Davis on 01-08-2023 Bilirubin [Mass/Vol] 0.40 mg/dL 0.20-1.00 [facility] Comment on above: For patients on eltr ombopag therapy, use of Dimension [place] TBIL is not recommended. Protein [Mass/Vol] 7.4 g/dL 6.4-8.2 [facility] Blood platelet adequacy dete ction by light microscopyOrdered By: Dr. Davis on 01-08-2023 Platelets LM Ql (Bld) ADEQUATE ADEQ [facility] Laboratory - Chemistry and C hemistry - challengeOrdered By: Dr. Davis on 01-08-2023 ALP [Catalytic activity/Vol] 64 U/L 45-117 [facility] ALT [Catalytic activity/Vol] 23 U/L 16-61 [facility] Cobalamin (Vitamin B12) [Mass/Vol] 268 pg/mL 211-911 [facility] Globulin (S) [Mass/Vol] 3.9 g/dL 2.2-4.2 [facility] Natriuretic peptide B (Bld) [Mass/Vol] 21.4 pg/mL 0-100 [facility] - Hematology and Cell countsOrdered By: Dr. Davis on 01-08-2023 Anisocytosis Ql (Bld) 1+ [facility] Macrocytes detectionOrdered By: Dr. Davis on 01-08-2023 Macrocytes Ql (Bld) 1+ [facility] RBC morphologyOrdered By: Dr Dave Davis on 01-08-2023 RBC morphology finding Nom (Bld) N CHROM NORMAL NORM C&C [facility] Serum or plasma albumin adilene urement (mass/volume)Ordered By: Dr. Davis on 01-08-2023 Albumin [Mass/Vol] 3.5 g/dL 3.2-5.0 [facility] Serum or plasma albumin/glob ulin mass ratioOrdered By: Dr. Davis on 01-08-2023 Albumin/Globulin [Mass ratio] 0.9 {ratio} 0.9-2.4 [facility] Serum or plasma folate measu rement (mass/volume)Ordered By: Dr. Davis on 01-08-2023 Folate [Mass/Vol] 14.50 ng/mL 3.1-55.4 [facility] Thin prep Papanicolaou smear with manual screeningOrdered By: Dr. Davis on 01-08-2023 Thin prep Papanicolaou smear with manual screening 18 U/L 15-37 [facility] Absolute lymphocyte countOrd ered By: Tess Peoples on 06-15-2022 Lymphocytes Auto (Unsp spec) [#/Vol] 0.67 10*3/uL 0.83-4.51 [facility] Basophil percentageOrdered B y: Tess Peoples on 06-15-2022 Basophils/100 WBC (Bld) 0.7 % 0-1 [facility] Chloride [Moles/Vol] 106 mmol/L 98-107 [facility] Eosinophils/100 WBC (Bld) 7.6 % 0-5 [facility] Glucose [Mass/Vol] 94 mg/dL 74-106 [facility] Neutrophils (Bld) [#/Vol] 3.8 10*3/uL 2.0-7.7 [facility] Neutrophils/100 WBC (Bld) 69.7 % 47-70 [facility] Potassium [Moles/Vol] 4.3 mmol/L 3.5-5.[address] [facility] Sodium [Moles/Vol] 138 mmol/L 136-145 [facility] WBC (Bld) [#/Vol] 5.5 10*3/uL 4.4-11.0 [facility] Blood erythrocytes count (nu mber/volume)Ordered By: Tess Peoples on 06-15-2022 RBC (Bld) [#/Vol] 4.91 10*6/uL 4.6-6.2 [facility] Blood hemoglobin measurement (mass/volume)Ordered By: Tess Peoples on 06-15-2022 Hemoglobin (Bld) [Mass/Vol] 16.7 g/dL 13.0-16.5 [facility] Blood lymphocytes/100 leukoc ytesOrdered By: Tess Peoples on 06-15-2022 Lymphocytes/100 WBC (Bld) 12.2 % 19-41 [facility] Blood monocytes/100 leukocyt esOrdered By: Tess Peoples on 06-15-2022 Monocytes/100 WBC (Bld) 9.6 % 0-10 [facility] Blood platelet mean volumeOr dered By: Tess Peoples on 06-15-2022 Platelet mean volume (Bld) [Entitic vol] 8.9 fL 6.2-12.0 [facility] Determination of erythrocyte mean corpuscular volume (MCV)Ordered By: Tess Peoples on 06-15-2022 MCV (RBC) [Entitic vol] 99.0 fL 80-94 [facility] Hematocrit Auto (Bld) [Volum e fraction]Ordered By: Tess Peoples on 06-15-2022 Hematocrit (Bld) [Volume fraction] 48.6 % 40-54 [facility] - Chemistry and C hemistry - challengeOrdered By: Tess Peoples on 06-15-2022 CO2 [Moles/Vol] 25.0 mmol/L 21.0-32.0 [facility] Urea nitrogen/Creatinine [Mass ratio] 10.0 mg/mg 10-20 [facility] - Hematology and Cell countsOrdered By: Tess Peoples on 06-15-2022 Erythrocyte distribution width (RBC) [Entitic vol] 45.2 fL 35.1-43.9 [facility] Erythrocyte distribution width (RBC) [Ratio] 12.3 % 11.6-14.6 [facility] Immature granulocytes/100 WBC (Bld) 0.200 % 0.0-0.9 [facility] Comment on above: IG% - Immature Granu locytes (promyelocytes, myelocytes and metamyelocytes) > 1% indicates that a LEFT SHIFT is Present. MCH (RBC) [Entitic mass] 34.0 pg 27.0-32.0 [facility] Nucleated RBC/100 WBC (Bld) [Ratio] 0 % 0-5 [facility] MCHC Auto (RBC) [Mass/Vol]Or dered By: Tess Peoples on 06-15-2022 MCHC (RBC) [Mass/Vol] 34.4 g/dL 32-[address] [facility] No Panel InformationOrdered By: Tess Peoples on 06-15-2022 Estimated GFR (MDRD) Amer 109 mL/min >60 [facility] Comment on above: GFR Calc Estimated GFR (MDRD) Non-Af Amer 90 mL/min >60 [facility] Comment on above: Non- GFR Calc Platelets bldOrdered By: Ale Peoples on 06-15-2022 Platelets (Bld) [#/Vol] 251 10*3/uL 150-450 [facility] Serum or plasma calcium adilene urement (mass/volume)Ordered By: Tess Peoples on 06-15-2022 Calcium [Mass/Vol] 9.4 mg/dL 8.5-10.1 [facility] Serum or plasma creatinine m easurement (mass/volume)Ordered By: Tess Peoples on 06-15-2022 Creatinine [Mass/Vol] 0.90 mg/dL 0.70-1.[address] [facility] Comment on above: The validity of the calculated GFR & GFRAA in patients over 70 years has not been determined. Clinical correlation is essential. Serum or plasma urea nitroge n measurement (mass/volume)Ordered By: Tess Peoples on 06-15-2022 Urea nitrogen [Mass/Vol] 9 mg/dL 7-18 [facility] Thin prep Papanicolaou smear with manual screeningOrdered By: Tess Peoples on 06-15-2022 Thin prep Papanicolaou smear with manual screening 7 5-15 [facility] CNOVon 03-15-2017 CNOV Office Visit (UCWSTR) OMERO MERCER JR ([id number]) 1955 MDate Time Provider Department03/15/17 4:15 PM [facility] During your visit today, we recorded the following information about you: Temperature Pulse Respiration Blood pressure 97.6 degrees 64/minute 16/minute 130/82 Weight 78.6 kgLencho Villasenor MD 03/16/2017 9:02 AM SignedPatient presents with:Right Knee Pain: x 1 month but the last few days it is getting worseHPI:Knee pain: Duration: 1 month, worsening Location: Right knee outer side Character: Hitting pain Radiation: No. Aggravating: standing and walking Relieving: Tried a wrap Pain relievers: aleve Associated: Has started to buckle sometimes Pertinent negatives: Denies known injury, locking, swelling, feverPAST MEDICAL HISTORYDiagnosis Date- Heart valve disorderPAST SURGICAL HISTORYNo date: FINGER AMPUTATION (SPECIFY DIGIT) HX Left Comment: distal left 3rd fingerMEDICATIONS:No prescriptions on file.ALLERGIES:ALLERGIE SNo Known AllergiesVITALS:BP 130/82 Pulse 64 Temp 36.4 ?C (97.6 ?F) (Tympanic) Resp 16 Wt 78.6 kg(173 lb 3.2 oz)PHYSICAL EXAM: GEN: pleasant, no acute distress, alert. Unable to pronounce multipleconsonant sounds. HEENT: PERRL, EOMI, MMM HEART: regular rate, regular rhythm, no murmurs LUNGS: clear to auscultation, no wheezes or crackles, no increased WOB EXT: no clubbing, no cyanosis, no edema, remote amputation left distalmiddle finger. KNEE: right. No erythema, effusion, or deformity. FROM with pain on fullextension. No crepitus. Lateral joint line and superior lateral patellartenderness. Stable to varus and valgus strain but lateral knee pain with varusstrain. Negative anterior drawer test. Negative posterior drawer test.Limping gait.ASSESSMENT/PLAN:1. Acute pain of right knee - ICD9: 719.46, ICD10: M25.561- XR KNEE AP/LAT RT-no fracture or lytic lesionSuspect lateral meniscus or collateral ligament injury.ELISA wrap applied- CONSULT TO ORTHOPAEDICS- MELOXICAM 15 MG TABLET, may use ibuprofen insteadLencho Villasenor, MDReferring Provider: SELF [[id number]]Allergies As of Date: 03/15/2017(No Known Allergies)Date Reviewed: 03/15/2017Reviewed by: Amparo Garcia LPN - Fully AssessedReason for Visit: Right Knee Pain [1209] Cmt: x 1 month but the last few days it is getting worsePrimary Visit Diagnosis:Acute pain of right knee [M25.561]Order(s):XR KNEE AP/LAT RT [[id number]] Order #: [id number] FUTURE CONSULT TO ORTHOPAEDICS [9026] Order #: [id number]: 1 meloxicam (MOBIC) 15 mg tabletTake 1 tablet by mouth once daily for 20 days. With food.Disp: 20 tabletRfl: 0Prescriptions as of 03/15/2017 Sig: MELOXICAM 15 MG TABLET Take 1 tablet by mouth once d*Problem List As Of Date: 03/15/2017(None)Prescri ptions ordered this encounter Disp Refills Start End MELOXICAM 15 MG TABLET 20 t* 0 03/15/2017 04/04/2017 Route: ORAL Sig: Take 1 tablet by mouth once daily for 20 days. With food. Status:Closed by LENCHO VILLASENOR MD on 03/16/17 [facility] PROGRESSon 03-15-2017 PROGRESS HNO ID: [id number]: Karen Ho RtService: (none)Author Type: (none)Type: Progress NotesFiled: 03/15/2017 4:52 PMNote Text: Radiology Service Progress NotePATIENT NAME: Omero Mercer OF SERVICE: March 15, 2017TIME: 4:51 PMPATIENT IDENTITY VERIFICATION COMPLETED USING TWO (2) METHODS: Patientconfirmed name verbally and Date of .PATIENT GENDER DATA: MalePATIENT RELEVANT IMPLANT DATA REVIEWED: Not ApplicableRADIOLOGY DEPARTMENT: General X-ray: Exam(s) Completed: Lower ExtremityX-Ray(s): Knee, AP / LAT Right and Wt. Bearing:PERIPHERAL IV DATA: Not applicableSIGNED BY: Karen Ho [facility] Vegasugu2016 4:51 PM [facility] PROGRESS HNO ID: [id number]: Lencho CapellanelService: (none)Author Type: PhysicianType: Progress NotesFiled: 03/16/2017 9:02 AMNote Text:Patient presents with:Right Knee Pain: x 1 month but the last few days it is getting worseHPI:Knee pain: Duration: 1 month, worsening Location: Right knee outer side Character: Hitting pain Radiation: No. Aggravating: standing and walking Relieving: Tried a wrap Pain relievers: aleve Associated: Has started to buckle sometimes Pertinent negatives: Denies known injury, locking, swelling, feverPAST MEDICAL HISTORYDiagnosis Date- Heart valve disorderPAST SURGICAL HISTORYNo date: FINGER AMPUTATION (SPECIFY DIGIT) HX Left Comment: distal left 3rd fingerMEDICATIONS:No prescriptions on file.ALLERGIES:ALLERGIE SNo Known AllergiesVITALS:BP 130/82 Pulse 64 Temp 36.4 ?C (97.6 ?F) (Tympanic) Resp 16 Wt78.6 kg (173 lb 3.2 oz)PHYSICAL EXAM: GEN: pleasant, no acute distress, alert. Unable to pronounce multipleconsonant sounds. HEENT: PERRL, EOMI, MMM HEART: regular rate, regular rhythm, no murmurs LUNGS: clear to auscultation, no wheezes or crackles, no increased WOB EXT: no clubbing, no cyanosis, no edema, remote amputation left distalmiddle finger. KNEE: right. No erythema, effusion, or deformity. FROM with pain onfull extension. No crepitus. Lateral joint line and superior lateralpatellar tenderness. Stable to varus and valgus strain but lateral kneepain with varus strain. Negative anterior drawer test. Negativeposterior drawer test. Limping gait.ASSESSMENT/PLAN:1. Acute pain of right knee - ICD9: 719.46, ICD10: M25.561- XR KNEE AP/LAT RT-no fracture or lytic lesionSuspect lateral meniscus or collateral ligament injury.ELISA wrap applied- CONSULT TO ORTHOPAEDICS- MELOXICAM 15 MG TABLET, may use ibuprofen insteadLencho Villasenor MD Normal [facility] XR KNEE AP/LATon 03-15-2017 XR KNEE AP/LAT * * *Final Report* * *DATE OF EXAM: Mar 15 2017 4:52PM WOX 2805 - XR KNEE AP/LAT - RIGHT / REASON: Pain in right knee * * * * Physician Interpretation * * * * EXAM TITLE: XR KNEE AP/LAT RDATE: 03/15/2017COMPARISON: None.CLINICAL INDICATION/HISTORY: PainTECHNIQUE: AP and lateral views of the right knee are presented.FINDINGS:No fractures or subluxations are noted.The joint spaces are well preserved.There is no evidence of joint effusion.The mineralization of the bones is normal.There is no significant soft tissue swelling.IMPRESSION: Negative right knee.[facility] Clerk: REVA Transcribe Date/Time: Mar 15 2017 6:37PDictated by : JOSEPH YANG MDThis examination was interpreted and the report reviewed and electronically signed by: JOSEPH YANG MD on Mar 15 2017 6:38PM EST Normal [facility] Vital Signs Date Time Vital Sign Value Performing Clinician Miguel agarwal 01-20-2025 12:35-0400 Body temperature 99.8 [degF] [facility] Work Phone[facility] 01-20-2025 12:35-0400 Diastolic blood pressure 65 mm[Hg] [facility] Work Phone: 8(492)990-016785 [place] [address] 01-20-2025 12:35-0400 Heart rate 66 /min [facility] Work Phone: 5(522)787-272785 [place] [address] 01-20-2025 12:35-0400 Respiratory rate 18 /min [facility] Work Phone: 2(212)060-938385 [place] [address] 01-20-2025 12:35-0400 SaO2% (BldA) [Mass fraction] 96 % [facility] Work Phone: 2(344)163-412185 [place] [address] 01-20-2025 12:35-0400 Systolic blood pressure 103 mm[Hg] [facility] Work Phone: 9(013)955-251185 [place] [address] 01-20-2025 12:25-0400 Inhaled oxygen flow rate 2 L/min [facility] Work Phone: 5(999)141-539185 [place] [address] 01-20-2025 11:22-0400 Body height 162.56 cm [facility] Work Phone: 6(576)807-977185 [place] [address] 01-20-2025 11:22-0400 Body mass index (BMI) [Ratio] 40.8 kg/m2 [facility] Work Phone: 5(635)358-827285 [place] [address] 01-20-2025 11:22-0400 Body weight 108 kg [facility] Work Phone: 1(354)265-317485 [place] [address] 12-30-2024 07:59-0400 Body height 172.72 cm [facility] Work Phone: 4(835)765-265685 [place] [address] 12-30-2024 07:59-0400 Body mass index (BMI) [Ratio] 36.8 kg/m2 [facility] Work Phone: 0(398)825-065585 [place] [address] 12-30-2024 07:59-0400 Body temperature 97.3 [degF] [facility] Work Phone: 0(891)001-725685 [place] [address] 12-30-2024 07:59-0400 Body weight 109.76 kg [facility] Work Phone: 9(499)073-556985 [place] [address] 12-30-2024 07:59-0400 Diastolic blood pressure 64 mm[Hg] [facility] Work Phone: 4(087)791-162785 [place] [address] 12-30-2024 07:59-0400 Heart rate 63 /min [facility] Work Phone: 8(600)722-164385 [place] [address] 12-30-2024 07:59-0400 Respiratory rate 18 /min [facility] Work Phone: 7(880)828-187185 [place] [address] 12-30-2024 07:59-0400 SaO2% (BldA) [Mass fraction] 95 % [facility] Work Phone: 7(814)182-297085 [place] [address] 12-30-2024 07:59-0400 Systolic blood pressure 106 mm[Hg] [facility] Work Phone: 4(261)738-062285 [place] [address] 12-01-2024 07:38-0400 Body mass index (BMI) [Ratio] 36 kg/m2 [facility] Work Phone: 1(729)684-057685 [place] [address] 12-01-2024 07:38-0400 Body weight 107.5 kg [facility] Work Phone: 5(410)652-239385 [place] [address] 12-01-2024 07:38-0400 Diastolic blood pressure 67 mm[Hg] [facility] Work Phone: 3(481)507-100085 [place] [address] 12-01-2024 07:38-0400 Heart rate 68 /min [facility] Work Phone: 6(198)172-819085 [place] [address] 12-01-2024 07:38-0400 Respiratory rate 20 /min [facility] Work Phone: 3(835)708-494985 [place] [address] 12-01-2024 07:38-0400 Systolic blood pressure 121 mm[Hg] [facility] Work Phone: 3(485)957-268185 [place] [address] 11-05-2024 11:13-0400 Body mass index (BMI) [Ratio] 37.7 kg/m2 [facility] Work Phone: 5(672)713-526385 [place] [address] 11-05-2024 11:13-0400 Body weight 112.54 kg [facility] Work Phone: 3(057)028-979685 [place] [address] 11-05-2024 11:13-0400 Diastolic blood pressure 69 mm[Hg] [facility] Work Phone: 9(527)403-847785 [place] [address] 11-05-2024 11:13-0400 Heart rate 63 /min [facility] Work Phone: 2(470)549-557585 [place] [address] 11-05-2024 11:13-0400 Respiratory rate 16 /min [facility] Work Phone: 7(286)403-723185 [place] [address] 11-05-2024 11:13-0400 SaO2% (BldA) [Mass fraction] 93 % [facility] Work Phone: 4(571)034-775185 [place] [address] 11-05-2024 11:13-0400 Systolic blood pressure 115 mm[Hg] [facility] Work Phone: 0(532)313-863485 [place] [address] 09-19-2023 14:11-0500 Body height 172.72 cm [facility] Work Phone: 9(917)549-957785 [place] [address] 09-19-2023 14:11-0500 Body mass index (BMI) [Ratio] 32.5 kg/m2 [facility] Work Phone: 9(608)981-817485 [place] [address] 09-19-2023 14:11-0500 Body weight 97.06 kg [facility] Work Phone: 3(944)141-813585 [place] [address] 09-19-2023 14:11-0500 Diastolic blood pressure 66 mm[Hg] [facility] Work Phone: 7(785)353-665985 [place] [address] 09-19-2023 14:11-0500 Heart rate 80 /min [facility] Work Phone: 4(952)535-451685 [place] [address] 09-19-2023 14:11-0500 Respiratory rate 18 /min [facility] Work Phone: 5(255)707-763285 [place] [address] 09-19-2023 14:11-0500 Systolic blood pressure 115 mm[Hg] [facility] Work Phone: 0(306)121-599585 [place] [address] 07-05-2023 13:51-0500 Body mass index (BMI) [Ratio] 34.4 kg/m2 [facility] Work Phone: 9(562)787-796185 [place] [address] 07-05-2023 13:51-0500 Body weight 102.96 kg [facility] Work Phone: 8(186)136-130385 [place] [address] 07-05-2023 13:51-0500 Diastolic blood pressure 78 mm[Hg] [facility] Work Phone: 0(640)051-847385 [place] [address] 07-05-2023 13:51-0500 Heart rate 74 /min [facility] Work Phone: 5(980)665-212885 [place] [address] 07-05-2023 13:51-0500 Respiratory rate 18 /min [facility] Work Phone: 6(666)077-137485 [place] [address] 07-05-2023 13:51-0500 Systolic blood pressure 151 mm[Hg] [facility] Work Phone: 6(367)294-466185 [place] [address] 06-12-2023 11:18-0500 Diastolic blood pressure 72 mm[Hg] [facility] Work Phone: 3(124)265-401385 [place] [address] 06-12-2023 11:18-0500 Heart rate 83 /min [facility] Work Phone: 6(947)385-081985 [place] [address] 06-12-2023 11:18-0500 Respiratory rate 19 /min [facility] Work Phone: 8(637)892-426485 [place] [address] 06-12-2023 11:18-0500 SaO2% (BldA) [Mass fraction] 98 % [facility] Work Phone: 8(030)234-526785 [place] [address] 06-12-2023 11:18-0500 Systolic blood pressure 145 mm[Hg] [facility] Work Phone: 6(007)010-319985 [place] [address] 06-12-2023 08:14-0500 Body height 172.72 cm [facility] Work Phone: 2(653)553-837785 [place] [address] 06-12-2023 08:14-0500 Body mass index (BMI) [Ratio] 30.8 kg/m2 [facility] Work Phone: 0(632)934-201685 [place] [address] 06-12-2023 08:14-0500 Body temperature 97.4 [degF] [facility] Work Phone: 2(051)609-655385 [place] [address] 06-12-2023 08:14-0500 Body weight 92 kg [facility] Work Phone: 2(299)621-958585 [place] [address] 06-06-2023 10:35-0400 Body height 172.72 cm [facility] Work Phone: 4(824)374-620485 [place] [address] 06-06-2023 10:35-0400 Body mass index (BMI) [Ratio] 33 kg/m2 [facility] Work Phone: 3(953)608-996685 [place] [address] 06-06-2023 10:35-0400 Body weight 98.42 kg [facility] Work Phone: 3(390)581-936985 [place] [address] 06-06-2023 10:35-0400 Diastolic blood pressure 80 mm[Hg] [facility] Work Phone: 1(130)294-800085 [place] [address] 06-06-2023 10:35-0400 Heart rate 93 /min [facility] Work Phone: 0(708)059-188285 [place] [address] 06-06-2023 10:35-0400 Respiratory rate 18 /min [facility] Work Phone: 2(594)192-858585 [place] [address] 06-06-2023 10:35-0400 Systolic blood pressure 114 mm[Hg] [facility] Work Phone: 7(003)403-085385 [place] [address] 05-24-2023 13:14-0400 Body height 172.72 cm [facility] Work Phone: 7(275)061-973585 [place] [address] 05-24-2023 13:14-0400 Body mass index (BMI) [Ratio] 33.1 kg/m2 [facility] Work Phone: 9(277)912-785185 [place] [address] 05-24-2023 13:14-0400 Body temperature 97.2 [degF] [facility] Work Phone: 2(821)860-365085 [place] [address] 05-24-2023 13:14-0400 Body weight 98.88 kg [facility] Work Phone: 7(474)303-258485 [place] [address] 05-24-2023 13:14-0400 Heart rate 78 /min [facility] Work Phone: 0(008)095-621385 [place] [address] 05-24-2023 13:14-0400 Respiratory rate 20 /min [facility] Work Phone: 7(070)185-722585 [place] [address] 05-24-2023 13:14-0400 SaO2% (BldA) [Mass fraction] 98 % [facility] Work Phone: 3(000)284-701085 [place] [address] 05-03-2023 11:35-0400 Body weight 96.16 kg [facility] Work Phone: 7(616)716-894885 [place] [address] 05-03-2023 11:35-0400 Heart rate 72 /min [facility] Work Phone: 9(199)435-668285 [place] [address] 05-03-2023 11:35-0400 SaO2% (BldA) [Mass fraction] 95 % [facility] Work Phone: 9(018)687-014285 [place] [address] 04-26-2023 12:09-0400 Diastolic blood pressure 79 mm[Hg] [facility] Work Phone: 4(552)899-704385 [place] [address] 04-26-2023 12:09-0400 Heart rate 76 /min [facility] Work Phone: 7(373)037-780285 [place] [address] 04-26-2023 12:09-0400 Respiratory rate 27 /min [facility] Work Phone: 3(164)187-407785 [place] [address] 04-26-2023 12:09-0400 SaO2% (BldA) [Mass fraction] 92 % [facility] Work Phone: 6(691)129-941585 [place] [address] 04-26-2023 12:09-0400 Systolic blood pressure 143 mm[Hg] [facility] Work Phone: 4(292)671-186885 [place] [address] 04-26-2023 09:37-0400 Body height 172.72 cm [facility] Work Phone: 6(249)678-609785 [place] [address] 04-26-2023 09:37-0400 Body mass index (BMI) [Ratio] 36.3 kg/m2 [facility] Work Phone: 8(299)695-927085 [place] [address] 04-26-2023 09:37-0400 Body temperature 98 [degF] [facility] Work Phone: 6(207)532-806585 [place] [address] 04-26-2023 09:37-0400 Body weight 108.4 kg [facility] Work Phone: 7(564)126-816685 [place] [address] 02-12-2023 07:23-0400 Body mass index (BMI) [Ratio] 32.3 kg/m2 [facility] Work Phone: 4(804)495-342285 [place] [address] 02-12-2023 07:23-0400 Body temperature 97.6 [degF] [facility] Work Phone: 1(215)430-804685 [place] [address] 02-12-2023 07:23-0400 Body weight 96.61 kg [facility] Work Phone: 9(893)277-787985 [place] [address] 02-12-2023 07:23-0400 Diastolic blood pressure 82 mm[Hg] [facility] Work Phone: 5(931)285-869885 [place] [address] 02-12-2023 07:23-0400 Heart rate 81 /min [facility] Work Phone: 5(575)459-832985 [place] [address] 02-12-2023 07:23-0400 Respiratory rate 20 /min [facility] Work Phone: 9(497)279-920685 [place] [address] 02-12-2023 07:23-0400 SaO2% (BldA) [Mass fraction] 96 % [facility] Work Phone: 4(901)209-980085 [place] [address] 02-12-2023 07:23-0400 Systolic blood pressure 155 mm[Hg] [facility] Work Phone: 7(727)758-104885 [place] [address] 01-22-2023 09:54-0400 SaO2% (BldA) [Mass fraction] 94 % [facility] Work Phone: 5(217)742-823585 [place] [address] 01-22-2023 09:31-0400 Inhaled oxygen flow rate 2 L/min [facility] Work Phone: 1(282)515-811785 [place] [address] 01-09-2023 12:45-0400 Body temperature 98.1 [degF] [facility] Work Phone: 2(972)568-156385 [place] [address] 01-09-2023 12:45-0400 Diastolic blood pressure 64 mm[Hg] [facility] Work Phone: 9(004)738-011685 [place] [address] 01-09-2023 12:45-0400 Heart rate 80 /min [facility] Work Phone: 9(124)370-171685 [place] [address] 01-09-2023 12:45-0400 Respiratory rate 18 /min [facility] Work Phone: 3(827)778-073685 [place] [address] 01-09-2023 12:45-0400 SaO2% (BldA) [Mass fraction] 94 % [facility] Work Phone: 6(022)519-027585 [place] [address] 01-09-2023 12:45-0400 Systolic blood pressure 130 mm[Hg] [facility] Work Phone: 8(443)280-131785 [place] [address] 01-09-2023 10:44-0400 Inhaled oxygen flow rate 2 L/min [facility] Work Phone: 9(363)901-006885 [place] [address] 01-08-2023 18:47-0400 Body height 172.72 cm [facility] Work Phone: 0(565)416-301485 [place] [address] 01-08-2023 18:47-0400 Body mass index (BMI) [Ratio] 32.4 kg/m2 [facility] Work Phone: 3(277)213-851885 [place] [address] 01-08-2023 18:47-0400 Body weight 96.9 kg [facility] Work Phone: 9(024)190-656485 [place] [address] 12-27-2022 09:46-0400 Body mass index (BMI) [Ratio] 33 kg/m2 [facility] Work Phone: 1(861)412-531585 [place] [address] 12-27-2022 09:46-0400 Body temperature 97.6 [degF] [facility] Work Phone: 6(963)287-987885 [place] [address] 12-27-2022 09:46-0400 Body weight 98.65 kg [facility] Work Phone: 4(260)834-854185 [place] [address] 12-27-2022 09:46-0400 Diastolic blood pressure 89 mm[Hg] [facility] Work Phone: 1(929)749-242785 [place] [address] 12-27-2022 09:46-0400 Heart rate 68 /min [facility] Work Phone: 7(705)922-798985 [place] [address] 12-27-2022 09:46-0400 Respiratory rate 19 /min [facility] Work Phone: 9(950)266-641785 [place] [address] 12-27-2022 09:46-0400 SaO2% (BldA) [Mass fraction] 96 % [facility] Work Phone: [facility] 12-27-2022 09:46-0400 Systolic blood pressure 156 mm[Hg] [facility] Work Phone: [facility] 10-05-2022 14:19-0500 Body height 172.72 cm [facility] 10-05-2022 14:19-0500 Body mass index (BMI) [Ratio] 25.5 kg/m2 [facility] 10-05-2022 14:19-0500 Body temperature 98.3 [degF] [facility] 10-05-2022 14:19-0500 Body weight 76.2 kg [facility] 10-05-2022 14:19-0500 Diastolic blood pressure 82 mm[Hg] [facility] 10-05-2022 14:19-0500 Heart rate 74 /min [facility] 10-05-2022 14:19-0500 Respiratory rate 14 /min [facility] 10-05-2022 14:19-0500 SaO2% (BldA) [Mass fraction] 98 % [facility] 10-05-2022 14:19-0500 Systolic blood pressure 159 mm[Hg] [facility] 06-27-2022 09:18-0500 Body height 172.72 cm [facility] 06-27-2022 09:18-0500 Body mass index (BMI) [Ratio] 25.7 kg/m2 [facility] 06-27-2022 09:18-0500 Body temperature 98.1 [degF] [facility] 06-27-2022 09:18-0500 Body weight 76.65 kg [facility] 06-27-2022 09:18-0500 Heart rate 101 /min [facility] 06-27-2022 09:18-0500 Respiratory rate 16 /min [facility] 06-27-2022 09:18-0500 SaO2% (BldA) [Mass fraction] 96 % [facility] 05-17-2022 18:17-0400 Body height 172.72 cm [facility] Work Phone: 05-17-2022 18:17-0400 Body mass index (BMI) [Ratio] 29.4 kg/m2 [facility] Work Phone: 05-17-2022 18:17-0400 Body temperature 98.7 [degF] [facility] Work Phone: 05-17-2022 18:17-0400 Body weight 87.7 kg [facility] Work Phone: 05-17-2022 18:17-0400 Diastolic blood pressure 94 mm[Hg] [facility] Work Phone: 05-17-2022 18:17-0400 Heart rate 92 /min [facility] Work Phone: 05-17-2022 18:17-0400 Respiratory rate 16 /min [facility] Work Phone: 05-17-2022 18:17-0400 SaO2% (BldA) [Mass fraction] 96 % [facility] Work Phone: 05-17-2022 18:17-0400 Systolic blood pressure 168 mm[Hg] [facility] Work Phone: Encounters Encounter Date Encounter Type Care Provider Facility Start: 01-20-2025 Non-patient / Non-visit Cordell Celestin DO -[facility] Start: 01-20-2025 End: 01-20-2025 Admission to same day surgery center Cordell Celestin DO -Endoscopy Work Phone: Start: 01-20-2025 End: 01-20-2025 ambulatory [facility] Work Phone: [facility] Work Phone: Start: 01-14-2025 ambulatory [facility] Start: 01-14-[address] Chidi Pizarro DO -Physical Therapy Work Phone: Start: 12-30-2024 End: 12-30-2024 Patient encounter procedure Jess Rodríguez DEVELOPMENT EDITOR-C -[facility] Work Phone: Start: 12-30-2024 End: 12-30-2024 ambulatory [facility] Work Phone: [facility] Work Phone: Start: 12-23-[address] Chidi Pizarro DO -Physical Therapy Work Phone: Start: 12-02-2024 End: 12-02-2024 Patient encounter procedure Fany Vigil DEVELOPMENT EDITOR-C -[facility] Work Phone: Start: 12-02-2024 End: 12-02-2024 ambulatory [facility] Facility:[facility] Start: 11-21-2024 End: 11-21-[address] Herbert Pizarro DO -[facility] Work Phone: Start: 11-21-2024 End: 11-21-2024 ambulatory [facility] Facility:[facility] Start: 11-12-2024 ambulatory [facility] Facility:[facility] Start: 11-05-2024 End: 11-05-2024 Patient encounter procedure Barbara Dove DEVELOPMENT EDITOR-C -[facility] Work Phone: Start: 11-05-2024 End: 11-05-2024 ambulatory Barbara Dove Facility:[facility] Start: 07-08-2024 ambulatory Barbara Dove Facili ty:[facility] Start: 09-19-2023 End: 09-19-2023 Patient encounter procedure [facility] Work Phone: [facility] Work Phone: Start: 09-18-2023 End: 09-18-2023 ambulatory [facility] Work Phone: [facility] Work Phone: Start: 09-18-2023 End: 09-18-2023 Patient encounter procedure [facility] Work Phone: [facility] Work Phone: Start: 07-11-2023 Non-patient / Non-visit [facility] Work Phone: [facility] Start: 07-11-2023 End: 07-11-2023 ambulatory [facility] Work Phone: [facility] Work Phone: Start: 07-11-2023 End: 07-11-2023 Patient encounter procedure [facility] Work Phone: [facility] Work Phone: Start: 07-05-2023 End: 07-05-2023 Patient encounter procedure [facility] Work Phone: [facility] Work Phone: Start: 06-12-2023 End: 06-12-2023 Emergency department patient visit [facility] Work Phone: [facility] Work Phone: Start: 06-06-2023 End: 06-06-2023 ambulatory [facility] Work Phone: [facility] Work Phone: Start: 06-06-2023 End: 06-06-2023 Patient encounter procedure [facility] Work Phone: [facility] Work Phone: Start: 06-06-2023 End: 06-06-2023 Patient encounter procedure [facility] Work [facility]: Start: 05-24-2023 End: 05-24-2023 ambulatory [facility] Work Phone: [facility] Work Phone: Start: 05-24-2023 End: 05-24-2023 Patient encounter procedure [facility] Work Phone: [facility]-Pulmonary Medicine [facility] Work Phone: Start: 05-04-2023 Non-patient / Non-visit [facility] Work Phone: [facility] Start: 05-03-2023 End: 05-03-2023 Patient encounter procedure [facility] Work Phone: [facility]/Neurology Work Phone: Start: 04-26-2023 End: 04-26-2023 Emergency department patient visit [facility] Work Phone: [facility] Work Phone: Start: 02-12-2023 End: 02-12-2023 Patient encounter procedure [facility] Work Phone: Start: 01-22-2023 End: 01-22-2023 Patient encounter procedure [facility] Work Phone: [facility] Work Phone: Start: 01-09-2023 Non-patient / Non-visit [facility] Work Phone: [facility] Start: 01-08-2023 Non-patient / Non-visit [facility] Work Phone: [facility] Start: 01-08-2023 End: 01-09-2023 Evaluation and management of inpatient [facility] Start: 01-08-2023 End: 01-09-2023 observation encounter [facility] Work Phone: [facility] Work Phone: Start: 01-08-2023 Non-patient / Non-visit [facility] Work Phone: [facility] Start: 01-03-2023 End: 01-03-2023 Non-patient / Non-visit [facility] Work Phone: [facility] Work Phone: Start: 12-27-2022 End: 12-27-2022 Patient encounter procedure [facility] Work Phone: [facility] Start: 10-05-2022 End: 10-05-2022 Emergency department patient visit [facility] Start: 09-28-2022 End: 09-28-2022 ambulatory [facility] Work Phone: Start: 09-28-2022 End: 09-28-2022 Patient encounter procedure [facility] Start: 06-27-2022 End: 06-27-2022 Emergency department patient visit [facility] Start: 06-16-2022 End: 06-16-2022 ambulatory [facility] Work Phone: Start: 06-16-2022 End: 06-16-2022 Patient encounter procedure [facility] Start: 06-15-2022 End: 06-15-2022 ambulatory [facility] Work Phone: Start: 06-15-2022 End: 06-15-2022 Patient encounter procedure [facility] Start: 05-17-2022 End: 05-17-2022 Emergency department patient visit [facility] Start: 03-15-2017 End: 03-15-2017 Ambulatory LENCHO VILLASENOR [facility] Procedures Date Procedure Procedure Detail Performing Clinician Start: 01-20-2025 Colonoscopy [facility] Work Phone: Start: 07-11-2023 Cardiovascular stres s test using pharmacologic stress agent [facility] Work Phone: Start: 06-12-2023 Plain chest X-ray [facility] Work Phone: Start: 05-24-2023 Plain chest X-ray [facility] Work Phone: Start: 04-26-2023 SARS-CoV-2 & FLU Ant igen (Rapid) [facility] Work Phone: Start: 04-26-2023 Plain chest X-ray [facility] Work Phone: Start: 01-09-2023 Legionella pneumophi la antigen assay [facility] Work Phone: Start: 01-09-2023 Streptococcus pneumo niae Antigen (M [facility] Work Phone: Start: 01-08-2023 Plain chest X-ray [facility] Work Phone: Start: 01-08-2023 Lap Robotic Inguinal Hernia (Left) [facility] Work Phone: Start: 10-05-2022 X-ray of chest posteroanterior view Start: 09-28-2022 Plain x-ray of pelvi s and lower extremity Start: 09-28-2022 Radiologic examinati on of knee Start: 09-28-2022 X-ray of lumbar spin e, two or three views Start: 06-27-2022 CT of chest without contrast Start: 06-16-2022 Plain chest X-ray Plan of Treatment Date Care Activity Detail Author Start: 01-20-2025 ambulatory [facility] Start: 01-20-2025 Patient discharge [facility] Start: 11-21-2024 Patient referral [facility] Work Phone: Start: 06-12-2023 [facility] Start: 06-12-2023 [facility] Start: 05-24-2023 Patient referral [facility] Work Phone: Start: 04-26-2023 Gas panel - Venous blood [facility] Start: 04-26-2023 [facility] Start: 01-09-2023 Patient discharge [facility] Start: 01-08-2023 Following clinical pathway protocol [facility] Start: 01-08-2023 Application of intermittent pneumatic compression device [facility] Start: 01-08-2023 Elevation of head of bed [facility] Start: 01-08-2023 Patient education [facility] Start: 01-08-2023 Referral to service [facility] Start: 01-08-2023 End: 01-08-2023 [facility] Start: 01-08-2023 Consultation [facility] Start: 01-08-2023 Ambulation without limitation [facility] Start: 01-08-2023 Incentive spirometry [facility] Start: 01-08-2023 Admission procedure [facility] Start: 01-08-2023 Anesthesia hernia repair lower abdomen nos ANESTH REPAIR OF HERNIA [facility] Start: 01-08-2023 Laparoscopy surg rpr initial inguinal hernia LAP ING HERNIA REPAIR INIT [facility] Start: 01-08-2023 Inhalation therapy procedure [facility] Start: 01-08-2023 Patient referral to dietitian [facility] Start: 10-05-2022 Emergency department visit limited/minor prob EMR DPT VST MAYX REQ PHY/QHP [facility] Start: 05-17-2022 Blood chemistry [facility] Work Phone: Anion gap measurement [facility] Work Phone: Blood chemistry [facility] BUN/Creatinine ratio [facility] Work Phone: Calcium [Mass/volume ] in Serum or Plasma [facility] Work Phone: Carbon dioxide, tota l [Moles/volume] in Serum or Plasma [facility] Work Phone: CBC W Auto Different ial panel - Blood [facility] Chloride [Moles/volu me] in Serum or Plasma [facility] Work Phone: Creatinine [Moles/vo lume] in Serum or Plasma [facility] Work Phone: Exercise tolerance test [facility] Glucose [Mass/volume ] in Serum or Plasma [facility] Work Phone: Hematocrit [Volume Fraction] of Blood [facility] Work Phone: Hemoglobin [Mass/vol ume] in Blood [facility] Work Phone: Hepatic function panel [facility] Leukocytes [#/volume ] in Blood [facility] Work Phone: Lipid 1996 panel - S cash or Plasma [facility] Lipid 1995 panel - S cash or Plasma [facility] Lipid 1995 panel - S cash or Plasma [facility] Mean corpuscular hemoglobin concentration determination [facility] Work Phone: Mean corpuscular hemoglobin determination [facility] Work Phone: Measurement of renal function [facility] Work Phone: Measurement of respi ratory function [facility] Neutrophil count [facility] Work Phone: Neutrophil percent differential count [facility] Work Phone: NM Heart Views W str ess and W radionuclide IV [facility] Patient Education [facility] Work Phone: Patient referral [facility] Work Phone: Platelets [#/volume] in Blood [facility] Work Phone: Polysomnography [facility] Potassium [Moles/vol ume] in Serum or Plasma [facility] Work Phone: Red blood cell count [facility] Work Phone: Red cell distributio n width determination [facility] Work Phone: Sodium [Moles/volume ] in Serum or Plasma [facility] Work Phone: Urea nitrogen [Mass/volume] in Serum or Plasma [facility] Work Phone: [facility] Immunizations Immunization Date Immunization Notes Care Provider Fa iesha 10-06-2021 [facility] Work Phone: [facility] Payers Date Payer Category Payer Self-pay [id number] 2023 Unknown [id number] 2023 Unknown [id number] Medicare [id number] Unknown ANTHEM [id number] Unknown [id number] Unknown [facility] [employer] [id number] Unknown [id number] Unknown [facility] MCRDUAL COMP HMO [id number] Unknown [facility] MCR[employer]AL COMPLETE [id number] Unknown [id number] 2.16.8 [id number] Unknown [id number] 2.16.8 [id number] Unknown [id number] 2.16.8 [id number] Unknown [id number] 2.16.8 [id number] Unknown [id number] 2.16.8 [id number] Unknown [id number] 2.16.8 [id number] Unknown [id number] 2.16.8 [id number] Unknown [id number] 2.16.8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 athletic support can provide more comfort. Pain medications may cause nausea, you should typically eat light foods as you take your pain medications. Pain medications may also cause constipation. If you have difficulty with this, discuss with your doctor. Please call if there is extreme testicular pain [phone] Dressing / Incision Call your doctor if your incision/area has: Continuous Slow Oozing, Sudden Increased Bleeding, Increased Pain/ Swelling, Increased Redness and Foul Smelling Discharge Call your doctor if you observe: Fever of 101 or Higher and Inability to urinate Suture Line Care: Avoid Pulling/Pushing and Avoid Pinching/Bending Remove Dressing in: 2 days (Remove clear bandages in 2 days, remove Steri- Stripsin 7 to 10 days.) Follow Up Care Please Follow Up With: Derrell Toribio MD When: Please call to schedule 1 week follow up appointment. [phone] Test Results: Test results from this visit will be discussed in further detail at your follow- up appointment, if applicable. Discharge Plan Admission Attending Provider: Derrell Toribio [facility] Orders/Prescriptions Prescriptions: New oxycodone 10 mg tablet 5 - 10 mg PO Q6H PRN (Reason: pain) 5 Days Qty: 20 0RF No Action ibuprofen 600 mg tablet 600 mg PO Q6H PRN PRN (Reason: pain) Qty: 20 0RF cetirizine 10 mg tablet 10 mg PO DAILY Label Comments: TAKE 1 TABLET BY MOUTH EVERY DAY metoprolol succinate 50 mg tablet extended release 24 hr 50 mg PO DAILY Label Comments: TAKE 1 TABLET BY MOUTH EVERY DAY amlodipine 10 mg tablet 10 mg PO DAILY Label Comments: TAKE 1 TABLET BY MOUTH EVERY DAY pantoprazole 40 mg tablet,delayed release (DR/EC) 40 mg PO DAILY Label Comments: TAKE 1 TABLET BY MOUTH EVERY DAY albuterol sulfate 90 mcg/actuation HFA aerosol inhaler 1 - 2 puff INHALATION PRN PRN (Reason: Wheezing) Label Comments: Inhale 2 inhalations every 4-6 hours as needed for shortness of breath/cough [facility] / [facility] - Disposition Disposition (needs filled in before D/C Order can be placed): Home, Self Care 01/08/23 1512<Electronically signed by Derrell Toribio MD>Derrell Toribio MD CC: [facility] ~ Signed [facility] Work Phone: [phone]) [phone] Procedure [facility] 01-08-2023 History and physical note Author Dr. Torib[facility] January 08, 2023 12:46pm Note Date/Time January 08, 2023 12:46 pm [facility] Medical Records Department [address] [place] [address] History & Physical Exam 01/08/23 1246 MR#: [id number] Acct: [id number] Name: OMERO MERCER Jr. Rep #:[id number] : 1955 67 From: Derrell johnson MD PCP: [facility] St atus:REG [facility] Location: [place] [address] History and Physical Date of Admission: 01/08/23 Intake Vital Signs ? 10/05/2313:19 12/27/2308:46 Height 5 ft 8 in 5 ft 8 in Weight: 168 lb 217 lb 8 oz BMI 25.5 33.0 BP 159/82 H 156/89 H Blood Pressure Location ? Rt radial Position ? Sitting Respiration 14 19 H Pulse 74 68 Pulse Source ? Monitor Temp 98.3 F 97.6 F L Temp Source Temporal Temporal Pulse Oximetry (%) 98 96 Intake Visit Reasons:?L INGUINAL HERNIA AT RISK FOR INCARCERATION Chief Complaint: inguinal hernia Allergies bee venom protein (honey bee) Allergy (Verified 10/05/22 14:20) Anaphylaxis PFSH Medical History?(Updated 12/27/22 @ 09:[address] Derrell Toribio MD) HTN (hypertension) Social History? Smoking Status:? Former smoker substance use type:? does not use HPI HPI HPI: Patient has a left inguinal hernia and is here for discussion of repair.? He says it does bother him.? He denies any nausea or vomiting or fevers or chills. ROS General General: Yes weight change; No appetite, fatigue, colon cancer, breast cancer or weakness HEENT HEENT: No difficulty swallowing, eye injury, eye surgery, swollen glands or hoarseness Endo Endocrine: No thyroid disease, diabetes mellitus, thyroid cancer, Hair loss, heat intolerance or cold intolerance Skin Skin: No rash or changing moles Breast Breast: No left breast lump, right breast lump, nipple discharge, breast pain, abnormal mammogram, abnormal US or breast enlargement Musc Musculoskeletal: Yes back problems and arthritis; No rheumatoid arthritis, gout or joint pain Cardio Cardiovascular: Yes murmur, high blood pressure and heart attack; No pacemaker, heart disease, atrial fibrillation, heart stent, palpitations, shortness of breat with exertion or chest pain Psych Psychiatric: No depression, anxiety or hearing voices Resp Respiratory: Yes shortness of breath, Yes sleep apnea, Yes cough, No COPD, No asthma, No emphysema and No wheezing Gastro Gastrointestinal: No abdominal pain, No nausea or vomiting, No diarrhea, No constipation, No blood in stool, Yes acid reflux, No hemorrhoids, No ulcers, No gallbladder problem and No black,tarry stools Van Hematologic: No blood thinners, No blood disorders, No bleeding, No anemia and No blood clots Neuro Neurologic: No system reviewed and no additional complaints, except as documented, No as per HPI, No abnormal gait, No abnormal hearing, No abnormal movements, No abnormal speech, No behavioral changes, No burning sensations, No confusion, No convulsions, No disequilibrium, No dizziness, No localized weakness, No frequent falls, No headache(s), No lack of coordination, No loss ofvision, No memory loss, No numbness, No other visual disturbances, No radicular pain, No restless legs, No sensory deficit, No syncope, No tingling, No tremor(s), No weakness and No other Exam Const General: cooperative Orientation: alert and oriented x3 HENMT Head: normal to inspection Neck Neck: normal visual inspection and full ROM Chest Chest palpation & inspection: normal inspection of the chest Resp Effort & Inspection: normal respiratory effort Auscultation: clear to auscultation bilaterally Cardio Rate: regular rate Rhythm: regular rhythm GI Inspection: non-distended Palpation: soft, hernia indirect inguinal on the left and nontender Skin General: no rashes or lesions noted Neuro General: patient alert and patient oriented x3 Extrem General: full ROM Psych Appearance: grossly normal Mental Status: mental status grossly normal Assessment and Plan Assessment and Plan (1) Left inguinal hernia: ?Status:?Acute ?Plan: Patient has a large left inguinal hernia which is reducible.? I discussed robotic assisted laparoscopic left inguinal hernia repair with mesh.? 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 I also discussed repairing the contralateral side if there is any hernia on that side.? I discussed the risks of the procedure such as bleeding, infection, injury to underlying organs.? Patient understands the risks and mesh placement and is willing to proceed. Derrell Toribio MD Pager: [facility] [address] [place] [address], [address] [place] [address] Office: I have examined the patient and the H&P has been reviewed. There are no clinicalchanges since date of exam. 01/08/23 1246 <Electronically signed by Derrell Toribio MD> Cosigner Signature (if applicable): CC: Dr. Derrell Toribio MD; [facility]~ Signed [facility] Work Phone: Consult note Author [facility] Note Date/Time January 20, 2025 11:5 0am [facility] Medical Records Department [address] [place] [address] Pre-Anesthesia Evaluation 01/20/25 1144 MR#: [id number] Acct: [id number] Name: OMERO MERCER Jr. Rep #:[id number] : 1955 69 From: Baron Richardson MD PCP: Lester Cedeño DEVELOPMENT EDITOR-C Status:REG SDC Y Race: C Location: [place] [address] ASA Classification* ASA Classification ASA Classification: 3 (hx TBI, HTN, GERD, CHRIS, oxygen use at night, asthma/COPD,dysarthric speech) Assessment & Plan Anesthesia* Anesthesia Assessment Anesthesia Assessment: Discussed sedation and/or anesthesia options, risks, benefits, and alternatives with patient/parents/legal guardian/POA. Questions invited. The patient/parents/legal guardian/POA seems to understand and agrees to proceedwith anesthesia plan. Reviewed the physical assessment, medical history, allergy history and patient home medications list prior to surgery/procedure/anesthetic and documented any changes. Performed airway and anesthesia risk assessments. Anesthesia Type Anesthesia Type: General History Source History Obtained from:: Patient and Chart Anesthesia Focused Assessment* Temperature: 98.1 F Pulse Rate: 88 Blood Pressure: 110/67 Respiratory Rate: 16 Pulse Ox: 94 Airway Assessment Mouth opens: >3 cm Mallampati Score: III Teeth Condition: Missing (Missing many) Neck Range of motion (ROM): Full ROM Labs Anesthesia Preop lab: CBC WBC 7.1 K/mm3 (4.4-11.0) 06/12/23 08:05 06/12/23 RBC 4.71 M/mm3 (4.6-6.2) 06/12/23 08:05 06/12/23 Hgb 15.4 g/dL (13.0-16.5) 06/12/23 08:05 06/12/23 Hct 47.5 % (40-54) 06/12/23 08:05 06/12/23 Plt Count 276 K/mm3 (150-450) 06/12/23 08:05 06/12/23 CHEMISTRY Potassium 4.0 mmol/L (3.5-5.1) 06/12/23 08:05 06/12/23 Sodium 137 mmol/L (136-145) 06/12/23 08:05 06/12/23 BUN 14 mg/dL (7-18) 06/12/23 08:05 06/12/23 Creatinine 0.95 mg/dL (0.70-1.30) 06/12/23 08:05 06/12/23 Glucose 85 mg/dL (74-106) 06/12/23 08:05 06/12/23 TSH 2.70 uIU/mL (0.358-3.74) 06/06/23 11:58 COAG Pre-Assessment Diagnosis/Proposed Procedure Planned Operative Procedure(s): COLONOSCOPY Anesthesia History Anesthesia History - it project lead: Anesthesia History - it project lead Hx Hospitalization No 01/16/25 14:01 Any Problems With Anesthesia No 01/16/25 14:01 Cholinesterase deficiency No 01/16/25 14:01 You/Your Family Experience No 01/16/25 14:01 fever (hyperthermia) with Relationship Recent Exposure to Contagious No 01/20/25 11:22 Disease Does patient have nerve No 01/16/25 14:01 stimulator Patient instructed to have device shut off --Does patient have Pacemaker No 01/20/25 11:22 or ICD? When Was Last Pacemaker Check QUESTION #4 FULL TEXT: You/Your Family Experience fever (hyperthermia) with Anesthesia Last Oral Intake Last Oral intake: Last Oral Intake NPO since 06:30 01/20/25 11:22 Meds taken in AM with sips of Yes 01/20/25 11:22 water? Meds patient instructed to take am of surgery PONV PONV - it project lead: PONV - it project lead Female No 01/16/25 14:01 HX of Motion Sickness No 01/16/25 14:01 HX of N/V After Surgery No 01/16/25 14:01 Non-Smoker No 01/16/25 14:01 Duration of Surgery greater No 01/16/25 14:01 than 60 minutes Number of Risk Factors PONV Score Height & Weight Height & Weight: Anesthesia: Height & Weight Height 5 ft 4 in 01/20/25 11:22 Weight: 108 kg 01/20/25 11:22 Body Mass Index (BMI) 40.8 01/20/25 11:22 Respiratory Assessment Respiratory Assessment - it project lead: Respiratory Tract Infection Hx - it project lead Hx Respiratory Tract Infection No 01/16/25 14:01 STOP Sleep Apnea STOP Sleep Apnea - it project lead: STOP Sleep Apnea - it project lead Hx Hypertension Yes: PER CAREGIVER, WELL 01/16/25 14:01 CONTROLLED Hx Sleep Apnea No 01/16/25 14:01 CPAP No 01/16/25 14:01 BIPAP No 01/16/25 14:01 Do you snore loudly (louder No 01/16/25 14:01 than talking or can be heard Do you often feel tired/ No 01/16/25 14:01 fatigued/ sleepy during daytime? Has anyone observed you stop No 01/16/25 14:01 breathing during sleep? STOP Results Negative 01/16/25 14:01 QUESTION #5 FULL TEXT : Do you snore loudly (louder than talking or can be heard through closed doors)? 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 Specify any problems Hx of Preganancy in last 3 N/A 01/16/25 14:01 Months Nurse Filling Out Transfusion VCHRISTIN 01/16/25 14:01 & Questions: Date: 01/16/25 01/16/25 14:01 Time: 14:02 01/16/25 14:01 Patient unable to answer at this time (ie. confused, unrespo /Reproduction History /Reproductive History - it project lead: /Reproductive Hx- it project lead Hx Now Gestational Age (in weeks): EDC: Hx Hx Para Hx Section SAB Active Medications Active Medications: Current Medications Generic Name Dose Route Start Last Admin Trade Name Freq PRN Reason Stop Dose Admin Lactated Ringer's 1,000 mls @ 15 mls/hr 01/20/25 11:00 01/20/25 11:39 IV 15 mls/hr .Q48H MELITON Administration PFSH Medical History History of echocardiogram History of stress test Cardiology follow-up encounter Walker as ambulation aid On home oxygen therapy Shortness of breath on exertion Chronic cough History of edema H/O inguinal hernia Obesity (BMI 30.0-34.9) Bilateral lower extremity edema Hypersomnia Dyspnea Hypoxia Mental disability Speech abnormality Seasonal allergies Alcohol use Back pain Gastric reflux Hoarseness Chews tobacco History of heart attack Heart murmur Rib fractures HTN (hypertension) COVID-19 Home Medications ?Medication ?Instructions ?Recorded ?Last Taken ?Type ibuprofen 600 mg tablet 600 mg PO Q6H PRN PRN pain # 20 10/05/22 Unknown Rx TABLETS cetirizine 10 mg tablet 10 mg PO DAILY 12/29/22 Unkn own History pantoprazole 40 mg tablet,delayed 40 mg PO DAILY 12/2901/08/23 History release albuterol sulfate 90 mcg/actuation 2 puff inhalation Q 4H PRN Wheezing 05/31/23 Unknown History aerosol inhaler lisinopril 20 mg tablet 20 mg PO DAILY 05/31/23 Unkn own History montelukast 10 mg tablet 10 mg PO QHS 06/06/23 Unknow n History tamsulosin 0.4 mg capsule 0.4 mg PO DAILY 06/06/23 Unk nown History aspirin 81 mg tablet,delayed 81 mg PO DAILY #30 tabs 1 09/04/22 Unknown Rx release isosorbide mononitrate 60 mg 60 mg PO DAILY #30 tabs 1 09/04/22 Unknown Rx tablet,extended release 24 hr potassium chloride 20 mEq 20 meq PO DAILY #30 tabs Unknown Rx tablet,extended release acetaminophen 500 mg tablet 1,000 mg PO TID PRN pain 0 09/19/23 Unknown History (Tylenol Extra Strength) fluticasone propionate 50 1 spray intranasal DAILY all ergy 09/19/23 Unknown History mcg/actuation nasal symptoms spray,suspension polyethylene glycol 3350 17 gram 17 g PO DAILY PRN con stipation 09/19/23 Unknown History oral powder packet atorvastatin 20 mg tablet 20 mg PO QHS 11/05/24 Unknow n History coenzyme Q10 100 mg capsule 100 mg PO QDAY 11/05/24 Un known History famotidine 20 mg tablet 20 mg PO QDAY 11/05/24 Unkno wn History melatonin 5 mg capsule 5 mg PO QHS 11/05/24 Unknown History metoprolol succinate 100 mg 100 mg PO DAILY 11/05/24 0 01/20/25 07:30 History tablet,extended release 24 hr trazodone 100 mg tablet 100 mg PO QHS 11/05/24 Unkno wn History budesonide 32 mcg/actuation nasal 1 spray intranasal D AILY 12/30/24 Unknown History spray fluticasone 100 mcg-salmeterol 50 1 inh inhalation BID 12/30/24 Unknown History mcg/dose blistr powdr for inhalation (Advair Diskus) furosemide 20 mg tablet 60 mg PO QDAY 12/30/24 Unkno wn History guaifenesin 600 mg tablet, 600 mg PO TID PRN COUGH Unknown History extended release 12 hr metoprolol succinate 25 mg 25 mg PO QDAY 12/30/24 Unkn own History tablet,extended release 24 hr nystatin 100,000 unit/gram topical 1 applic topical TI D 12/30/24 Unknown History powder Allergy/AdvReac Type Severity Reaction Status Date / Time grass pollen Allergy Intermediate Chest Verified 01/20/25 11:21 tightness bee venom protein (honey bee) Allergy Anaphylaxis Verified 01/20/25 11:21 mushroom Allergy swollen Verified 01/20/25 11:21 Family History Mother Heart disease Father Heart disease Surgical History Hx of tonsillectomy Social History Smoking Status: Former smoker quit date: 09/09/75 pack-years: 5 Smokeless tobacco user: chewing tobacco alcohol intake: current alcohol intake frequency: a few times a month substance use type: does not use caffeine: Yes Review of Systems (Anesthesia) ROS Narrative System reviewed and no additional complaints, except as documented. Physical Exam Const alert, oriented x3 and average body habitus Resp normal respiratory effort, normal air movement and clear to auscultation bilaterally Cardio regular rate, regular rhythm, no murmurs and diaphoretic 01/20/25 1150 <Electronically signed by Baron Richardson MD> Date _ Baron Richardson MD Cosigner Signature: Date CC: ~ Signed [facility] Work Phone: Consult note Author Edson Veliz [facility] Note Date/Time January 20, 2025 12:1 9pm [facility] Medical Records Department [address] [place] [id number] Anesthesia Postop Eval I 01/20/25 1218 MR#: [id number] Acct: [id number] Name: SYLVIEOMERO Jet Seymour Rep #:[id number] : 1955 69 From: Edson Veliz PCP: Lester Cedeño DEVELOPMENT EDITOR-C Status:REG SDC Y Race: C Location: [place] [address] Anesthesia: Postop Eval I Current Vital Signs Temperature: 98 F Pulse Rate: 70 Blood Pressure: 90/43 Respiratory Rate: 16 Pulse Ox: 98 Oxygen Delivery Method: Room Air Assessment Airway patent: Yes Spontaneous unlabored respirations: Yes Mental status: Awake and Calm nausea: No Vomiting: No Anesthesia Complication: No Fluid Hydration Crystalloid volume administer (ml): 500 Total IV fluid infused: 500 Progress Note Anesthesia document: Postop Eval 1 completed: Yes 01/20/25 1219 <Electronically signed by Edson Veliz > Date _ Edson Veliz Cosigner Signature: Date CC: ~ Signed [facility] Work Phone: Evaluation noteNo assessment information available [facility] Work Phone: evaluation note* Diagnosis Onset Date Resolution Status Left inguinal hernia acute Hypoxia acute Left inguinal hernia acute [facility] Work Phone: Evaluation note* Diagnosis Onset Date Resolution Status Left inguinal hernia resolve d Hypoxia acute Left inguinal hernia resolve d Hypoxia acute Left inguinal hernia resolve d Dyspnea acute Hypoxia acute [facility] Work Phone: Evaluation note* Diagnosis Onset Date Resolution Status Dyspnea acute Hypoxia acute Dyspnea acute Hypersomnia acute Hypoxia acute Rib fractures acute [facility] Work Phone: Bkaluation note* Diagnosis Onset Date Resolution Status Hypoxia acute Dyspnea chronic Hypersomnia acute Hypoxia acute Dyspnea chronic Bilateral lower extremity edema chronic Dyspnea chronic HTN (hypertension) chronic Obesity (BMI 30.0-34.9) [facility] Work Phone: Evaluation note* Diagnosis Onset Date Resolution Status Hypersomnia acute Dyspnea chronic Bilateral lower extremity edema chronic Dyspnea chronic HTN (hypertension) chronic Obesity (BMI 30.0-34.9) 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 Bilateral lower extremity edema chronic Dyspnea chronic HTN (hypertension) chronic Obesity (BMI 30.0-34.9) [facility] Work Phone: Evaluation note* Diagnosis Onset Date Resolution Status Bilateral lower extremity edema chronic Dyspnea chronic HTN (hypertension) chronic Obesity (BMI 30.0-34.9) 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 Bilateral lower extremity edema chronic Dyspnea chronic HTN (hypertension) chronic Obesity (BMI 30.0-34.9) 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 Rep #:[id number] : 1955 69 From: Cordell Celestin DO PCP: Lester Cedeño [facility] DEVELOPMENT EDITOR-C Status:[facility] Location: [place] [address] HPI - General General Date of Admission: 01/20/25 Date of Service: 01/20/25 Chief Complaint: Screening colon HPI Narrative OMERO MERCER, is a 69 M who presents screening colonoscopy 01/01/2024 [facility] Assessment and Plan (1) Difficulty swallowing: Status: Acute Qualifiers: Dysphagia type: unspecified Qualified Code(s): R13.10 - Dysphagia, unspecified Plan: Patient is having dysphagia and epigastric pain suggestive of reflux. The patient also reports feeling like he is choking in the morning. The patient hasbeen started on a PPI but reports no improvement. I discussed EGD with possibledilation with him. I discussed the increased risks of bleeding and perforation. (2) Screen for colon cancer: Status: Acute Plan: Patient is overdue for screening colonoscopy. I explained endoscopy in detail to the patient. I explained the risks including but not limited to stroke or heart attack with anesthesia, perforation of the GI tract, bleeding, infection. I explained that any of these could necessitate further emergency surgery. The patient understands and all questions were answered sufficiently. The patient wishes to proceed with procedure. - c/o abdominal pain lower abdomen x1 year - pain is exacerbated with standing up and coughing - pain resolves with a BM - occasional BRBPR with a BM - denies constipation/diarrhea - denies any N/V - denies any HB - denies any dysphagia - famotidine once a day - maybe at HS - denies any coughing with swallowing - he reports a weight loss of 4lbs - denies any loss of appetite - he is eating well - denies any pain - denies seeing a pricing intern recently - he does not recall cancelling his last appt. - denies any dyspnea or CP - c/o difficulty sleeping, reports a h/o sleep study but never heard the results [facility] P: [phone] [email or web address] Medical History History of echocardiogram History of stress test Cardiology follow-up encounter Walker as ambulation aid On home oxygen therapy Shortness of breath on exertion Chronic cough History of edema H/O inguinal hernia Obesity (BMI 30.0-34.9) Bilateral lower extremity edema Hypersomnia Dyspnea Hypoxia Mental disability Speech abnormality Seasonal allergies Alcohol use Back pain Gastric reflux Hoarseness Chews tobacco History of heart attack Heart murmur Rib fractures HTN (hypertension) COVID-19 Home Medications ?Medication ?Instructions ?Recorded ?Last Taken ?Type ibuprofen 600 mg tablet 600 mg PO Q6H PRN PRN pain # 20 10/05/22 Unknown Rx TABLETS cetirizine 10 mg tablet 10 mg PO DAILY 12/29/22 Unkn own History pantoprazole 40 mg tablet,delayed 40 mg PO DAILY 12/2901/08/23 History release albuterol sulfate 90 mcg/actuation 2 puff inhalation Q 4H PRN Wheezing 05/31/23 Unknown History aerosol inhaler lisinopril 20 mg tablet 20 mg PO DAILY 05/31/23 Unkn own History montelukast 10 mg tablet 10 mg PO QHS 06/06/23 Unknow n History tamsulosin 0.4 mg capsule 0.4 mg PO DAILY 06/06/23 Unk nown History aspirin 81 mg tablet,delayed 81 mg PO DAILY #30 tabs 1 09/04/22 Unknown Rx release isosorbide mononitrate 60 mg 60 mg PO DAILY #30 tabs 1 09/04/22 Unknown Rx tablet,extended release 24 hr potassium chloride 20 mEq 20 meq PO DAILY #30 tabs Unknown Rx tablet,extended release acetaminophen 500 mg tablet 1,000 mg PO TID PRN pain 0 09/19/23 Unknown History (Tylenol Extra Strength) fluticasone propionate 50 1 spray intranasal DAILY all ergy 09/19/23 Unknown History mcg/actuation nasal symptoms spray,suspension polyethylene glycol 3350 17 gram 17 g PO DAILY PRN con stipation 09/19/23 Unknown History oral powder packet atorvastatin 20 mg tablet 20 mg PO QHS 11/05/24 Unknow n History coenzyme Q10 100 mg capsule 100 mg PO QDAY 11/05/24 Un known History famotidine 20 mg tablet 20 mg PO QDAY 11/05/24 Unkno wn History melatonin 5 mg capsule 5 mg PO QHS 11/05/24 Unknown History metoprolol succinate 100 mg 100 mg PO DAILY 11/05/24 0 01/20/25 07:30 History tablet,extended release 24 hr trazodone 100 mg tablet 100 mg PO QHS 11/05/24 Unkno wn History budesonide 32 mcg/actuation nasal 1 spray intranasal D AILY 12/30/24 Unknown History spray fluticasone 100 mcg-salmeterol 50 1 inh inhalation BID 12/30/24 Unknown History mcg/dose blistr powdr for inhalation (Advair Diskus) furosemide 20 mg tablet 60 mg PO QDAY 12/30/24 Unkno wn History guaifenesin 600 mg tablet, 600 mg PO TID PRN COUGH Unknown History extended release 12 hr metoprolol succinate 25 mg 25 mg PO QDAY 12/30/24 Unkn own History tablet,extended release 24 hr nystatin 100,000 unit/gram topical 1 applic topical TI D 12/30/24 Unknown History powder Allergy/AdvReac Type Severity Reaction Status Date / Time grass pollen Allergy Intermediate Chest Verified 01/20/25 11:21 tightness bee venom protein (honey bee) Allergy Anaphylaxis Verified 01/20/25 11:21 mushroom Allergy swollen Verified 01/20/25 11:21 Family History Mother Heart disease Father Heart disease Surgical History Hx of tonsillectomy Social History Smoking Status: Former smoker quit date: 09/09/75 pack-years: 5 Smokeless tobacco user: chewing tobacco alcohol intake: current alcohol intake frequency: a few times a month substance use type: does not use caffeine: Yes ROS Constitutional Constitutional: Denies fatigue, fever(s), poor appetite, weight gain or weight loss Gastrointestinal Gastrointestinal: Denies belching, bloating, change in bowel habits, change in stool character, chewing difficulty, coffee ground emesis, constipation, cramping, diarrhea, dyspepsia, dysphagia, early satiety, excessive flatus, fecalincontinence, heartburn, hematemesis, hematochezia, hemorrhoids, loose stools, melena, nausea, odynophagia, rectal bleeding, tenesmus, vomiting or weight changes Vital Signs Vital Signs Vital Signs: 01/20/25 11:22 01/20/25 11:22 Temperature 98.1 F Temperature Source Temporal Pulse Rate 88 Respiratory Rate 16 Respiratory Pattern Normal Blood Pressure 110/67 Blood Pressure Mean 81 Blood Pressure Source Monitor Blood Pressure Position Semi-Fowlers Blood Pressure Location Left Arm Pulse Ox 94 Oxygen Delivery Method Room Air Weight Weight: 238 lb 1.588 oz Body Mass Index (BMI) 40.8 Physical Exam Const no apparent distress Resp normal respiratory effort GI soft to palpation and non-tender Assessment & Plan Assessment/Plan (1) Rectal bleeding: (2) Screen for colon cancer: (3) Lower abdominal pain: PLAN: Assessment and Plan Assessment and Plan (1) Screen for colon cancer: Status: Acute (2) Rectal bleeding: Status: Acute (3) Lower abdominal pain: Status: Acute Medications: New peg 3350-electrolytes 236-22.74-6.74 -5.86 gram (Golytely) as directed for split dose bowel prep 240 mL PO Q10M 4,000 mL 0RF Plan 69-year-old male presents for initial consultation. He was seen by Malu December 2023 for complaints of dysphagia and epigastric pain suggestive of reflux. It was recommended he schedule an EGD for further evaluation as well as screening colonoscopy; however, he was unable to complete testing due to lack oftransportation. He presently denies any HB, N/V, epigastric pain, or dysphagia. He does endorse occasional BRBPR and complains of lower abdominal pain. Pain is exacerbated with standing and coughing. Although, he reports improvement in painwith a bowel movement. He will proceed with colonoscopy. I have recommended he follow-up with pulmonology to review previous sleep study. Patient Instructions: Colonoscopy - GoLyte bowel prep Schedule follow-up [facility] 01/20/25 1143 <Electronically signed by Cordell Celestin DO> Cosigner Signature (if applicable): CC: Cordell Celestin DO; Lester Noris DEVELOPMENT EDITOR-C Beam~ Signed [facility] Work Phone: Hospital Discharge instructions Additional Instructions Thank you for trusting us with your care today! Please take Tylenol (2 pills, 650 mg), ibuprofen (2 pills, 400 mg) every 6 hours as needed for pain and fever control. Please begin taking Lasix daily to alleviate swelling in your lower extremities. Please take prednisone for next 5 days to decrease inflammation in your lungs. Please use prescribed inhaler as needed for shortness of breath Please use your home oxygen as needed. Please return to the emergency department if your symptoms change or worsen. Specifically for shortness of breath worsens. Specific if develop loss of consciousness, chest pain. Please follow with your primary care physician for further outpatient evaluation and management[facility] Work Phone: Summary Purpose Family History Relationship Condition Age at Onset Recorded Date/T kyle mother Cardiac disease Unknown father Cardiac disease Unknown Advance Directives Advance Directive Response Recorded Date/ Time Living Will No April 16, 2021 8:44am Power of Community Service Specialist No April 8:44am Advance Directive Response Recorded Date/ Time Living Will No April 16, 2021 7:44am Power of Community Service Specialist No April 7:44am Advance Directive Response Recorded Date/ Time Living Will No June 27 10:11am Power of Community Service Specialist No June 27, 2022 10:11am Advance Directive Response Recorded Date/ Time Living Will No October 05, 2022 5:47pm Power of Community Service Specialist No October 05 5:47pm Advance Directive Response Recorded Date/ Time Living Will Yes December 29, 2022 8 :08am Power of Community Service Specialist No December 29, 2022 8:08am Advance Directive Response Recorded Date/ Time Living Will No April 26, 2023 9:50am Power of Community Service Specialist No April 9:50am Advance Directive Response Recorded Date/ Time Living Will No April 26, 2023 8:50am Power of Community Service Specialist No April 8:50am Advance Directive Response Recorded Date/ Time Living Will Yes June 12 8:22am Power of Community Service Specialist No June 12, 2023 8:22am Advance Directive Response Recorded Date/ Time Advance Directives No July 12, 2023 1:14pm Living Will No July 12 1:14pm Power of Community Service Specialist No July 12, 2023 1:14pm Advance Directive Response Recorded Date/ Time Advance Directives No July 12, 2023 2:14pm Advance Directive Response Recorded Date/ Time Do you have a Healthcare Power of Community Service Specialist? No January 16, 2025 2:01pm Advance Directives No July 12, 2023 2:14pm Chief Complaint and Reason for Visit Chief Complaint ABD PAIN Chief Complaint fall PAIN IN LEFT KNEE Chief Complaint fall PAIN IN LEFT KNEE LEFT RIB PAIN Chief Complaint PAIN IN LEFT KNEE LEFT RIB PAIN L INGUINAL HERNIA AT RISK FOR INCARCERATION Robotic lt inguinal hernia, poss bilateral Robotic lt inguinal hernia, poss bilateral Robotic lt inguinal hernia, poss bilateral Robotic lt inguinal hernia, poss bilateral Robotic lt inguinal hernia, poss bilateral Reason for Visit Left inguinal hernia Hypoxia Left inguinal hernia Chief Complaint L INGUINAL HERNIA AT RISK FOR INCARCERATION PREOP Robotic lt inguinal hernia, poss bilateral Robotic lt inguinal hernia, poss bilateral Robotic lt inguinal hernia, poss bilateral Robotic lt inguinal hernia, poss bilateral Robotic lt inguinal hernia, poss bilateral INGUINAL HERNIA 6/5 o2 drop sob Reason for Visit Left inguinal hernia Hypoxia Left inguinal hernia Hypoxia Left inguinal hernia Dyspnea Hypoxia Chief Complaint o2 drop sob Hypoxemia Hypoxemia 2 M FU E ORDER Reason for Visit Dyspnea Hypoxia Dyspnea Hypersomnia Hypoxia Rib fractures Chief Complaint o2 drop sob Hypoxemia Hypoxemia 2 M FU E ORDER HYPOXEMIA (TIP) E-ORDER Reason for Visit Hypoxia Dyspnea Hypersomnia Hypoxia Dyspnea Bilateral lower extremity edema Dyspnea HTN (hypertension) Obesity (BMI 30.0-34.9) Chief Complaint o2 drop sob Hypoxemia Hypoxemia 2 M FU E ORDER HYPOXEMIA (TIP) E-ORDER chest pain Reason for Visit Hypoxia Dyspnea Hypersomnia Hypoxia Dyspnea Bilateral lower extremity edema Dyspnea HTN (hypertension) Obesity (BMI 30.0-34.9) Chief Complaint sob Hypoxemia Hypoxemia 2 M FU E ORDER HYPOXEMIA (TIP) E-ORDER chest pain 4 W FU Hypoxemia Other forms of dyspnea Reason for Visit Hypersomnia Dyspnea Bilateral lower extremity edema Dyspnea HTN (hypertension) Obesity (BMI 30.0-34.9) Bilateral lower extremity edema Dyspnea HTN (hypertension) Obesity (BMI 30.0-34.9) Chief Complaint HYPOXEMIA (ITP) E-ORDER chest pain 4 W FU Hypoxemia Other forms of dyspnea HYPERSOMNIA 3 M FU Reason for Visit Bilateral lower extr emity edema Dyspnea HTN (hypertension) Obesity (BMI 30.0-34.9) Bilateral lower extremity edema Dyspnea HTN (hypertension) Obesity (BMI 30.0-34.9) Bilateral lower extremity edema Coronary artery disease Dyspnea HTN (hypertension) Obesity (BMI 30.0-34.9) Chief Complaint Admit Date New Patient November 05, 2024 10:5 2am LEFT HIP November 21, 2024 9:4 3am Overdue FU December 02, 2024 3:1 7pm LUMBAR SPONDYLOSIS/OA L HIP/TROCH BURSIT IS.RX HERE December 23, 2024 1:00pm Follow up per [place] December 30, 2024 7:50a m Reason for Visit Admit Date Lower abdominal pain November 05, 2024 10: 52am Rectal bleeding November 05, 2024 10:5 2am Screen for colon cancer November 05, 2024 10:52am Arthritis of left hip November 21, 2024 9 :43am 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 November 21, 2024 9:43am Greater trochanteric bursitis of left hi p November 21, 2024 9:43am Coronary artery disease December 02, 2024 3:17pm HTN (hypertension) December 02, 2024 3:1 7pm CHRIS (obstructive sleep apnea) December 30, 2024 7:50am Chief Complaint Admit Date New Patient November 05, 2024 10:5 2am LEFT HIP November 21, 2024 9:4 3am Overdue FU December 02, 2024 3:1 7pm Follow up per RI December 30, 2024 7:50a m LUMBAR SPONDYLOSIS/OA L HIP/TROCH BURSIT IS.RX HERE January 14, 2025 9:00am Reason for Visit Admit Date Lower abdominal pain November 05, 2024 10: 52am Rectal bleeding November 05, 2024 10:5 2am Screen for colon cancer November 05, 2024 10:52am Arthritis of left hip November 21, 2024 9 :43am 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 November 21, 2024 9:43am Greater trochanteric bursitis of left hi p November 21, 2024 9:43am Coronary artery disease December 02, 2024 3:17pm HTN (hypertension) December 02, 2024 3:1 7pm CHRIS (obstructive sleep apnea) December 30, 2024 7:50am Hypoxia December 30, 2024 7:50a m Mental disability December 30, 2024 7:50a m Obesity (BMI 30.0-34.9) December 30, 2024 7 :50am Seasonal allergies December 30, 2024 7:50a m Speech abnormality December 30, 2024 7:50a m Lower abdominal pain January 20, 2025 10: 34am Rectal bleeding January 20, 2025 10:3 4am Screen for colon cancer January 20, 2025 10:34am Additional Source Comments (unrecognized sect ion and content) No Status Records FoundNo Status Records Found INFORMATION SOURCE (unrecogn ized section and content) DATE CREATED AUTHOR 01/30/2018 [facility] DATE CREATED AUTHOR AUTHOR'S ORGANIZ ATION 01/16/2025 [facility] Goals (unrecognized section and content) Goals may be documented in a n alternate sectionGoals may be documented in an alternate sectionGoals may be documented in an alternate sectionGoals may be documented in an alternate sectionGoals may be documented in an alternate sectionGoals may be documented in an alternate sectionGoals may be documented in an alternate sectionGoals may be documented in an alternate sectionGoals may be documented in an alternate sectionGoals may be documented in an alternate sectionGoals may be documented in an alternate section Care Teams (unrecognized sec tion and content) Team Status: Active Member Role Status Dates CRISTINA Cruz Primary Care Provider Active Team Status: Inactive Member Role Status Dates [facility] Primary Care Provider A ctive Start: November 05, 2024 End: November 05, 2024 [facility] Referring Provider Michelle avila Start: November 05, 2024 End: November 05, 2024 CRISTINA Huston Attending Provider Active Start: November 05, 2024 End: November 05, 2024 Team Status: Inactive Member Role Status Dates [facility] Primary Care Provider A ctive Start: November 21, 2024 End: November 21, 2024 [facility] Referring Provider Acti ve Start: November 21, 2024 End: November 21, 2024 Dr. Herbert Pizarro DO Attending Provider Active Start: November 21, 2024 End: November 21, 2024 Team Status: Inactive Member Role Status Dates [facility] Primary Care Provider A ctive Start: December 02, 2024 End: December 02, 2024 [facility] Referring Provider Acti ve Start: December 02, 2024 End: December 02, 2024 Fany Vigil DEVELOPMENT EDITOR, DEVELOPMENT EDITOR-C Attending Provider Active Start: December 02, 2024 End: December 02, 2024 Team Status: Inactive Member Role Status Dates [facility] Primary Care Provider A ctive Start: December 30, 2024 End: December 30, 2024 [facility] Referring Provider Acti ve Start: December 30, 2024 End: December 30, 2024 Jess Rodríguez DEVELOPMENT EDITOR, DEVELOPMENT EDITOR-C Attending Provider Active Start: December 30, 2024 End: December 30, 2024 Team Status: Active Member Role Status Dates [facility] Primary Care Provider A ctive Start: January 14, 2025 Dr. Herbert Pizarro DO Attending Provider Active Start: January 14, 2025 Dr. Herbert Pizarro DO Referring Provider Active Start: January 14, 2025 Team Status: Inactive Member Role Status Dates Dr. Cordell Celestin DO Attending Provider Active Start: January 20, 2025 End: January 20, 2025 Zebulun Beam VSC, DEVELOPMENT EDITOR-C Primary Care Provider Active Start: January 20, 2025 End: January 20, 2025 Zebulun Beam VSC, DEVELOPMENT EDITOR-C Referring Provider Active Start: January 20, 2025 End: January 20, 2025 Team Status: Active Member Role Status Dates Dr. Cordell Celestin DO Attending Provider Active Start: January 20, 2025 Dr. Cordell Celestin DO Other Provider Active St art: January 20, 2025 Zebulun Beam VSC, DEVELOPMENT EDITOR-C Primary Care Provider Active Start: January 20, 2025 Zebulun Beam VSC, DEVELOPMENT EDITOR-C Referring Provider Active Start: January 20, 2025 Team Status: Active Member Role Status [facility] Primary Care Provider A ctive Team Status: Inactive Member Role Status Dates Tess Peoples DEVELOPMENT EDITOR, DEVELOPMENT EDITOR-C Attending Provider Active [facility] Primary Care Provider A ctive Team Status: Inactive Member Role Status [facility] Primary Care Provider A ctive Tess Peoples DEVELOPMENT EDITOR, DEVELOPMENT EDITOR-C Attending Provider, Referrin g Provider Active Team Status: Inactive Member Role Status [facility] Primary Care Provider A ctive Dr. Gab Schuler DO Attending Provider, Emergency P emely Active Team Status: Inactive Member Role Status [facility] Primary Care Provider A ctive Dr. Gee Talley DO Emergency Provider Active Team Status: Inactive Member Role Status [facility] Primary Care Provider, Referring Provider Active Dr. Derrell Toribio MD Attending Provider Active Team Status: Active Member Role Status [facility] Primary Care Provider A ctive Dr. Derrell Toribio MD Attending Pr ovider, Referring Provider, Other Provider Active Team Status: Active Member Role Status [facility] Primary Care Provider A ctive Dr. Derrell Toribio MD Admit Provid er, Referring Provider, Other Provider Active Dr. Delicia Davis MD Attending Provider, Other Provid er Active Team Status: Active Member Role Status [facility] Primary Care Provider A ctive Dr. Derrell Toribio MD Admit Provid er, Attending Provider, Referring Provider, Other Provider Active Dr. Delicia Davis MD Other Provider Active Team Status: Inactive Member Role Status [facility] Primary Care Provider A ctive Dr. Gee Talley DO Attending Provider, Emergency Provider Active Team Status: Inactive Member Role Status [facility] Primary Care Provider A ctive Dr. Derrell Toribio MD Admit Provid er, Attending Provider, Referring Provider Active Dr. Delicia Davis MD Other Provider Active Team Status: Active Member Role Status [facility] Primary Care Provider A ctive Dr. Derrell Toribio MD Admit Provider, Other Prov ider Active Dr. Delicia Davis MD Attending Provider, Other Provid er Active Team Status: Inactive Member Role Status [facility] Primary Care Provider, Referring Provider Active Dr. Talat Corado MD Attending Provider Active Team Status: Active Member Role Status [facility] Primary Care Provider A ctive Dr. Kenton Couch MD Attending Provider Active Dr. Derrell Toribio MD Referring Provider Active Team Status: Inactive Member Role Status [facility] Primary Care Provider A ctive Dr. Rex Urbano DO Emergency Provider Active Team Status: Active Member Role Status [facility] Primary Care Provider A ctive Dr. Talat Corado MD Attending Provider , Referring Provider, Other Provider Active Team Status: Inactive Member Role Status [facility] Primary Care Provider A ctive Dr. Rex Urbano DO Attending Provider, Emergency P rovider Active Team Status: Inactive Member Role Status [facility] Primary Care Provider A ctive Dr. Talat Corado MD Attending Provider, Referring Pr ovider Active Team Status: Inactive Member Role Status [facility] Primary Care Provider, Referring Provider Active Dr. Kenton Couch MD Attending Provider Active Team Status: Inactive Member Role Status [facility] Primary Care Provider A ctive Dr. Kenton Couch MD Attending Provider, Referring Pr ovider Active Team Status: Inactive Member Role Status [facility] Primary Care Provider A ctive Dr. Ulisses Young DO Emergency Provider Active Team Status: Active Member Role Status [facility] Primary Care Provider A ctive Dr. Kenton Couch MD Attending Provider , Referring Provider, Other Provider Active Team Status: Inactive Member Role Status [facility] Primary Care Provider A ctive Dr. Ulisses Young DO Attending Provider, Emergency Pro vider Active Team Status: Inactive Member Role Status [facility] Primary Care Provider A ctive Start: November 05, 2024 End: November 05, 2024 [facility] Referring Provider Acti ve Start: November 05, 2024 End: November 05, 2024 CRISTINA Huston Attending Provider Active Start: November 05, 2024 End: November 05, 2024 Team Status: Inactive Member Role Status [facility] Primary Care Provider A ctive Start: November 21, 2024 End: November 21, 2024 [facility] Referring Provider Acti ve Start: November 21, 2024 End: November 21, 2024 Dr. Herbert Pizarro DO Attending Provider Active Start: November 21, 2024 End: November 21, 2024 Team Status: Inactive Member Role Status [facility] Primary Care Provider A ctive Start: December 02, 2024 End: December 02, 2024 [facility] Referring Provider Acti ve Start: December 02, 2024 End: December 02, 2024 Fany Vigil DEVELOPMENT EDITOR, DEVELOPMENT EDITOR-C Attending Provider Active Start: December 02, 2024 End: December 02, 2024 Team Status: Active Member Role Status [facility] Primary Care Provider A ctive Start: December 23, 2024 Dr. Herbert Pizarro DO Attending Provider Active Start: December 23, 2024 Dr. Herbert Pizarro DO Referring Provider Active Start: December 23, 2024 Team Status: Inactive Member Role Status [facility] Primary Care Provider A ctive Start: December 30, 2024 End: December 30, 2024 [facility] Referring Provider Acti ve Start: December 30, 2024 End: December 30, 2024 Jess Rodríguez DEVELOPMENT EDITOR, DEVELOPMENT EDITOR-C Attending Provider Active Start: December 30, 2024 End: December 30, 2024 Team Status: Active Member Role Status Dates Zebulun Beam VSC, DEVELOPMENT EDITOR-C Primary Care Provider Active Team Status: Active Member Role Status [facility] Primary Care Provider A ctive Start: January 14, 2025 Dr. Herbert Pizarro DO Attending Provider Active Start: January 14, 2025 Dr. Herbert Pizarro DO Referring Provider Active Start: January 14, 2025 Team Status: Inactive Member Role Status Dates Dr. Cordell Celestin DO Attending Provider Active Start: January 20, 2025 End: January 20, 2025 Zebulun Beam VSC, DEVELOPMENT EDITOR-C Primary Care Provider Active Start: January 20, 2025 End: January 20, 2025 Zebulun Beam VSC, DEVELOPMENT EDITOR-C Referring Provider Active Start: January 20, 2025 End: January 20, 2025 Team Status: Active Member Role Status Dates Dr. Cordell Celestin DO Attending Provider Active Start: January 20, 2025 Dr. Cordell Celestin DO Other Provider Active St art: January 20, 2025 Zebulun Beam VSC, DEVELOPMENT EDITOR-C Primary Care Provider Active Start: January 20, 2025 Lester Beam VSC, DEVELOPMENT EDITOR-C Referring Provider Active Start: January 20, 2025 FOR RECORDS PERTAINING TO PATIENTS WHO ARE [...] BE BASED ON THE PRIMARY CLINICAL RECORDS. [facility] [employer] [facility]. provides no warranty or guarantee of the accuracy or completeness of information in this document.
== END 2025-01-20 13:23 | disposition home or self-care (01) ==
LOC: EN 10:35 → AC 10:37
PROVIDERS: Visit Provider Internal Medicine Gastroenterology
PROC: 0DJD8ZZ Inspection of Lower Intestinal Tract, Via Natural or Artificial Opening Endoscopic (ICD-10-PCS; CPT 45378; principal; 2025-01-20 11:25)
DX: Z12.11 Encounter for screening for malignant neoplasm of colon (principal); K62.5 Hemorrhage of anus and rectum; K57.90 Diverticulosis of intestine, part unspecified, without perforation or abscess without bleeding; R13.10 Dysphagia, unspecified; K21.9 Gastro-esophageal reflux disease without esophagitis; Z87.891 Personal history of nicotine dependence; I10 Essential (primary) hypertension; R10.30 Lower abdominal pain, unspecified; Z79.899 Other long term (current) drug therapy; Z79.82 Long term (current) use of aspirin
CPT/HCPCS: 45378; J2405